=== PATIENT | female | born 2000 | race Caucasian/White ===

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

== ENCOUNTER 2018-04-15 08:02 | Outpatient (CLI) | payer OTHER, SELFPAY ==
[2018-04-15 08:35] VITALS: BMI 35.3
[2018-04-15 08:43] VITALS: BP 138/77; PULSE 69; RESP 20; TEMP 36.7; O2SAT 99; BMI 35.3
[2018-04-15 08:46] LABS: Appearance,Urine CLEAR (Clear); Bilirubin,Urine Negative (Negative); Blood, Urine Negative (Negative); Color,Urine YELLOW (Yellow); Glucose,Urine (UA) Negative (Negative); Ketones,Urine Negative (Negative); Leukocyte Esterase,Urine 1+ (Negative); Microscopic, Urine URINE MICROSCOPIC (MICROSCOPIC); Nitrate,Urine Negative (Negative); PH,Urine 6.5 (5.0-8.5); Protein,Urine Negative (Negative); Specific Gravity, Urine 1.015 (1.005-1.030); Urobilinogen,Urine 0.2 EU/dl (0.2)
[2018-04-15 08:57] LABS: Amphetamine/Metha Screen,Urine Negative ng/mL (<1000); Barbiturates Screen,Urine Negative ng/mL (<200); Benzodiazepines Screen,Urine Negative ng/mL (<200); Cannabinoid Screen,Urine Negative ng/mL (<50); Cocaine Screen,Urine Negative ng/mL (<300); Methadone Screen,Urine Negative ng/mL (<300); Opiate Screen,Urine Negative ng/mL (<300); Phencyclidine Screen,Urine Negative ng/mL (<25)
[2018-04-15 09:01] LABS: Bacteria,Urine 3+ /lpf
--- NOTE | 2018-04-15 09:59 | P.PN_ITS ---
Internal Medicine - PN: Subj *Date: 04/15/18 *Time: 09:57 Interval history: She is a 18-year-old 1 para 0 at 37 weeks gestational age. She had some nausea vomiting last night and then some diarrhea this morning. She thinks she may be dehydrated. She is otherwise well. Denies any contractions. Exam Vital signs and Labs for Last 24 Hours: Temp Pulse Resp BP Pulse Ox 98.0 F 69 20 138/77 99 04/15/18 08:43 04/15/18 08:43 04/15/18 08:43 04/15/18 08:43 04/15/18 08:43 Laboratory Results - last 24 hr 04/15/18 08:15: Urine Color Yellow, Urine Appearance Clear, Urine pH 6.5, Ur Specific [place] 1.015, Urine Protein Negative, Urine Glucose (UA) Negative, Urine Ketones Negative, Urine Blood Negative, Urine Nitrate Negative, Urine Bilirubin Negative, Urine Urobilinogen 0.2, Ur Leukocyte Esterase 1+ A, Urine WBC 5-10, Ur Squamous Epith Cells 10-20, Urine Bacteria 3+ 04/15/18 08:15: Urine Opiates Screen Negative, Urine Methadone Screen Negative, Ur Barbituates Screen Negative, Ur Phencyclidine Scrn Negative, Ur Amphetamines Screen Negative, U Benzodiazepines Scrn Negative, Urine Cocaine Screen Negative , U Marijuana (THC) Screen Negative I & O for Last 24 hours: Intake & Output 04/12/18 04/13/18 04/14/18 04/15/18 11:59 11:59 11:59 11:59 Weight 199 lb 8 oz - Constitutional no acute distress - *Routine HEENT Exam Head: Present: normocephalic - *Routine Respiratory Exam Comments: She is breathing normal. She has no respiratory distress. - *Routine Exam Comments: Her cervix is 3 cm 75% and station -1. Assessment and Plan (1) Nausea/vomiting in Current visit: Yes Status: Acute Category: Medical Code(s): O21.9 - Vomiting of , unspecified (2) Dehydration during Current visit: Yes Status: Acute Category: Medical Code(s): O26.899 - Other specified related conditions, unspecified trimester; E86.0 - Dehydration - Assessment and plan all Dx Assessment and Plan for all problems:: We have started an IV. We will give her a liter fluid and we will get a CBC and a Chem-7. She is seeing a doctor in [place] and follow-up with them as planned.
[2018-04-15 10:14] LABS: Basophils % 0.2 % (0.1-2.0); Eosinophils # 0.1 K/mm3 (0.0-0.4); Eosinophils % 0.9 % (0.1-12.0); Hematocrit 31.2 % (37.0-47.0); Hemoglobin 10.8 g/dL (12.2-16.2); Lymphocytes # 2.2 K/mm3 (0.7-4.5); Lymphocytes % 20.7 K/mm3 (10-50); Mean Corpuscular HGB Conc 34.4 g/dL (31.8-35.4); Mean Corpuscular Hemoglobin 30.9 pg (27.0-31.2); Mean Corpuscular Volume 89.9 fl (81-99); Mean Platelet Volume 10.4 fl (7.4-10.4); Monocytes # 0.7 K/mm3 (0.1-1.0); Monocytes % 6.9 % (1.7-9.3); Neutrophils # 7.4 K/mm3 (1.8-7.8); Neutrophils % 71.3 % (37.0-80.0); Platelet Count 221 K/mm3 (142-424); Red Blood Count 3.48 M/mm3 (4.20-5.40); Red Cell Distribution Width 13.7 % (11.5-17.5); White Blood Count 10.4 K/mm3 (4.5-13.0)
[2018-04-15 10:18] LABS: Anion Gap 15.1 mEq/L (5-15); Blood Urea Nitrogen 5 mg/dL (7-18); Calcium 9.5 mg/dL (8.5-10.1); Carbon Dioxide 23 mmol/L (21.0-32.0); Chloride 104 mmol/L (98-107); Creatinine Clearance Estimated 273 mL/min (0-300); Creatinine,Serum 0.47 mg/dL (0.55-1.02); Estimated Glomerular Filt Rate 169 ml/min (>60); GFR (African American) 204 ML/MIN (>60); Glucose 89 mg/dL (74-106); Potassium 4.1 mmoL/L (3.5-5.1); Sodium 138 mmol/L (136-145)
== END 2018-04-15 12:11 | disposition home or self-care (01) ==
LOC: OBOUT 08:05 → OB 08:06
PROVIDERS: Visit Provider Nurse Practitioner Obstetrics & Gynecology
DX: O26.893 Other specified pregnancy related conditions, third trimester (principal); Z3A.37 37 weeks gestation of pregnancy; R11.0 Nausea; R19.7 Diarrhea, unspecified; R10.9 Unspecified abdominal pain
CPT/HCPCS: 59025; 80048; 80305; 81001; 85025; 87086; 96360; 96361; 96372

== ENCOUNTER → 2018-07-05 16:19 | Outpatient (CLI) | payer OTHER, SELFPAY ==
[2018-07-07 07:14] LABS: Hep A Ab, IgM Negative (Negative); Hepatitis B Core Antibody IgM Negative (Negative); Hepatitis B Surface Antigen Negative (Negative)
[2018-07-09 06:15] LABS: Hepatitis C Antibody <0.1 s/co ratio (0.0-0.9)
== END ==
PROVIDERS: PCP Nurse Practitioner Family; Visit Provider Nurse Practitioner Family
DX: R53.83 Other fatigue (principal)
CPT/HCPCS: 36415; 80074

== ENCOUNTER → 2019-01-24 09:52 | Outpatient (CLI) | payer OTHER, SELFPAY ==
[2019-01-24 10:22] LABS: Basophils % 0.4 % (0.1-2.0); Eosinophils # 0.1 K/mm3 (0.0-0.4); Eosinophils % 1.3 % (0.1-12.0); Hemoglobin 12.7 g/dL (12.2-16.2); Lymphocytes # 2.3 K/mm3 (0.7-4.5); Lymphocytes % 35.7 % (10-50); Mean Corpuscular HGB Conc 33.5 g/dL (31.8-35.4); Mean Corpuscular Hemoglobin 29.9 pg (27.0-31.2); Mean Corpuscular Volume 89.2 fl (81-99); Mean Platelet Volume 7.5 fl (7.4-10.4); Monocytes # 0.3 K/mm3 (0.1-1.0); Monocytes % 5.2 % (1.7-9.3); Neutrophils # 3.6 K/mm3 (1.8-7.8); Neutrophils % 57.5 % (37.0-80.0); Platelet Count 354 K/mm3 (142-424); Red Blood Count 4.26 M/mm3 (4.20-5.40); Red Cell Distribution Width 13.1 % (11.5-17.5); White Blood Count 6.3 K/mm3 (4.8-10.8)
[2019-01-24 10:30] LABS: INR 1.04 (0.9-1.1); Prothrombin Time 10.7 seconds (9.4-11.8)
[2019-01-24 11:27] LABS: Alanine Aminotransferase 27 U/L (12-78); Albumin Level 3.6 gm/dL (3.4-5.0); Alkaline Phosphatase 77 U/L (46-116); Anion Gap 13.6 mEq/L (5-15); Aspartate Amino Transferase 14 U/L (15-37); Bilirubin,Total 0.2 mg/dL (0.2-1.0); Blood Urea Nitrogen 14 mg/dL (7-18); Calcium 9.1 mg/dL (8.5-10.1); Carbon Dioxide 24 mmol/L (21.0-32.0); Chloride 106 mmol/L (98-107); Creatinine,Serum 0.48 mg/dL (0.55-1.02); Estimated Glomerular Filt Rate 163 ml/min (>60); GFR (African American) 198 ML/MIN (>60); Globulin 3.6 gm/dl (1.3-3.2); Glucose 93 mg/dL (74-106); Potassium 4.6 mmoL/L (3.5-5.1); Sodium 139 mmol/L (136-145); Total Protein,Serum 7.2 gm/dL (6.4-8.2)
[2019-01-25 08:12] LABS: HIV Screen 4th Generation wRfx Non Reactive (Non Reactive)
[2019-01-25 09:29] LABS: Hep A Ab, IgM Negative (Negative); Hep B Core Ab, Total Negative (Negative); Hepatitis B Core Antibody IgM Negative (Negative); Hepatitis B Surface Antigen Negative (Negative)
[2019-01-25 14:43] LABS: Hep A Ab, Total Negative (Negative); Hepatitis B Surf Ab Quant 22.3 mIU/mL (Immunity>9.9); Hepatitis C Antibody <0.1 s/co ratio (0.0-0.9)
[2019-01-26 11:10] LABS: HCV Genotype Charge YES
== END ==
PROVIDERS: Visit Provider Nurse Practitioner Family
DX: Z20.5 Contact with and (suspected) exposure to viral hepatitis (principal)
CPT/HCPCS: 36415; 80053; 80074; 85025; 85610; 86703; 86704; 86706; 86708; 87340; 87522; 87902; G0432

== ENCOUNTER → 2019-04-02 16:52 | Outpatient (CLI) | payer OTHER, SELFPAY ==
[2019-04-02 20:10] LABS: T4 (Thyroxine) 8.3 ug/dl (4.7-13.3); Thyroid Stimulating Hormone 0.77 uIU/ml (0.358-3.740)
== END ==
PROVIDERS: Visit Provider Nurse Practitioner Family
DX: E66.9 Obesity, unspecified (principal)
CPT/HCPCS: 84436; 84443

== ENCOUNTER 2019-04-19 04:08 | Observation (INO) ==
[2019-04-19 04:55] LABS: Basophils % 0.2 % (0.1-2.0); Eosinophils % 0.3 % (0.1-12.0); Hematocrit 36.4 % (37.0-47.0); Hemoglobin 12.1 g/dL (12.2-16.2); Lymphocytes # 2.3 K/mm3 (0.7-4.5); Lymphocytes % 25.5 % (10-50); Mean Corpuscular HGB Conc 33.2 g/dL (31.8-35.4); Mean Corpuscular Volume 85.7 fl (81-99); Mean Platelet Volume 8.4 fl (7.4-10.4); Monocytes # 0.5 K/mm3 (0.1-1.0); Monocytes % 5.4 % (1.7-9.3); Neutrophils # 6.2 K/mm3 (1.8-7.8); Neutrophils % 68.5 % (37.0-80.0); Platelet Count 331 K/mm3 (142-424); Red Blood Count 4.25 M/mm3 (4.20-5.40); White Blood Count 9.1 K/mm3 (4.8-10.8)
[2019-04-19 05:00] LABS: Albumin Level 3.6 gm/dL (3.4-5.0); Albumin/Globulin Ratio 0.9 (1.1-1.8); Anion Gap 13.6 mEq/L (5-15); Bilirubin,Total 0.3 mg/dL (0.2-1.0); C-Reactive Protein 0.2 mg/L (0.0-0.9); Calcium 8.9 mg/dL (8.5-10.1); Globulin 4.2 gm/dl (1.3-3.2); Total Protein,Serum 7.8 gm/dL (6.4-8.2)
[2019-04-19 05:39] LABS: Microscopic, Urine URINE MICROSCOPIC (MICROSCOPIC)
[2019-04-19 05:42] LABS: Appearance,Urine CLEAR (Clear); Bilirubin,Urine Negative (Negative); Blood, Urine TRACE-L (Negative); Color,Urine YELLOW (Yellow); Glucose,Urine (UA) Negative (Negative); Ketones,Urine Negative (Negative); Leukocyte Esterase,Urine TRACE (Negative); PH,Urine 7.5 (5.0-8.5); Protein,Urine Negative (Negative); Specific Gravity, Urine 1.025 (1.005-1.030); Urobilinogen,Urine 0.2 EU/dl (0.2)
[2019-04-19 05:43] LABS: Erythrocyte Sedimentation Rate 36 mm/hr (0-20)
[2019-04-19 05:50] LABS: Bacteria,Urine 1+ /lpf; Mucus,Urine 1+ /lpf
--- NOTE | 2019-04-19 07:31 | Emergency Department Note ---
ED Disposition Clinical Impression: Acute appendicitis Qualifiers: Acute appendicitis type: unspecified acute appendicitis type Qualified Code(s): K35.80 - Unspecified acute appendicitis Disposition: Admitted as Observation Condition on Discharge: Good Instructions: DI for Acute Abdomen Referrals: Andra Paz APRN [Primary Care Provider] - - Critical Care Critical Care Time: No Attestation: On 04/19/19, the high probability of a clinically significant, sudden or life threatening deterioration of the following system(s) required my full and direct attention, intervention and personal management. The time I documented below is in addition to time spent performing reported procedures but includes the following listed in this critical care notation. Medical Decision Making - Medical Records Medical records reviewed: Yes: I reviewed the patient's medical records. - Rafa Inquiry Pt receiving controlled substance: No Vital Signs: 04/19/19 04:17 Temperature 98.3 F Temperature Source Oral Pulse Rate [Right] 86 Respiratory Rate 16 Blood Pressure [Right Arm] 117/60 Blood Pressure Mean [Right Arm] 79 Blood Pressure Source [Right Arm] Automatic Cuff Blood Pressure Position [Right Arm] Sitting 02 Sat by Pulse Oximetry 97 Oxygen Delivery Method Room Air - Lab Data Lab results reviewed: Yes: I reviewed the patient's lab results. Lab Results 04/19/19 04:35: WBC 9.1, RBC 4.25, Hgb 12.1 L, Hct 36.4 L, MCV 85.7, MCH 28.5, MCHC 33.2, RDW 13.0, Plt Count 331, MPV 8.4, Neut % (Auto) 68.5, Lymph % (Auto) 25.5, [place] % (Auto) 5.4, Eos % (Auto) 0.3, Baso % (Auto) 0.2, Neut # (Auto) 6.2, Lymph # (Auto) 2.3, [place] # (Auto) 0.5, Eos # (Auto) 0.0, Baso # (Auto) 0.0, ESR 36 H 04/19/19 04:35: Sodium 139, Potassium 3.6, Chloride 104, Carbon Dioxide 25, Anion Gap 13.6, BUN 10, Creatinine 0.67, Estimated Creat Clear 181, Estimated GFR 111, Est GFR ( Amer) 134, Glucose 116 H, Calcium 8.9, Total Bilirubin 0.3, AST 11 L, ALT 21, Alkaline Phosphatase 80, C-Reactive Protein 0.2, Total Protein 7.8, Albumin 3.6, Globulin 4.2 H, Albumin/Globulin Ratio 0.9 L, Amylase 40, Lipase 138 04/19/19 05:35: Urine Color Yellow, Urine Appearance Clear, Urine pH 7.5, Ur Specific [place] 1.025, Urine Protein Negative, Urine Glucose (UA) Negative, Urine Ketones Negative, Urine Blood Trace-l, Urine Nitrate Negative, Urine Bilirubin Negative, Urine Urobilinogen 0.2, Ur Leukocyte Esterase Trace, Urine RBC 3-5, Urine WBC 3-5, Ur Squamous Epith Cells 5-10, Urine Bacteria 1+, Urine Mucus 1+ 04/19/19 05:35: Urine HCG, Qual Negative Result diagrams: 04/19/19 04:35 04/19/19 04:35 Orders (Tests/Meds): ED MEDICATIONS Generic Name Dose Route Start Last Admin Trade Name Freq PRN Reason Stop Dose Admin Lactated Ringer's 1,000 mls @ 150 mls/hr 04/19/19 07:45 04/19/19 07:43 Lactated Ringer's 1000 Ml Bag IV 05/19/19 07:44 150 mls/hr .Q6H40M STEFAN Administration Sodium Chloride 10 ml 04/19/19 04:24 Saline Flush 10ml Syringe IV 05/19/19 04:23 NEEDED PRN Maintain IV Site Discontinued Medications Generic Name Dose Route Start Last Admin Trade Name Freq PRN Reason Stop Dose Admin Famotidine 20 mg 04/19/19 04:24 04/19/19 04:28 Pepcid 20mg/2ml Vial IV 04/19/19 04:25 20 mg ONCE ONE Administration Sodium Chloride 1,000 mls @ 999 mls/hr 04/19/19 04:30 04/19/19 04:27 Sod Chlor 0.9% 1000ml Bag IV 04/19/19 05:30 999 mls/hr .Q1H1M STEFAN Administration Sodium Chloride 1,000 mls @ 999 mls/hr 04/19/19 05:30 04/19/19 05:22 Sod Chlor 0.9% 1000ml Bag IV 04/19/19 06:30 999 mls/hr .Q1H1M STEFAN Administration Ioversol 75 ml 04/19/19 06:22 04/19/19 06:23 Rad-Optiray 350 100ml Vial IV 04/19/19 06:23 75 ml ONCE ONE Administration Protocol Ketorolac Tromethamine 30 mg 04/19/19 04:24 04/19/19 04:27 Toradol 30mg/Ml Vial IV 04/19/19 04:25 30 mg ONCE ONE Administration Metoclopramide HCl 10 mg 04/19/19 04:24 04/19/19 04:28 Reglan 10mg/2ml Vial IVP 04/19/19 04:25 10 mg ONCE ONE Administration Ondansetron HCl 4 mg 04/19/19 04:24 04/19/19 05:45 Zofran 4mg/2ml Vial IV 04/19/19 04:25 4 mg ONCE ONE Administration Sodium Chloride 8 ml 04/19/19 04:24 04/19/19 04:26 Saline Flush 10ml Syringe IV 04/19/19 04:25 8 ml ONCE ONE Administration Sodium Chloride 10 ml 04/19/19 06:22 04/19/19 06:23 Rad-Saline Flush 10ml Syringe IV 04/19/19 06:23 10 ml ONCE ONE Administration ORDERS Category Date Time Status CT abdomen pelvis w con Stat Cat Scan 04/19/19 04:24 Taken Diarrhea 6-11 Panel, Cdiff PCR Stat Lab 04/19/19 04:46 Ordered - CT Data CT Scan: Abdomen, Pelvis Time Received: 07:[address] Reviewed: Yes: I have viewed the radiologist's interpretation Preliminary Findings: Abnormal (acute appendicitis ) - Physician Consults Physician Consulted: paddy Reason -: Admission Nausea/Vomiting/Diarrhea HPI - General Chief complaint: Abdominal Pain Stated complaint: Stomach pain with vomiting and diarrhea Time Seen by Provider: 04/19/19 04:50 Mode of Arrival: Ambulatory Source of Information: Patient, Relative, Medical Record Limitations: No Limitations Description of Symptoms (Recalled from ER Triage Doc. by RN): Pt states she has upper abd pain with N/V/D - History of Present Illness HPI Narrative: pt with abd pain since about mn with periumbilical pain and nausea - MD complaint: nausea, abdominal pain Onset (ago): hour(s) Associated Abdominal Pain: Yes Location of pain: periumbilical Associated symptoms: denies other symptoms - Related Data Home Medications Medication Instructions Recorded Confirmed No Known Home Medications 04/19/19 04/19/19 Allergies Allergy/AdvReac Type Severity Reaction Status Date / Time No Known Allergies Allergy Verified 04/02/19 13:22 [facility] History - Hepatitis A Screen Drug use history?: No High risk sexual behaviors?: No History of sexually transmitted infection?: No Currently employed?: No Childcare worker?: No Do you have indoor plumbing?: Yes Do you have electricity?: Yes Attestation statement:: This patient has been screened for Hepatitis A risk factors. I have reviewed the patient's past medical history: Yes Medical History: Denies:: Cancer, Diabetes Mellitus Type 1, Diabetes Mellitus Type 2, MRSA Other Surgeries: Yes: Dilation and Curettage. No: Amputation: No Fractures: No - Social History Smoking Status: Never smoker Alcohol Intake: never Substance Use Type: denies use Occupational Status: unemployed Family Hx:: No significant family history ROS Obtained: Yes All systems reviewed & no additional complaints - Constitutional Constitutional: Denies fever(s) - Eyes Eyes: Denies change in vision - ENT Ears, Nose, Mouth, and Throat: Denies sore throat - Cardiovascular Cardiovascular: Denies chest pain - Respiratory Respiratory: No cough - Gastrointestinal Gastrointestingal: Reports: as per HPI, abdominal pain, nausea, vomiting. Denies: diarrhea - Genitourinary Female Genitourinary: Denies hematuria - Musculoskeletal Musculoskeletal: Denies joint pain - Integumentary/Breasts Skin/Breast: Denies rash - Neurologic Neurologic: Denies seizure-like activity Physical Exam - General General appearance: alert - Head Head exam: atraumatic - Eye Eye exam: Present: PERRL, EOMI - ENT ENT exam: Present: mucous membranes dry - Neck Neck exam: Present: trachea midline - Respiratory Respiratory exam: Absent: respiratory distress - Cardiovascular Cardiovascular exam: Present: regular rate - Abdominal Exam Abdominal exam: Present: soft, tenderness. Absent: guarding, rebound, rigidity Abdominal tenderness: Present: epigastrium, moderate - Extremities Exam Extremities exam: Present: full ROM - Neurological Exam Neurological exam: Present: alert, oriented X3, CN II-XII intact - Psychiatric Psychiatric exam: Present: normal affect - Skin Skin exam: Absent: rash
--- NOTE | 2019-04-19 08:17 | Progress Note ---
[facility] Anesthesia Checklist - Structural Data Admitted From: Emergency Dept Planned Operative Procedure/s: appy Consent for Planned Operative Procedure(s) Verified: Yes - Airway Assessment C-Spine Mobility Assessed: Yes TMJ Mobility Assessed: Yes Dentition: Good Dentition - Neurological Assessment Level of Consciousness: Awake, Alert, Appropriate - Anesthesia Plan Anesthesia Risk discussed: Yes Anesthesia Plan: Verified ASA Class: II Anesthesia Type: General [facility] History I have reviewed the patient's past medical history: Yes Medical History: Denies:: Cancer, Diabetes Mellitus Type 1, Diabetes Mellitus Type 2, MRSA *Have you ever received a pneumonia vaccine?: No *Have you received a flu vaccine this season?: No Other Surgeries: Yes: Dilation and Curettage. No: Amputation: No Fractures: No - *Social History Smoking Status: Never smoker Alcohol Intake: never Substance Use Type: denies use *Occupational Status:: unemployed *Travel in the last 8 weeks: None Family Hx:: No significant family history
--- NOTE | 2019-04-19 09:51 | Operative Note ---
Date of procedure: 04/19/19 Pre-op Diagnosis:: Appendicitis Post-op Diagnosis:: Appendicitis Procedure performed:: Laparoscopic appendectomy Surgeon:: Eddie Maynard MD NEEDLE FELT MAKING MACHINE OPERATOR:: Jad Nicole Anesthesia: GETA Estimated blood loss (mL): 10 Operative findings:: Inflamed/enlarged appendix with no sign of definite perforation Operative note:: After informed consent was obtained the patient was taken to the operating room and placed in the supine position. General anesthesia was induced and her abdomen was prepped and draped in a sterile fashion. After infiltration with local anesthetic a supraumbilical incision was made. A Veress needle was placed in position. The abdomen was insufflated. A 12 mm optical trocar was placed in position. Under direct visualization a 5 mm trocar was placed in the suprapubic position and an additional 5 mm trocar was placed in the left lower quadrant. The appendix was carefully elevated. The appendix was somewhat firm and enlarged with obvious signs of inflammation. No definite perforation noted. The mesoappendix was taken with harmonic damien. An Endo SHAUN stapler (Endopath 45) was utilized to transect the appendix at its base. The appendix was placed in a retrieval bag and removed through the supraumbilical trocar site. The right lower quadrant was thoroughly irrigated. No active bleeding or sign of injury was noted. Fascia at the supraumbilical trocar site was reapproximated with interrupted 0 Ethibond. All wounds were irrigated and skin was closed with 4-0 Monocryl in a subcuticular fashion. Steri-Strips were applied. The patient's anesthetic agents were reversed and she was extubated prior to transfer to recovery. Condition: stable Disposition: PACU Specimens:: Appendix Complications:: No immediate
--- NOTE | 2019-04-19 10:01 | Progress Note ---
[facility] Anesthesia Record Part II Discharge Time: 09:25 Destination: floor PACU nurse assessment reviewed?: Yes Patient Condition:: Good Anesthesia Complications:: None Swallowing reflex intact?: Yes Cyanosis?: No
--- NOTE | 2019-04-19 10:01 | Progress Note ---
[facility] Anesthesia Record Part I Intake, IV Amount: 1,500 Estimated blood loss (mL): 0 Urine output (mL): 450 Blood Pressure: 109/79 SaO2: 99 Pulse Rate: 99 Respiratory Rate: 12 Temperature: 98.7 F Patient is:: Awake, Stable Stable to PACU at:: 09:55
[2019-04-20 06:36] LABS: Hematocrit 31.8 % (37.0-47.0); Hemoglobin 10.2 g/dL (12.2-16.2); Lymphocytes # 1.3 K/mm3 (0.7-4.5); Lymphocytes % 14.5 % (10-50); Mean Corpuscular HGB Conc 32.2 g/dL (31.8-35.4); Mean Corpuscular Volume 87.9 fl (81-99); Mean Platelet Volume 9.4 fl (7.4-10.4); Monocytes # 0.6 K/mm3 (0.1-1.0); Monocytes % 6.7 % (1.7-9.3); Neutrophils # 6.9 K/mm3 (1.8-7.8); Neutrophils % 78.8 % (37.0-80.0); Platelet Count 227 K/mm3 (142-424); Red Blood Count 3.62 M/mm3 (4.20-5.40); Red Cell Distribution Width 13.1 % (11.5-17.5); White Blood Count 8.7 K/mm3 (4.8-10.8)
[2019-04-20 08:21] VITALS: BP 123/62
--- NOTE | 2019-04-20 08:57 | Progress Note ---
Subjective Patient reports: no new complaints Exam Vital signs and Labs for Last 24 Hours: Temp Pulse Resp BP Pulse Ox 98.8 F 53 L 16 123/62 99 04/20/19 08:00 04/20/19 08:00 04/20/19 08:00 04/20/19 08:00 04/20/19 08:00 Laboratory Results - last 24 hr 04/20/19 06:24: WBC 8.7, RBC 3.62 L, Hgb 10.2 L, Hct 31.8 L, MCV 87.9, MCH 28.3, MCHC 32.2, RDW 13.1, Plt Count 227 D, MPV 9.4, Neut % (Auto) 78.8, Lymph % (Auto) 14.5, [place] % (Auto) 6.7, Eos % (Auto) 0.0 L, Baso % (Auto) 0.0 L, Neut # (Auto) 6.9, Lymph # (Auto) 1.3, [place] # (Auto) 0.6, Eos # (Auto) 0.0, Baso # (Auto) 0.0 I & O for Last 24 hours: Intake & Output 04/17/19 04/18/19 04/19/19 04/20/19 11:59 11:59 11:59 11:59 Intake Total 1500 / 1500 2759 / 2759 Balance 1500 / 1500 2759 / 2759 Weight 221 lb 5 oz 220 lb 9 oz - Constitutional no acute distress - *Routine Cardiovascular Exam Present: RRR - *Routine Abdominal Exam Present: soft Comments: Dressings intact. No cellulitis. Progress Note: A&P (1) Acute appendicitis Status: Acute Assessment and plan: Overall, doing well status post laparoscopic appendectomy. Discharge home today with outpatient follow-up Current Visit: Yes
--- NOTE | 2019-04-20 09:01 | Discharge Summary ---
General - General Admission date:: 04/19/19 Discharge date: 04/20/19 HPI HPI: This is a 19-year-old female who presented to the emergency department with increasing lower abdominal pain and nausea. Evaluation included a CT scan that showed changes consistent with early appendicitis and the surgical service was consulted for further evaluation and management. Hospital Course Hospital Course: The patient underwent laparoscopic appendectomy. Please see operative report for detail. She convalesced well overnight and was deemed appropriate for discharge on the morning of postoperative day 1. She tolerated advancement of her diet. She remained afebrile with stable normal vital signs. Objective Vital signs: Temp Pulse Resp BP Pulse Ox 98.8 F 53 L 16 123/62 99 04/20/19 08:00 04/20/19 08:00 04/20/19 08:00 04/20/19 08:00 04/20/19 08:00 no acute distress - *Routine HEENT Exam Head: Present: normocephalic, atraumatic - *Routine Neck Exam Present: full ROM - Routine Chest/Breast/Axilla Exam Chest wall: Absent: tenderness - *Routine Respiratory Exam Absent: respiratory distress - *Routine Cardiovascular Exam Present: RRR - *Routine Abdominal Exam Present: soft - *Routine Extremities Exam Present: full ROM - Routine Back/Spine/Pelvis Exam Back/Spine: Present: full ROM - *Routine Skin Exam Present: intact - *Routine Neurological Exam Present: alert, oriented X3 - Routine Psychiatric Exam Present: normal affect Results Labs on day of discharge: Labs from last 24 hours 04/20/19 06:24 WBC 8.7 RBC 3.62 L Hgb 10.2 L Hct 31.8 L MCV 87.9 MCH 28.3 MCHC 32.2 RDW 13.1 Plt Count 227 D MPV 9.4 Neut % (Auto) 78.8 Lymph % (Auto) 14.5 [place] % (Auto) 6.7 Eos % (Auto) 0.0 L Baso % (Auto) 0.0 L Neut # (Auto) 6.9 Lymph # (Auto) 1.3 [place] # (Auto) 0.6 Eos # (Auto) 0.0 Baso # (Auto) 0.0 DS: Diagnosis - Discharge Diagnosis (1) Acute appendicitis Status: Acute Discharge Plan - Patient Discharge Instructions ACTIVITY: No heavy lifting DIET: advance to your usual diet Patient Instructions: DI for Appendicitis -- Adult, DI for an Appendectomy, DI for Surgical Site Infection, Appendectomy -- Laparoscopic Surgery, How To Wash Your Hands - Follow up Plan Follow up with: Eddie Maynard MD [Staff Physician] - (on April 30 or ) Disposition: Home, Self-Senior Care Medications: Home Medications Medication Instructions Recorded Confirmed Type Hydrocod/Acet 5/325 mg [[place] 1 - 2 tab PO Q6HP PRN #17 tab 04/20/19 Rx 5/325mg tablet] Prescriptions/Medication Reconciliation: No Action No Known Home Medications
== END 2019-04-20 10:30 | disposition home or self-care (01) ==
LOC: ER 04:08 → 2ND 04:08
PROVIDERS: ADMIT Surgery; ATTEND Surgery
DX: K35.80 Unspecified acute appendicitis
CPT/HCPCS: 36415; 74177; 80053; 81001; 81025; 82150; 83690; 85025; 85651; 86140; 88304; 96365; 96366; 96375; 99284; G0378; J2405; J2543; J2710; Q9967

== ENCOUNTER → 2019-04-29 17:58 | Outpatient (CLI) | payer OTHER, SELFPAY ==
[2019-04-29 19:06] LABS: Amphetamine/Metha Screen,Urine Negative ng/mL (<1000); Barbiturates Screen,Urine Negative ng/mL (<200); Benzodiazepines Screen,Urine Negative ng/mL (<200); Cannabinoid Screen,Urine Negative ng/mL (<50); Cocaine Screen,Urine Negative ng/mL (<300); Methadone Screen,Urine Negative ng/mL (<300); Opiate Screen,Urine Negative ng/mL (<300); Phencyclidine Screen,Urine Negative ng/mL (<25)
== END ==
PROVIDERS: Visit Provider Nurse Practitioner Family
DX: E66.9 Obesity, unspecified (principal)
CPT/HCPCS: 80305

== ENCOUNTER 2020-02-16 18:47 | Emergency (ER) | payer MEDICAID, SELFPAY ==
[2020-02-16 18:59] VITALS: BP 126/80; PULSE 83; RESP 16; TEMP 37.2; O2SAT 98; BMI 33.6
--- NOTE | 2020-02-16 19:05 | HMH.EDABDPAI ---
ED Disposition Clinical Impression: Constipation Qualifiers: Constipation type: unspecified constipation type Qualified Code(s): K59.00 - Constipation, unspecified Disposition: Home, Self-Care Condition on Discharge: Good Instructions: DI for Constipation Additional Instructions: Follow-up with your airplane and engine inspector tomorrow or Monday for further suggestions and management. Take MiraLAX daily in the morning and your pill stool softener at home at night. You can use an enema tonight and tomorrow if necessary. Ask your airplane and engine inspector for further suggestions and management. Return to the ED for vomiting, fever, acute worsening of symptoms. - Critical Care Critical Care Time: No Attestation: On 02/16/20, the high probability of a clinically significant, sudden or life threatening deterioration of the following system(s) required my full and direct attention, intervention and personal management. The time I documented below is in addition to time spent performing reported procedures but includes the following listed in this critical care notation. Medical Decision Making - Medical Records Medical records reviewed: Yes: I reviewed the patient's medical records. - Rafa Inquiry Pt receiving controlled substance: No Vital Signs: 02/16/20 18:59 Temperature 98.9 F Temperature Source Oral Pulse Rate [Left Radial] 83 Respiratory Rate 16 Blood Pressure [Right Arm] 126/80 Blood Pressure Mean [Right Arm] 95 Blood Pressure Position [Right Arm] Sitting 02 Sat by Pulse Oximetry 98 Oxygen Delivery Method Room Air - Lab Data Lab Results 02/16/20 19:24: Urine Color Yellow, Urine Appearance Clear, Urine pH 6.0, Ur Specific [place] >= 1.030, Urine Protein Negative, Urine Glucose (UA) Negative, Urine Ketones 1+, Urine Blood 1+, Urine Nitrate Negative, Urine Bilirubin Negative, Urine Urobilinogen 1.0, Ur Leukocyte Esterase Negative Orders (Tests/Meds): ORDERS Category Date Time Status Urinalysis and Microscopic Stat Lab 02/16/20 19:24 Results Medical Decision Narrative: Bedside ultrasound reveals an intrauterine . Urinalysis with no UTI. We discussed further continued management of her constipation including hydration, MiraLAX daily in the morning with her pill form of stool softener at night until she is having toothpaste consistency stools. She can attempt another enema tonight and tomorrow if necessary. Also advised calling her airplane and engine inspector for further suggestions and management. She is status post appendectomy, has no signs of infectious etiology, low suspicion for diverticulitis, bowel obstruction, perforation. She has bowel sounds in all 4 quadrants and a nontender abdomen on exam. We discussed return precautions including vomiting, fever, worsening symptoms. Discharged home. Abdominal Pain HPI - General Stated Complaint: abdominal pain x2 days, 9 weeks Time Seen by Provider: 02/16/20 19:00 Mode of Arrival: Ambulatory Source of Information: Patient Limitations: No Limitations - History of Present Illness HPI narrative: This is a 20-year-old G3, P1 female at 9 weeks with a past medical history significant for appendectomy who presents to the emergency department for suprapubic abdominal cramping that is 5/10 in intensity and described as mild . This is been ongoing for several days as she has become more and more constipated. She regularly struggles with constipation. She has tried a laxative and an enema at home yesterday, also Dulcolax with no production of stool. She is taking vitamins which can cause constipation. She denies any dysuria, hematuria. She has decreased appetite secondary to constipation and feels bloated. No upper abdominal pain. No vomiting or diarrhea. No fever. She denies any vaginal bleeding or discharge. - Related Data Home Medications Medication Instructions Recorded Confirmed No Known Home Medications 09/04/19 09/04/19 A
[2020-02-16 19:28] LABS: Appearance,Urine CLEAR (Clear); Bilirubin,Urine Negative (Negative); Blood, Urine 1+ (Negative); Color,Urine YELLOW (Yellow); Glucose,Urine (UA) Negative (Negative); Ketones,Urine 1+ (Negative); Leukocyte Esterase,Urine Negative (Negative); Microscopic, Urine URINE MICROSCOPIC (MICROSCOPIC); Nitrate,Urine Negative (Negative); Protein,Urine Negative (Negative); Specific Gravity, Urine >= 1.030 (1.005-1.030)
[2020-02-16 19:32] LABS: WBC,Urine Occasional #/hpf (0-3)
[2020-02-16 19:56] VITALS: BP 120/76; PULSE 76; RESP 16; TEMP 37.2; O2SAT 99
== END 2020-02-16 19:59 | disposition home or self-care (01) ==
PROVIDERS: Emergency Provider Emergency Medicine; PCP Physician Assistant
DX: K59.00 Constipation, unspecified (principal); Z3A.09 9 weeks gestation of pregnancy; Z90.49 Acquired absence of other specified parts of digestive tract
CPT/HCPCS: 81001; 99282

== ENCOUNTER 2020-02-23 12:07 | Emergency (ER) | payer MEDICAID, SELFPAY ==
[2020-02-23 12:23] VITALS: BP 127/69; PULSE 80; RESP 18; TEMP 36.7; O2SAT 96; BMI 30.1
--- NOTE | 2020-02-23 12:37 | PC.NURSE ---
PT STATES THAT OVER THE COURSE OF THE 2 WEEKS SHE HAS TRIED GOLITE, MINERAL OIL, 3 FLEETS ENEMAS, STOOL SOFTENER, LAXATIVE AND HAS HAD NO SUCCESS
[2020-02-23 12:40] LABS: Microscopic, Urine URINE MICROSCOPIC (MICROSCOPIC)
[2020-02-23 12:42] LABS: Appearance,Urine CLEAR (Clear); Bilirubin,Urine Negative (Negative); Blood, Urine TRACE-I (Negative); Color,Urine YELLOW (Yellow); Glucose,Urine (UA) Negative (Negative); Ketones,Urine Negative (Negative); Leukocyte Esterase,Urine Negative (Negative); Nitrate,Urine Negative (Negative); PH,Urine 7.5 (5.0-8.5); Protein,Urine Negative (Negative); Specific Gravity, Urine 1.025 (1.005-1.030); Urobilinogen,Urine 0.2 EU/dl (0.2)
[2020-02-23 12:42] LABS: Basophils # 0.1 K/mm3 (0-0.2); Basophils % 0.7 % (0.1-2.0); Eosinophils # 0.1 K/mm3 (0.0-0.4); Eosinophils % 0.7 % (0.1-12.0); Hematocrit 37.3 % (37.0-47.0); Hemoglobin 12.7 g/dL (12.2-16.2); Lymphocytes # 1.5 K/mm3 (0.7-4.5); Lymphocytes % 15.1 % (10-50); Mean Corpuscular HGB Conc 34.2 g/dL (31.8-35.4); Mean Corpuscular Hemoglobin 31.4 pg (27.0-31.2); Mean Corpuscular Volume 91.8 fl (81-99); Mean Platelet Volume 9.3 fl (7.4-10.4); Monocytes # 0.5 K/mm3 (0.1-1.0); Monocytes % 4.9 % (1.7-9.3); Neutrophils # 7.9 K/mm3 (1.8-7.8); Neutrophils % 78.5 % (37.0-80.0); Platelet Count 292 K/mm3 (142-424); Red Blood Count 4.06 M/mm3 (4.20-5.40); Red Cell Distribution Width 13.4 % (11.5-17.5); White Blood Count 10.1 K/mm3 (4.8-10.8)
[2020-02-23 12:44] LABS: Urine Pregnancy, HCG Qual. Positive (Negative)
[2020-02-23 12:46] LABS: Chloride 103 mmol/L (98-107); Potassium 4.6 mmoL/L (3.5-5.1); Sodium 136 mmol/L (136-145)
[2020-02-23 12:49] LABS: Bacteria,Urine 2+ /lpf; Squamous Epithelial Cell,Urine 20-50 #/hpf (0-5); WBC,Urine Occasional #/hpf (0-3)
[2020-02-23 12:49] LABS: Alanine Aminotransferase 27 U/L (12-78); Albumin Level 4.4 g/dl (3.5-5.0); Albumin/Globulin Ratio 1.2 (1.1-1.8); Alkaline Phosphatase 77 U/L (38-126); Anion Gap 12.6 mEq/L (5-15); Aspartate Amino Transferase 25 U/L (14-36); Bilirubin,Total 0.6 mg/dl (0.2-1.3); Blood Urea Nitrogen 7 mg/dl (7-17); Calcium 9.8 mg/dl (8.4-10.2); Carbon Dioxide 25 mmol/L (22.0-30.0); Creatinine Clearance Estimated 215 mL/min (50-200); Estimated Glomerular Filt Rate 154 ml/min (>60); GFR (African American) 187 ML/MIN (>60); Globulin 3.7 g/dL (1.3-3.2); Glucose 89 mg/dl (74-100); Total Protein,Serum 8.1 g/dl (6.3-8.2)
[2020-02-23 13:38] VITALS: BP 134/74; PULSE 95; RESP 18; O2SAT 100
--- NOTE | 2020-02-23 14:05 | HMH.EDPREG ---
ED Disposition Clinical Impression: Constipation Qualifiers: Constipation type: unspecified constipation type Qualified Code(s): K59.00 - Constipation, unspecified Qualifiers: Weeks of gestation: 9 weeks Qualified Code(s): Z3A.09 - 9 weeks gestation of Disposition: Home, Self-Care Condition on Discharge: Good Instructions: DI for Constipation Additional Instructions: fluids and use miralax and call pcp and ob Referrals: Tatum Steinberg PA [Primary Care Provider] - - Critical Care Critical Care Time: No Attestation: On 02/23/20, the high probability of a clinically significant, sudden or life threatening deterioration of the following system(s) required my full and direct attention, intervention and personal management. The time I documented below is in addition to time spent performing reported procedures but includes the following listed in this critical care notation. Medical Decision Making - Medical Records Medical records reviewed: Yes: I reviewed the patient's medical records. - Rafa Inquiry Pt receiving controlled substance: No Vital Signs: 02/23/20 12:23 02/23/20 13:38 Temperature 98.1 F Temperature Source Oral Pulse Rate [Right Radial] 80 95 H Respiratory Rate 18 18 Blood Pressure [Right Arm] 127/69 134/74 Blood Pressure Mean [Right Arm] 88 94 Blood Pressure Source [Right Arm] Automatic Cuff Automatic Cuff Blood Pressure Position [Right Arm] Sitting Sitting 02 Sat by Pulse Oximetry 96 100 Oxygen Delivery Method Room Air - Lab Data Lab results reviewed: Yes: I reviewed the patient's lab results. Lab Results 02/23/20 12:10: Urine HCG, Qual Positive 02/23/20 12:31: WBC 10.1, RBC 4.06 L, Hgb 12.7, Hct 37.3, MCV 91.8, MCH 31.4 H, MCHC 34.2, RDW 13.4, Plt Count 292, MPV 9.3, Neut % (Auto) 78.5, Lymph % (Auto) 15.1, [place] % (Auto) 4.9, Eos % (Auto) 0.7, Baso % (Auto) 0.7, Neut # (Auto) 7.9 H, Lymph # (Auto) 1.5, [place] # (Auto) 0.5, Eos # (Auto) 0.1, Baso # (Auto) 0.1 02/23/20 12:31: Sodium 136, Potassium 4.6, Chloride 103, Carbon Dioxide 25, Anion Gap 12.6, BUN 7, Creatinine 0.50 L, Estimated Creat Clear 215, Estimated GFR 154, Est GFR ( Amer) 187, Glucose 89, Calcium 9.8, Total Bilirubin 0.6, AST 25, ALT 27, Alkaline Phosphatase 77, Total Protein 8.1, Albumin 4.4, Globulin 3.7 H, Albumin/Globulin Ratio 1.2 02/23/20 12:32: Urine Color Yellow, Urine Appearance Clear, Urine pH 7.5, Ur Specific [place] 1.025, Urine Protein Negative, Urine Glucose (UA) Negative, Urine Ketones Negative, Urine Blood Trace-i, Urine Nitrate Negative, Urine Bilirubin Negative, Urine Urobilinogen 0.2, Ur Leukocyte Esterase Negative, Urine RBC 3-5, Urine WBC Occasional, Ur Squamous Epith Cells 20-50, Urine Bacteria 2+ Result diagrams: 02/23/20 12:31 02/23/20 12:31 Orders (Tests/Meds): ED MEDICATIONS Discontinued Medications Generic Name Dose Route Start Last Admin Trade Name Freq PRN Reason Stop Dose Admin Sodium Chloride 1,000 mls @ 999 mls/hr 02/23/20 12:32 02/23/20 12:37 Sod Chlor 0.9% 1000ml Bag IV 02/23/20 13:32 999 mls/hr .Q1H1M ONE Administration ORDERS Category Date Time Status Urine Culture Stat Micro 02/23/20 12:32 Received HPI - General Chief complaint: OB/Uterine Contractions Stated complaint: No BM for 2 weeks, 9 weeks Time Seen by Provider: 02/23/20 13:00 Mode of Arrival: Ambulatory Source of Information: Patient, Medical Record Limitations: No Limitations Description of Symptoms (Recalled from ER Triage Doc. by RN): PT STATES THAT SHE IS CURRENTLY 9 WKS 5 DAYS AND HAS NOT HAD A BM X2 WEEKS. PT STATES THAT SHE HAS BEEN EVALUATED BY TWICE, GIVEN GOLITE AND MINERAL OIL, AND STILL NO SUCCESS. PT STATES THAT TODAY THE ABD CRAMPING HAS BECOME WORSE ON THE LT SIDE AND SHE VOMITED 1.5 HOURS AGO. PT ADVISES THAT SHE CALLED HER OB AND SHE WAS TOLD TO COME TO THE ED FOR EVALUATION. - History of Present Illness
[2020-02-23 14:17] VITALS: BP 115/76; PULSE 75; RESP 14; TEMP 36.7; O2SAT 98
[2020-02-23 14:47] LABS: T4 (Thyroxine) 22.4 ug/dl (5.53-11.0)
[2020-02-23 15:01] LABS: Thyroid Stimulating Hormone < 0.02 uIU/mL (0.465-4.68)
== END 2020-02-23 14:23 | disposition home or self-care (01) ==
PROVIDERS: Emergency Provider Emergency Medicine; PCP Physician Assistant
DX: K59.00 Constipation, unspecified (principal); Z3A.09 9 weeks gestation of pregnancy
CPT/HCPCS: 80053; 81001; 81025; 84436; 84443; 85025; 87086; 96365; 99283

== ENCOUNTER 2020-03-07 23:53 | Emergency (ER) | payer MEDICAID, SELFPAY ==
[2020-03-07 23:54] VITALS: BP 131/64; PULSE 82; RESP 16; TEMP 36.8; O2SAT 96; BMI 31.8
--- NOTE | 2020-03-08 00:07 | HMH.EDGENADL ---
ED Disposition Clinical Impression: Hyperemesis gravidarum, Dehydration Disposition: Home, Self-Care Condition on Discharge: Good Instructions: DI for Dehydration -- Adult, DI for Hyperemesis Gravidarum Additional Instructions: You may try [id number] Unisom with vitamin B6 (one each daily). Reglan as prescribed. Drink plenty of fluids. 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 Call Monday to make appointment Prescriptions: Metoclopramide HCl [Reglan 10mg Tab] 10 mg PO Q8HP PRN #20 tab PRN Reason: Nausea And Vomiting Transmission Status: Received by [id number] Referrals: Tatum Steinberg PA [Primary Care Provider] - - Critical Care Critical Care Time: No Attestation: On 03/07/20, the high probability of a clinically significant, sudden or life threatening deterioration of the following system(s) required my full and direct attention, intervention and personal management. The time I documented below is in addition to time spent performing reported procedures but includes the following listed in this critical care notation. Medical Decision Making - Medical Records Medical records reviewed: Yes: I reviewed the patient's medical records. - Rafa Inquiry Pt receiving controlled substance: No Vital Signs: 03/07/20 23:54 03/08/20 01:23 Temperature 98.2 F 98.2 F Temperature Source Oral Oral Pulse Rate 65 Pulse Rate [Left Radial] 82 Respiratory Rate 16 17 Blood Pressure 125/80 Blood Pressure [Right Arm] 131/64 Blood Pressure Mean [Right Arm] 86 Blood Pressure Source Automatic Cuff Blood Pressure Source [Right Arm] Automatic Cuff Blood Pressure Position Sitting Blood Pressure Position [Right Arm] Sitting 02 Sat by Pulse Oximetry 96 Oxygen Delivery Method Room Air Room Air - Lab Data Lab results reviewed: Yes: I reviewed the patient's lab results. Lab Results 03/08/20 00:10: WBC 11.5 H, RBC 4.08 L, Hgb 12.5, Hct 36.2 L, MCV 88.9, MCH 30.7, MCHC 34.6, RDW 13.0, Plt Count 275, MPV 8.7, Neut % (Auto) 77.4, Lymph % (Auto) 17.4, [place] % (Auto) 4.5, Eos % (Auto) 0.6, Baso % (Auto) 0.1, Neut # (Auto) 8.9 H, Lymph # (Auto) 2.0, [place] # (Auto) 0.5, Eos # (Auto) 0.1, Baso # (Auto) 0.0 03/08/20 00:10: Sodium 135 L, Potassium 4.4, Chloride 99, Carbon Dioxide 27, Anion Gap 13.4, BUN 7, Creatinine 0.50 L, Estimated Creat Clear 227, Estimated GFR 154, Est GFR ( Amer) 187, Glucose 106 H, Calcium 10.0, Total Bilirubin 0.5, AST 30, ALT 15, Alkaline Phosphatase 80, Total Protein 8.4 H, Albumin 4.6, Globulin 3.8 H, Albumin/Globulin Ratio 1.2 03/08/20 00:13: Urine Color Dk yellow, Urine Appearance Sl cloudy, Urine pH 6.5, Ur Specific [place] >= 1.030, Urine Protein Negative, Urine Glucose (UA) Negative, Urine Ketones 1+, Urine Blood 1+, Urine Nitrate Negative, Urine Bilirubin Negative, Urine Urobilinogen 1.0, Ur Leukocyte Esterase Negative, Ur Squamous Epith Cells 20-50, Amorphous Sediment Trace, Urine Mucus 4+ Result diagrams: 03/08/20 00:10 03/08/20 00:10 Orders (Tests/Meds): ED MEDICATIONS Discontinued Medications Generic Name Dose Route Start Last Admin Trade Name Rodriq PRN Reason Stop Dose Admin Dextrose/Sodium Chloride 1,000 mls @ 500 mls/hr 03/08/20 00:15 03/08/20 00:17 Dextrose 5%-0.9% Nacl Iv Soln IV 04/07/20 00:14 500 mls/hr .Q2H STEFAN Administration General Adult HPI - General Chief complaint: Nausea/Vomiting/Diarrhea Stated complaint: Nausea and Vomiting;11 weeks Time Seen by Provider: 03/08/20 00:07 Mode of Arrival: Ambulatory Limitations: No Limitations Description of Symptoms (Recalled from ER Triage Doc. by RN): pt stated shes 11 weeks and c/o severe nausea and vomiting that has worsened over the past couple of days. pt stated i havent even been able to keep much water down pt denies any abd. pain or diarrhea at this time - History of Present Illness HPI narrative: The patient is 11 weeks gestation .
[2020-03-08 00:20] LABS: Microscopic, Urine URINE MICROSCOPIC (MICROSCOPIC)
[2020-03-08 00:23] LABS: Appearance,Urine SL CLOUDY (Clear); Blood, Urine 1+ (Negative); Color,Urine DK YELLOW (Yellow); Glucose,Urine (UA) Negative (Negative); Ketones,Urine 1+ (Negative); Leukocyte Esterase,Urine Negative (Negative); Nitrate,Urine Negative (Negative); PH,Urine 6.5 (5.0-8.5); Protein,Urine Negative (Negative); Specific Gravity, Urine >= 1.030 (1.005-1.030)
[2020-03-08 00:24] LABS: Basophils % 0.1 % (0.1-2.0); Eosinophils # 0.1 K/mm3 (0.0-0.4); Eosinophils % 0.6 % (0.1-12.0); Hematocrit 36.2 % (37.0-47.0); Hemoglobin 12.5 g/dL (12.2-16.2); Lymphocytes % 17.4 % (10-50); Mean Corpuscular HGB Conc 34.6 g/dL (31.8-35.4); Mean Corpuscular Hemoglobin 30.7 pg (27.0-31.2); Mean Corpuscular Volume 88.9 fl (81-99); Mean Platelet Volume 8.7 fl (7.4-10.4); Monocytes # 0.5 K/mm3 (0.1-1.0); Monocytes % 4.5 % (1.7-9.3); Neutrophils # 8.9 K/mm3 (1.8-7.8); Neutrophils % 77.4 % (37.0-80.0); Platelet Count 275 K/mm3 (142-424); Red Blood Count 4.08 M/mm3 (4.20-5.40); White Blood Count 11.5 K/mm3 (4.8-10.8)
[2020-03-08 00:30] LABS: Amorphous Sediment,Urine Trace /lpf; Bilirubin,Urine Negative (Negative); Mucus,Urine 4+ /lpf; Squamous Epithelial Cell,Urine 20-50 #/hpf (0-5)
[2020-03-08 00:31] LABS: Alanine Aminotransferase 15 U/L (12-78); Albumin Level 4.6 g/dl (3.5-5.0); Albumin/Globulin Ratio 1.2 (1.1-1.8); Alkaline Phosphatase 80 U/L (38-126); Anion Gap 13.4 mEq/L (5-15); Aspartate Amino Transferase 30 U/L (14-36); Bilirubin,Total 0.5 mg/dl (0.2-1.3); Blood Urea Nitrogen 7 mg/dl (7-17); Carbon Dioxide 27 mmol/L (22.0-30.0); Chloride 99 mmol/L (98-107); Creatinine Clearance Estimated 227 mL/min (50-200); Estimated Glomerular Filt Rate 154 ml/min (>60); GFR (African American) 187 ML/MIN (>60); Globulin 3.8 g/dL (1.3-3.2); Glucose 106 mg/dl (74-100); Potassium 4.4 mmoL/L (3.5-5.1); Sodium 135 mmol/L (136-145); Total Protein,Serum 8.4 g/dl (6.3-8.2)
[2020-03-08 01:23] VITALS: BP 125/80; PULSE 65; RESP 17; TEMP 36.8; O2SAT 98
== END 2020-03-08 01:24 | disposition home or self-care (01) ==
PROVIDERS: Emergency Provider Emergency Medicine; PCP Physician Assistant
DX: O21.1 Hyperemesis gravidarum with metabolic disturbance (principal); Z3A.11 11 weeks gestation of pregnancy; Z90.49 Acquired absence of other specified parts of digestive tract
CPT/HCPCS: 80053; 81001; 85025; 96365; 99282

== ENCOUNTER 2020-03-23 11:24 | Emergency (ER) | payer MEDICAID, SELFPAY ==
[2020-03-23 11:36] VITALS: BP 120/75; PULSE 93; RESP 16; TEMP 36.8; O2SAT 96; BMI 32.8
--- NOTE | 2020-03-23 11:54 | US_ITS ---
PROCEDURE: Ultrasound OB less than 14 weeks CLINICAL INDICATION: 13w 6d gestation, LL pelvic cramping COMPARISON: PTV US PELVIS-TRANSVAGINAL ONLY from 05/24/2017 FINDINGS: There is a single live fetus present with an average ultrasound age of 13 weeks and 4 days. heart tones are noted at 158 beats per minute. heart and body motion noted. The cervix is closed at 2.3 cm. The placenta is forming posteriorly. No obvious retroplacental hemorrhage. BPD 13 the weeks 6 days, HC 13 weeks 5 days, AC 13 weeks 6 days, FL 13 weeks 2 days IMPRESSION: Live IUP at 13 weeks 4 days Dictated by: Nicolas Garvey MD 03/23/2020 14:30 Electronically signed by Nicolas Garvey MD in [place] 03/23/2020 14:30
[2020-03-23 12:04] LABS: Microscopic, Urine URINE MICROSCOPIC (MICROSCOPIC)
--- NOTE | 2020-03-23 12:05 | PC.NURSE ---
Pt to rad.
[2020-03-23 12:06] LABS: Appearance,Urine CLEAR (Clear); Blood, Urine TRACE-L (Negative); Color,Urine YELLOW (Yellow); Glucose,Urine (UA) Negative (Negative); Ketones,Urine Negative (Negative); Leukocyte Esterase,Urine Negative (Negative); Nitrate,Urine Negative (Negative); PH,Urine 7.5 (5.0-8.5); Protein,Urine TRACE (Negative)
[2020-03-23 12:07] LABS: Urine Pregnancy, HCG Qual. Positive (Negative)
[2020-03-23 12:08] LABS: Bilirubin,Urine Negative (Negative)
[2020-03-23 12:12] LABS: Bacteria,Urine Trace /lpf; Mucus,Urine Trace /lpf
[2020-03-23 12:12] LABS: Basophils % 0.2 % (0.1-2.0); Eosinophils # 0.1 K/mm3 (0.0-0.4); Eosinophils % 0.6 % (0.1-12.0); Hematocrit 34.8 % (37.0-47.0); Hemoglobin 12.3 g/dL (12.2-16.2); Lymphocytes # 1.6 K/mm3 (0.7-4.5); Lymphocytes % 18.6 % (10-50); Mean Corpuscular HGB Conc 35.4 g/dL (31.8-35.4); Mean Corpuscular Hemoglobin 30.8 pg (27.0-31.2); Mean Corpuscular Volume 87.1 fl (81-99); Mean Platelet Volume 8.4 fl (7.4-10.4); Monocytes # 0.4 K/mm3 (0.1-1.0); Neutrophils # 6.7 K/mm3 (1.8-7.8); Neutrophils % 76.6 % (37.0-80.0); Platelet Count 249 K/mm3 (142-424); Red Cell Distribution Width 12.8 % (11.5-17.5); White Blood Count 8.7 K/mm3 (4.8-10.8)
--- NOTE | 2020-03-23 12:54 | HMH.EDPREG ---
ED Disposition Clinical Impression: Vaginal bleeding during Disposition: Home, Self-Care Condition on Discharge: Good Instructions: DI for Resolved Contractions Referrals: Tatum Steinberg PA [Primary Care Provider] - - Critical Care Critical Care Time: No Attestation: On , the high probability of a clinically significant, sudden or life threatening deterioration of the following system(s) required my full and direct attention, intervention and personal management. The time I documented below is in addition to time spent performing reported procedures but includes the following listed in this critical care notation. Medical Decision Making - Medical Records Medical records reviewed: Yes: I reviewed the patient's medical records. - Rafa Inquiry Pt receiving controlled substance: No Vital Signs: 03/23/20 11:36 Temperature 98.3 F Temperature Source Oral Pulse Rate [Right Radial] 93 H Respiratory Rate 16 Blood Pressure [Right Arm] 120/75 Blood Pressure Mean [Right Arm] 90 Blood Pressure Source [Right Arm] Automatic Cuff Blood Pressure Position [Right Arm] Sitting 02 Sat by Pulse Oximetry 96 Oxygen Delivery Method Room Air - Lab Data Lab results reviewed: Yes: I reviewed the patient's lab results. Lab Results 03/23/20 11:40: Urine Color Yellow, Urine Appearance Clear, Urine pH 7.5, Ur Specific [place] 1.020, Urine Protein Trace, Urine Glucose (UA) Negative, Urine Ketones Negative, Urine Blood Trace-l, Urine Nitrate Negative, Urine Bilirubin Negative, Urine Urobilinogen 1.0, Ur Leukocyte Esterase Negative, Urine RBC 3-5, Urine WBC 5-10, Ur Squamous Epith Cells 10-20, Urine Bacteria Trace, Urine Mucus Trace 03/23/20 11:40: Urine HCG, Qual Positive 03/23/20 12:00: WBC 8.7, RBC 4.00 L, Hgb 12.3, Hct 34.8 L, MCV 87.1, MCH 30.8, MCHC 35.4, RDW 12.8, Plt Count 249, MPV 8.4, Neut % (Auto) 76.6, Lymph % (Auto) 18.6, [place] % (Auto) 4.0, Eos % (Auto) 0.6, Baso % (Auto) 0.2, Neut # (Auto) 6.7, Lymph # (Auto) 1.6, [place] # (Auto) 0.4, Eos # (Auto) 0.1, Baso # (Auto) 0.0 Result diagrams: 03/23/20 12:00 Orders (Tests/Meds): ORDERS Category Date Time Status US transvaginal Stat Exams 03/23/20 11:54 Ordered Beta HCG, Quant [HCG,Quantitative] Stat Lab 03/23/20 12:00 Received - US Data US Images: Abdomen Preliminary Findings: Normal/NAD HPI - General Chief complaint: OB/Uterine Contractions Stated complaint: 14 weeks preg cramping bleeding Time Seen by Provider: 03/23/20 12:50 Mode of Arrival: Ambulatory Limitations: No Limitations Description of Symptoms (Recalled from ER Triage Doc. by RN): Pt reports L sided pelvic cramping that began yesterday, also reports thick, gel like discharge yesterday and today with spots of blood in it. Pt reports is 13W 6D gestation. - History of Present Illness HPI Narrative: 20-year-old female presents at 14 weeks she is a G1, P0. She is having vaginal bleeding. Also some suprapubic discomfort. Patient denies any recent cough or shortness of breath, patient denies any sore throat or headache, patient denies any loss of taste or smell, patient denies any malaise or fatigue, patient denies any abdominal pain nausea vomiting or diarrhea. : yes Date of Last Menstrual Period: [id number] - Related Data Para: 1 Previous Rx's Medication Instructions Recorded Metoclopramide HCl [Reglan 10mg 10 mg PO Q8HP PRN #20 tab 03/08/20 Tab] Allergies Allergy/AdvReac Type Severity Reaction Status Date / Time No Known Allergies Allergy Verified 05/01/19 10:16 [facility] History - Hepatitis A Screen Drug use history?: No High risk sexual behaviors?: No History of sexually transmitted infection?: No Currently employed?: No Childcare worker?: No Do you have indoor plumbing?: Yes Do you have electricity?: Yes Attestation statement:: This patient has been screened for Hepatitis A risk factors. I have reviewed the
[2020-03-23 13:07] VITALS: BP 123/64; PULSE 82; RESP 18; TEMP 36.8; O2SAT 96
== END 2020-03-23 13:08 | disposition home or self-care (01) ==
LOC: ER 06-04 16:17
PROVIDERS: Emergency Provider Family Medicine; PCP Physician Assistant
DX: O20.9 Hemorrhage in early pregnancy, unspecified (principal)
CPT/HCPCS: 76801; 81001; 81025; 84702; 85025; 99283

== ENCOUNTER 2020-06-18 16:29 | Outpatient (CLI) | payer MEDICAID, SELFPAY ==
[2020-06-18 17:05] VITALS: BP 126/69; PULSE 95; RESP 18; TEMP 37.1; O2SAT 97; BMI 34.5
[2020-06-18 17:12] LABS: Microscopic, Urine URINE MICROSCOPIC (MICROSCOPIC)
[2020-06-18 17:13] LABS: Appearance,Urine CLEAR (Clear); Bilirubin,Urine Negative (Negative); Blood, Urine Negative (Negative); Color,Urine YELLOW (Yellow); Glucose,Urine (UA) Negative (Negative); Ketones,Urine TRACE (Negative); Leukocyte Esterase,Urine Negative (Negative); Nitrate,Urine Negative (Negative); Protein,Urine Negative (Negative)
[2020-06-18 17:26] LABS: Barbiturates Screen,Urine Negative ng/ml (<200); Benzodiazepines Screen,Urine Negative ng/ml (<200)
[2020-06-18 17:27] LABS: Amphetamine/Metha Screen,Urine Negative ng/ml (<1000); Methadone Screen,Urine Negative ng/ml (<300)
[2020-06-18 17:28] LABS: Cannabinoid Screen,Urine Negative ng/ml (<50)
[2020-06-18 17:29] LABS: Cocaine Screen,Urine Negative ng/ml (<300); Opiate Screen,Urine Negative ng/ml (<300)
[2020-06-18 17:30] LABS: Phencyclidine Screen,Urine Negative ng/ml (<25)
[2020-06-18 17:31] LABS: Amorphous Sediment,Urine 1+ /lpf; Bacteria,Urine 1+ /lpf; RBC,Urine Occasional #/hpf (0-3)
[2020-06-18 17:35] LABS: Fetal Membrane Rupture (Rapid) Negative (Negative)
== END 2020-06-18 18:00 | disposition home or self-care (01) ==
LOC: OBOUT 16:31 → OB 16:32
PROVIDERS: PCP Emergency Medicine; Visit Provider Obstetrics & Gynecology
DX: O26.92 Pregnancy related conditions, unspecified, second trimester (principal); Z3A.26 26 weeks gestation of pregnancy; R10.9 Unspecified abdominal pain
CPT/HCPCS: 59025; 80305; 81001; 84112; G0463

== ENCOUNTER 2020-08-04 10:49 | Outpatient (CLI) | payer MEDICAID, SELFPAY ==
[2020-08-04 11:15] VITALS: BP 135/78; PULSE 97; RESP 18; TEMP 36.9; O2SAT 98; BMI 35.6
[2020-08-04 11:41] LABS: Barbiturates Screen,Urine Negative ng/ml (<200)
[2020-08-04 11:42] LABS: Amphetamine/Metha Screen,Urine Negative ng/ml (<1000); Benzodiazepines Screen,Urine Negative ng/ml (<200); Microscopic, Urine URINE MICROSCOPIC (MICROSCOPIC)
[2020-08-04 11:43] LABS: Methadone Screen,Urine Negative ng/ml (<300)
[2020-08-04 11:44] LABS: Appearance,Urine SL CLOUDY (Clear); Blood, Urine Negative (Negative); Cannabinoid Screen,Urine Negative ng/ml (<50); Cocaine Screen,Urine Negative ng/ml (<300); Color,Urine YELLOW (Yellow); Glucose,Urine (UA) Negative (Negative); Ketones,Urine TRACE (Negative); Leukocyte Esterase,Urine Negative (Negative); Nitrate,Urine Negative (Negative); PH,Urine 6.5 (5.0-8.5); Protein,Urine Negative (Negative); Specific Gravity, Urine 1.025 (1.005-1.030)
[2020-08-04 11:45] LABS: Opiate Screen,Urine Negative ng/ml (<300)
[2020-08-04 11:46] LABS: Phencyclidine Screen,Urine Negative ng/ml (<25)
[2020-08-04 11:52] LABS: Bilirubin,Urine Negative (Negative)
[2020-08-04 12:12] LABS: Bacteria,Urine Trace /lpf; WBC,Urine Occasional #/hpf (0-3)
== END 2020-08-04 12:05 | disposition home or self-care (01) ==
LOC: OBOUT 10:54 → OB 10:54
PROVIDERS: PCP Emergency Medicine; Visit Provider Obstetrics & Gynecology
DX: O26.893 Other specified pregnancy related conditions, third trimester (principal); Z3A.33 33 weeks gestation of pregnancy; M54.5 Low back pain; W19.XXXA Unspecified fall, initial encounter
CPT/HCPCS: 59025; 80305; 81001; G0463

== ENCOUNTER 2020-08-18 10:00 | Emergency (ER) | payer MEDICAID, SELFPAY ==
[2020-08-18 10:40] VITALS: BP 118/74; PULSE 76; RESP 21; TEMP 36.9; O2SAT 100; BMI 35.4
--- NOTE | 2020-08-18 11:02 | HMH.EDUTC ---
[facility] [place] Disposition Clinical Impression: Encounter for laboratory testing for COVID-19 virus Disposition: Home, Self-Care Condition on Discharge: Good Instructions: Preventing the Spread of Coronavirus Discharge Instructions Additional Instructions: *Monitor Temp, Over the counter Motrin or Tylenol as directed/as needed Tylenol every 4 hours and Motrin every 6 hours (as long as your family doctor has told you that you can take it) for fever or pain. and straight to ER if unable to lower temp less than 101.0 after medication given *Warm salt water gargles may help to soothe the throat *Throat Lozenges *Warm fluids like tea with honey may help to soothe the throat *Sleep elevated *Humidifier/Vaporizer Follow up IMMEDIATELY for new or worsening symptoms or no Noticeable improvement over the next 48-72 hours. 911 for difficulty breathing or swallowing You was tested for today for COVID19 your test result should be back in the next 24-48 hours, you may call to the [facility] tomorrow to see if your test results are back and the result [phone] [facility] hours are 9am-9pm You was given a handout with instructions for Self Quarantine and Self isolation for while you wait on test results and what to do if they are positive If you are positive the Health Dept will be contacting you also Referrals: Vishal Munson MD [Primary Care Provider] - As needed Forms: Work/School Release Time of Disposition: 11:05 Medical Decision Making - Rafa Inquiry Pt receiving controlled substance: No Rafa was queried for this patient: No Vital Signs: 08/18/20 10:40 Temperature 98.4 F Temperature Source Oral Pulse Rate [Right Brachial] 76 Respiratory Rate 21 Blood Pressure [Right Arm] 118/74 Blood Pressure Mean [Right Arm] 88 Blood Pressure Source [Right Arm] Automatic Cuff Blood Pressure Position [Right Arm] Sitting 02 Sat by Pulse Oximetry 100 Oxygen Delivery Method Room Air Orders (Tests/Meds): ORDERS Category Date Time Status Covid-19 Nasal PCR Sendout Melecio Stat Lab 08/18/20 10:40 Received [facility] [place] HPI - General Stated complaint: Covid test Time Seen by Provider: 08/18/20 11:02 Mode of Arrival: Ambulatory Source of Information: Patient Limitations: No Limitations Description of Symptoms (Recalled from Triage Doc. 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 tested positive so she come in with her daughter to get tested Denies any symptoms - Related Data Allergies Allergy/AdvReac Type Severity Reaction Status Date / Time No Known Allergies Allergy Verified 05/01/19 10:16 - Worker's Comp Is this a Worker's Comp case?: No [facility] History - Hepatitis A Screen Drug use history?: No High risk sexual behaviors?: No History of sexually transmitted infection?: No Currently employed?: No Childcare worker?: No Do you have indoor plumbing?: Yes Do you have electricity?: Yes Attestation statement:: This patient has been screened for Hepatitis A risk factors. I have reviewed the patient's past medical history: Yes Medical History: Denies:: Cancer, Diabetes Mellitus Type 1, Diabetes Mellitus Type 2, MRSA Other Surgeries: Yes: Appendectomy, Dilation and Curettage. No: Amputation: No Fractures: No - Social History Smoking Status: Never smoker Alcohol Intake: never Substance Use Type: denies use Occupational Status: other Housing: other Household Members: none Family Hx:: No significant family history ROS Obtained: Yes All systems reviewed & no additional complaints, Yes Systems reviewed as appropriate & no boom
[2020-08-18 11:07] VITALS: BP 118/74; PULSE 76; RESP 21; TEMP 36.9; O2SAT 100
[2020-08-19 15:51] LABS: Covid-19 Nasal PCR Sendout Lex Not Detected
== END 2020-08-18 11:08 | disposition home or self-care (01) ==
PROVIDERS: Emergency Provider Nurse Practitioner; PCP Emergency Medicine
DX: Z20.828 Contact with and (suspected) exposure to other viral communicable diseases (principal)
CPT/HCPCS: 99201; U0004

== ENCOUNTER 2020-10-15 07:44 | Emergency (ER) | payer MEDICAID, SELFPAY ==
[2020-10-15] VITALS (7 sets, daily range): BP systolic 120–153; BP diastolic 73–90; PULSE 63–78; RESP 16–18; TEMP 36.6–36.9; O2SAT 97–100; BMI 32.9
--- NOTE | 2020-10-15 07:45 | XR_ITS ---
PROCEDURE: XR CHEST 2V CLINICAL HISTORY: chest pain COMPARISON: CR CXR2V XR chest 2V from 12/20/2018 FINDINGS: The cardiomediastinal silhouette and pulmonary vascularity are within normal limits. The lungs are clear without infiltrates, suspicious nodules, or pleural effusions. No acute bony abnormalities. IMPRESSION: No acute findings. Dictated by: Nicolas Garvey MD 10/15/2020 08:59 Nicolas Garvey MD in [place] 10/15/2020 08:59
--- NOTE | 2020-10-15 07:47 | ECG_ITS ---
APPROVED REPORT Exam: Resting ECG HR:75 bpm ECG Measurements Heart Rate 75 AXES AR 138 P 42 QRSd 78 QRS 18 QT 398 T 26 QTc 444 Conclusion Normal sinus rhythm with sinus arrhythmia Normal ECG Electronically signed by : Wilner Watkins, 10/16/2020 18:08:53
--- NOTE | 2020-10-15 07:49 | PC.NURSE ---
getting records from [facility] at this time.
[2020-10-15 07:57] LABS: Microscopic, Urine URINE MICROSCOPIC (MICROSCOPIC)
[2020-10-15 08:02] LABS: Basophils % 0.3 % (0.1-2.0); Eosinophils # 0.1 K/mm3 (0.0-0.4); Eosinophils % 2.1 % (0.1-12.0); Hematocrit 35.7 % (37.0-47.0); Hemoglobin 11.8 g/dL (12.2-16.2); Lymphocytes # 2.5 K/mm3 (0.7-4.5); Mean Corpuscular Volume 84.8 fl (81-99); Mean Platelet Volume 8.2 fl (7.4-10.4); Monocytes # 0.4 K/mm3 (0.1-1.0); Monocytes % 6.5 % (1.7-9.3); Neutrophils # 3.6 K/mm3 (1.8-7.8); Neutrophils % 54.1 % (37.0-80.0); Platelet Count 321 K/mm3 (142-424); Red Blood Count 4.21 M/mm3 (4.20-5.40); Red Cell Distribution Width 14.3 % (11.5-17.5); White Blood Count 6.6 K/mm3 (4.8-10.8)
[2020-10-15 08:03] LABS: Appearance,Urine CLEAR (Clear); Bilirubin,Urine Negative (Negative); Blood, Urine 2+ (Negative); Color,Urine YELLOW (Yellow); Glucose,Urine (UA) Negative (Negative); Ketones,Urine Negative (Negative); Leukocyte Esterase,Urine TRACE (Negative); Nitrate,Urine Negative (Negative); PH,Urine 5.5 (5.0-8.5); Protein,Urine Negative (Negative); Specific Gravity, Urine >= 1.030 (1.005-1.030); Urobilinogen,Urine 0.2 EU/dl (0.2)
[2020-10-15 08:15] LABS: Urine Pregnancy, HCG Qual. Negative (Negative)
[2020-10-15 08:16] LABS: Amylase 43 U/L (30-110); Anion Gap 11.6 mEq/L (5-15); Blood Urea Nitrogen 9 mg/dl (7-17); Calcium 9.5 mg/dl (8.4-10.2); Carbon Dioxide 27 mmol/L (22.0-30.0); Chloride 104 mmol/L (98-107); Creatinine Clearance Estimated 168 mL/min (50-200); Estimated Glomerular Filt Rate 105 ml/min (>60); GFR (African American) 127 ML/MIN (>60); Glucose 104 mg/dl (74-100); Lipase 67 U/L (23-300); Potassium 3.6 mmoL/L (3.5-5.1); Sodium 139 mmol/L (136-145)
--- NOTE | 2020-10-15 08:25 | CA_ITS ---
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: Jami RCS, RVS Ht: 5 ft 3 in Wt: 186lbs BSA: 1.88 BP: 153/85 mmHg Indications: epigastric pain radiating to back, 4wk , hx-childhood murmur 2D Dimensions LVOT 1.92 cm (M/F) 1.5-2.5 M-Mode Dimensions RVDd 1.74 cm (0.9-2.6) LA Diam 3.03 cm (1.9-4.0) LVDd 4.96 cm (3.5-5.7) Ao Diam 2.76 cm (2.0-3.7) IVSd 1.01 cm (0.6-1.1) PWd 0.80 cm (0.6-1.1) EPSs 0.67 cm EDV (Teich) 116.10 mL LV Diastology E Decel Time 167.00 (160-240 msec) E/A Ratio 1.25 MED E' 16.30 (< 7 cm/sec) MED A' 8.40 cm/s E'/MED E' Ratio 4.29 (>14) LAT E' 19.50 (<10 cm/sec) LAT A' 6.20 cm/s E/LAT E' Ratio 3.58 (>14) Aortic Valve AO Peak GR. 7.60 mmHg Mitral Valve MV E Max Ryder. 70.00 (40-130 cm/s) MV A Velocity 56.00 (40-130 cm/s) E/A Ratio 1.25 MV Decel. Time 167.00 (160-240 ms) MV PHT 49.00 ms Pulmonary Valve PV Peak Velocity 94.00 (50-150 cm/s) WA End VMAX 152.00 cm/s Tricuspid Valve TR P. Velocity 228.00 cm/s RAP Estimate 10.00 mmHg RVSP 30.80 mmHg Left Ventricle Left atrium is normal size, left ventricle is normal size, there is no concentric left ventricular hypertrophy, visually estimated ejection fraction 55% with no regional wall motion abnormality. Diastolic parameters are within normal range. Right Ventricle Right atrium and right ventricle are normal size and contractility. Aortic Valve Aortic valve is grossly normal, there is no aortic stenosis or aortic insufficiency. Mitral Valve Mitral valve is grossly normal, there is trace mitral regurgitation. Tricuspid Valve Tricuspid valve grossly normal, there is trace tricuspid regurgitation. Tricuspid regurgitation jet velocity is inadequate for calculation of the right ventricular systolic pressure. Pulmonic Valve Pulmonic valve is poorly visualized. Great Vessels Aortic root is normal size. Pericardium No significant pericardial effusion noted. Conclusion 1. Normal left ventricular size, preserved left ventricular systolic function, visually estimated ejection fraction 55% with no regional wall motion abnormality, diastolic parameters are within normal range. 2. Trace mitral and tricuspid regurgitation. 3. No significant pericardial effusion noted. Electronically signed by : Serge Le, 10/15/2020 15:10:38
--- NOTE | 2020-10-15 08:29 | HMH.EDGENADL ---
ED Disposition Clinical Impression: GERD with esophagitis Qualifiers: Esophagitis bleeding: unspecified whether hemorrhage Qualified Code(s): K21.00 - Gastro-esophageal reflux disease with esophagitis, without bleeding Disposition: Home, Self-Care Condition on Discharge: Fair Instructions: DI for Esophagitis Additional Instructions: Reviewed labs and x-rays and they show the following: chest x-ray shows no acute findings; complete metabolic panel shows no acute findings; urine analysis shows no acute findings; troponin was negative x2; D dimer showed elevation of 1.[address] angiogram was done and it shows the following No Pulmonary embolism; mild thickening of the esophagus with a small amount of gas in the distal aspect of the esophagus which could be related to reflux with esophagitis ; EKG also showed no acute findings that showed normal sinus rhythm so did an echocardiogram and it did not show any adverse findings; Plan is to discharge patient home with prescription for Prilosec; this esophagitis is most likely secondary to the state Prescriptions: Omeprazole Magnesium [Prilosec Otc 20mg Tab] 20 mg PO DAILY 30 Days #30 tab Prescription Printed Referrals: PCPNo [Primary Care Provider] - Forms: Work/School Release Time of Disposition: 13:36 - Critical Care Critical Care Time: No Attestation: On 10/15/20, the high probability of a clinically significant, sudden or life threatening deterioration of the following system(s) required my full and direct attention, intervention and personal management. The time I documented below is in addition to time spent performing reported procedures but includes the following listed in this critical care notation. Medical Decision Making - Medical Records Medical records reviewed: Yes: I reviewed the patient's medical records. MR Comment: 20 year old pleasant female here with a complaint of epi gastric pain with left chest pain that goes into her back that started 2 days ago. She has had it a few times in the last fews days lasting for approx 10-15 minutes. This morning this pain woke her up and has lasted for a few hours. She is 3 weeks post and denies shortness of breath. Her delivery was vaginal with no complications and had been dc in 2 days after delivery. She is stable at this time. Reviewed patient's labs and x-rays and they show the following: chest x-ray shows no acute findings; complete metabolic panel shows no acute findings; urine analysis shows no acute findings troponin was negative x2; D dimer showed elevation of 1.[address] angiogram was done and it shows the following mild thickening of the esophagus with a small amount of gas in the distal aspect of the esophagus which could be related to reflux with esophagitis ; EKG also showed no acute findings that showed normal sinus rhythm so did an echocardiogram and it did not show any adverse findings; Plan is to discharge patient home with prescription for Prilosec; this esophagitis is most likely secondary to the state. - Rafa Inquiry Pt receiving controlled substance: No Vital Signs: 10/15/20 07:45 10/15/20 08:04 10/15/20 09:01 Temperature 98.4 F Temperature Source Oral Pulse Rate [Left Radial] 68 76 73 Respiratory Rate 18 Blood Pressure [Right Arm] 120/81 137/85 153/81 H Blood Pressure Mean [Right Arm] 94 102 105 Blood Pressure Source [Right Arm] Automatic Cuff Automatic Cuff Automatic Cuff Blood Pressure Position [Right Arm] Sitting Sitting Sitting 02 Sat by Pulse Oximetry 99 98 99 Oxygen Delivery Method Room Air Room Air Room Air 10/15/20 09:30 10/15/20 10:30 10/15/20 12:14 Temperature Temperature Source Pulse Rate [Left Radial] 78 70 63 Respiratory Rate Blood Pressure [Right Arm] 148/84 H 134/73 140/90 Blood Pressure Mean [Right Arm] 105 93 106 Blood Pressure Source [Right Arm] Automatic Cuff Automatic Cuff Automatic Cuff Blood Pressure Position [
[2020-10-15 08:31] LABS: Troponin I < 0.01 ng/ml (0.00-0.034)
[2020-10-15 08:41] LABS: Alanine Aminotransferase 30 U/L (12-78); Albumin Level 4.3 g/dl (3.5-5.0); Alkaline Phosphatase 96 U/L (38-126); Aspartate Amino Transferase 37 U/L (14-36); Bilirubin,Direct 0.2 mg/dl (0.0-0.4); Bilirubin,Indirect 0.2 mg/dL (0.0-0.9); Bilirubin,Total 0.4 mg/dl (0.2-1.3); Bilirubin,Unconjugated 0.2 mg/dL (0.0-1.1); Total Protein,Serum 7.8 g/dl (6.3-8.2)
[2020-10-15 08:46] LABS: D-Dimer 1.21 ug/mL (0.0-0.5)
[2020-10-15 08:52] LABS: NT Pro Brain Natriuretic Pep. 31.7 pg/mL (0-125)
--- NOTE | 2020-10-15 09:20 | CT_ITS ---
PROCEDURE: CT ANGIO CHEST CLINCIAL INDICATION: CHEST PAIN COMPARISON: No exams were available for comparison TECHNIQUE: IV Contrast: 70ML Isovue 370 Axial images obtained with sagittal and coronal reformats. All CT scans at the facility use one or more dose reduction, viz: automated exposure control, ma/kV adjustment per patient size (including targeted exams where dose is matched to indication, i.e. head), or iterative reconstruction technique. FINDINGS: No evidence of pulmonary embolus, aortic aneurysm, or aortic dissection. Soft tissue density is present in the anterior mediastinum consistent with residual thymic tissue. There is a small amount of gas in the distal esophagus and may be seen with reflux. There is a noncalcified 5 mm nodule in the right middle lobe anteriorly and an additional 4 mm nodule in the subpleural region of the right middle lobe more lateral. Mild thoracic scoliosis convex right. IMPRESSION: No evidence of pulmonary embolus. Least 2 noncalcified pulmonary nodules in right middle lobe 5 mm or less. 6-12 month follow-up may confirm stability. Mild thickening of the esophagus with a small amount of gas in the distal aspect of the esophagus which could be related to reflux with esophagitis. Dictated by: Nicolas Garvey MD 10/15/2020 12:03 Nicolas Garvey MD in [place] 10/15/2020 12:03
--- NOTE | 2020-10-15 09:23 | PC.NURSE ---
RADIOLOGY NOTIFIED OF CT CHEST
--- NOTE | 2020-10-15 10:28 | PC.NURSE ---
2nd call to radiology for ct chest
--- NOTE | 2020-10-15 11:06 | PC.NURSE ---
Pt with rad, v/s delayed.
[2020-10-15 11:53] LABS: Troponin I < 0.01 ng/ml (0.00-0.034)
== END 2020-10-15 13:47 | disposition home or self-care (01) ==
PROVIDERS: Emergency Provider Emergency Medicine
DX: K21.00 Gastro-esophageal reflux disease with esophagitis, without bleeding (principal); R07.89 Other chest pain
CPT/HCPCS: 71046; 71275; 80048; 80076; 81001; 81025; 82150; 83690; 83880; 84484; 85025; 85378; 93005; 93306; 96365; 99284; Q9967

== ENCOUNTER 2021-05-29 05:49 | Emergency (ER) | payer BC, SELFPAY ==
[2021-05-29 05:50] VITALS: BP 135/67; PULSE 77; RESP 17; O2SAT 97; BMI 34.3
[2021-05-29 05:57] VITALS: BP 135/67; PULSE 89; RESP 18; O2SAT 97
[2021-05-29 06:07] VITALS: BMI 34.3
--- NOTE | 2021-05-29 06:08 | CT_ITS ---
PROCEDURE INFORMATION: Exam: CT Abdomen And Pelvis With Contrast Exam date and time: 05/29/2021 6:08 AM Age: 21 years old Clinical indication: Abdominal pain; Generalized; Prior surgery; Surgery date: 6+ months; Surgery type: Cholecystectomy, appendectomy; Patient HX: Abdomen pain and distension for about 7 days. ; Additional info: Abd pain TECHNIQUE: Imaging protocol: Computed tomography of the abdomen and pelvis with contrast. Radiation optimization: All CT scans at this facility use at least one of these dose optimization techniques: automated exposure control; mA and/or kV adjustment per patient size (includes targeted exams where dose is matched to clinical indication); or iterative reconstruction. Contrast material: ISOVUE; Contrast volume: 370 ml; Contrast route: IV; COMPARISON: CT ABDOMEN PELVIS W CON 09/04/2019 5:18 AM FINDINGS: Liver: There is a diffuse decrease in hepatic parenchymal density, consistent with fatty infiltration. Gallbladder and bile ducts: There has been a cholecystectomy. There is no evidence of biliary ductal dilation. Pancreas: Normal. No ductal dilation. Spleen: Normal. No splenomegaly. Adrenal glands: Normal. No mass. Kidneys and ureters: Subcentimeter simple appearing cyst lower pole of the left kidney is stable since the prior study, no imaging follow recommended. Kidneys unremarkable. Stomach and bowel: Moderate amount of fecal material in the colon. Nonobstructive bowel gas pattern. Mild small bowel wall thickening in the left abdomen. No bowel obstruction. Appendix: There has been an appendectomy. Intraperitoneal space: Scant free fluid in the pelvis likely physiologic. Tubular bilateral adnexal fluid densities are unchanged since the prior study. Vasculature: Unremarkable. No abdominal aortic aneurysm. Lymph nodes: Unremarkable. No enlarged lymph nodes. Urinary bladder: Unremarkable as visualized. Reproductive: Unremarkable as visualized. Bones/joints: Unremarkable. No acute fracture. Soft tissues: Unremarkable. IMPRESSION: 1. Mild small bowel wall thickening in the left abdomen which may reflect enteritis. No bowel obstruction. 2. Tubular bilateral adnexal fluid densities are unchanged since the prior study of 2018. Recommend direct comparison with previous ultrasound studies of the pelvis if available, ultrasound evaluation could be obtained if there are no prior ultrasound imaging studies. Findings may represent ovarian cysts versus hydrosalpinx. 3. Hepatic steatosis.
[2021-05-29 06:18] LABS: Appearance,Urine CLEAR (Clear); Bilirubin,Urine Negative (Negative); Blood, Urine TRACE-I (Negative); Color,Urine YELLOW (Yellow); Glucose,Urine (UA) Negative (Negative); Ketones,Urine Negative (Negative); Leukocyte Esterase,Urine Negative (Negative); Microscopic, Urine URINE MICROSCOPIC (MICROSCOPIC); Nitrate,Urine Negative (Negative); Protein,Urine Negative (Negative); Specific Gravity, Urine 1.025 (1.005-1.030); Urobilinogen,Urine 0.2 EU/dl (0.2)
[2021-05-29 06:19] LABS: Basophils # 0.1 K/mm3 (0-0.2); Eosinophils # 0.1 K/mm3 (0.0-0.4); Eosinophils % 1.7 % (0.1-12.0); Hematocrit 41.3 % (37.0-47.0); Hemoglobin 13.5 g/dL (12.2-16.2); Lymphocytes # 3.2 K/mm3 (0.7-4.5); Lymphocytes % 45.1 % (10-50); Mean Corpuscular HGB Conc 32.7 g/dL (31.8-35.4); Mean Corpuscular Volume 91.9 fl (81-99); Mean Platelet Volume 8.8 fl (7.4-10.4); Monocytes # 0.4 K/mm3 (0.1-1.0); Monocytes % 5.5 % (1.7-9.3); Neutrophils # 3.3 K/mm3 (1.8-7.8); Neutrophils % 46.8 % (37.0-80.0); Platelet Count 353 K/mm3 (142-424); Red Cell Distribution Width 13.4 % (11.5-17.5)
[2021-05-29 06:20] LABS: Urine Pregnancy, HCG Qual. Negative (Negative)
[2021-05-29 06:26] LABS: Alanine Aminotransferase 26 U/L (12-78); Albumin Level 4.5 g/dl (3.5-5.0); Albumin/Globulin Ratio 1.3 (1.1-1.8); Alkaline Phosphatase 69 U/L (38-126); Amylase 58 U/L (30-110); Anion Gap 14.9 mEq/L (5-15); Aspartate Amino Transferase 29 U/L (14-36); Bilirubin,Total 0.3 mg/dl (0.2-1.3); Blood Urea Nitrogen 11 mg/dl (7-17); Carbon Dioxide 28 mmol/L (22.0-30.0); Chloride 102 mmol/L (98-107); Creatinine Clearance Estimated 209 mL/min (50-200); Estimated Glomerular Filt Rate 124 ml/min (>60); GFR (African American) 150 ML/MIN (>60); Globulin 3.5 g/dL (1.3-3.2); Glucose 92 mg/dl (74-100); Lipase 82 U/L (23-300); Potassium 3.9 mmoL/L (3.5-5.1); Sodium 141 mmol/L (136-145)
[2021-05-29 06:32] LABS: C-Reactive Protein 2.6 mg/L (0-4)
[2021-05-29 06:35] LABS: Amorphous Sediment,Urine 1+ /lpf
[2021-05-29 06:43] LABS: Procalcitonin < 0.030 ng/mL (0.0-2.0)
[2021-05-29 06:47] LABS: Erythrocyte Sedimentation Rate 23 mm/hr (0-20)
[2021-05-29 07:25] VITALS: BP 104/63; PULSE 65; RESP 16; O2SAT 98
--- NOTE | 2021-05-29 07:29 | HMH.EDNVD ---
ED Disposition Clinical Impression: Abdominal pain Qualifiers: Abdominal location: upper abdomen, unspecified Qualified Code(s): R10.10 - Upper abdominal pain, unspecified Disposition: Home, Self-Care Condition on Discharge: Good Instructions: DI for Acute Abdominal Pain Additional Instructions: please see pcp next week for eval Referrals: Vishal Munson MD [Primary Care Provider] - - Critical Care Critical Care Time: No Attestation: On 05/29/21, the high probability of a clinically significant, sudden or life threatening deterioration of the following system(s) required my full and direct attention, intervention and personal management. The time I documented below is in addition to time spent performing reported procedures but includes the following listed in this critical care notation. Medical Decision Making - Medical Records Medical records reviewed: Yes: I reviewed the patient's medical records. - Rafa Inquiry Pt receiving controlled substance: No Vital Signs: 05/29/21 05:50 05/29/21 05:57 05/29/21 07:25 Temperature Source Oral Pulse Rate 89 65 Pulse Rate [Right] 77 Respiratory Rate 17 18 16 Blood Pressure 135/67 104/63 L Blood Pressure [Right Arm] 135/67 Blood Pressure Mean 107 Blood Pressure Mean [Right Arm] 89 Blood Pressure Source [Right Arm] Automatic Cuff Blood Pressure Position Sitting 02 Sat by Pulse Oximetry 97 97 98 Oxygen Delivery Method Room Air Room Air - Lab Data Lab results reviewed: Yes: I reviewed the patient's lab results. Lab Results 05/29/21 05:58: WBC 7.0, RBC 4.50, Hgb 13.5, Hct 41.3, MCV 91.9, MCH 30.0, MCHC 32.7, RDW 13.4, Plt Count 353, MPV 8.8, Neut % (Auto) 46.8, Lymph % (Auto) 45.1, Clare % (Auto) 5.5, Eos % (Auto) 1.7, Baso % (Auto) 1.0, Neut # (Auto) 3.3, Lymph # (Auto) 3.2, Clare # (Auto) 0.4, Eos # (Auto) 0.1, Baso # (Auto) 0.1, ESR 23 H 05/29/21 05:58: Sodium 141, Potassium 3.9, Chloride 102, Carbon Dioxide 28, Anion Gap 14.9, BUN 11, Creatinine 0.60, Estimated Creat Clear 209, Estimated GFR 124, Est GFR ( Amer) 150, Glucose 92, Calcium 9.0, Total Bilirubin 0.3, AST 29, ALT 26, Alkaline Phosphatase 69, C-Reactive Protein 2.6, Total Protein 8.0, Albumin 4.5, Globulin 3.5 H, Albumin/Globulin Ratio 1.3, Amylase 58, Lipase 82, Procalcitonin < 0.030 05/29/21 06:04: Urine Color Yellow, Urine Appearance Clear, Urine pH 6.0, Ur Specific [place] 1.025, Urine Protein Negative, Urine Glucose (UA) Negative, Urine Ketones Negative, Urine Blood Trace-i, Urine Nitrate Negative, Urine Bilirubin Negative, Urine Urobilinogen 0.2, Ur Leukocyte Esterase Negative, Urine RBC 5-10, Urine WBC None, Ur Squamous Epith Cells 5-10, Amorphous Sediment 1+, Urine Bacteria None 05/29/21 06:04: Urine HCG, Qual Negative Result diagrams: 05/29/21 05:58 05/29/21 05:58 Orders (Tests/Meds): ED MEDICATIONS Generic Name Dose Route Start Last Admin Trade Name Freq PRN Reason Stop Dose Admin Sodium Chloride 1,000 mls @ 999 mls/hr 05/29/21 06:15 05/29/21 06:34 Sod Chlor 0.9% 1000ml Bag IV 05/29/21 07:15 999 mls/hr .Q1H1M STEFAN Administration Sodium Chloride 8 ml 05/29/21 06:09 Sodium Chloride 0.9% 10ml Vial IV 06/28/21 06:08 NEEDED PRN dilute pepcid Discontinued Medications Generic Name Dose Route Start Last Admin Trade Name Freq PRN Reason Stop Dose Admin Famotidine 20 mg 05/29/21 06:09 05/29/21 06:33 Famotidine 20mg/2ml Vial IV 05/29/21 06:10 20 mg ONCE ONE Administration Iopamidol 75 ml 05/29/21 06:52 05/29/21 06:53 Iopamidol-370 (76%);100ml Bottle IV 05/29/21 06:53 75 ml ONCE ONE Administration Ketorolac Tromethamine 30 mg 05/29/21 06:09 05/29/21 06:33 Ketorolac 30mg/Ml Vial IV 05/29/21 06:10 30 mg ONCE ONE Administration Metoclopramide HCl 10 mg 05/29/21 06:09 05/29/21 06:34 Metoclopramide Hcl 10mg/2ml Vial IVP 05/29/21 06:10 10 mg ONCE ONE Administration Ondansetron HCl 4 mg
[2021-05-29 08:13] VITALS: BP 105/68; PULSE 78; RESP 16; TEMP 36.6; O2SAT 98
== END 2021-05-29 08:14 | disposition home or self-care (01) ==
PROVIDERS: Emergency Provider Emergency Medicine; PCP Emergency Medicine
DX: R10.13 Epigastric pain (principal); R11.0 Nausea
CPT/HCPCS: 74177; 80053; 81001; 81025; 82150; 83690; 84145; 85025; 85651; 86140; 96365; 96375; 99283; J2405; Q9967

== ENCOUNTER 2021-09-13 09:43 | Emergency (ER) | payer BC, SELFPAY ==
[2021-09-13 11:00] VITALS: BP 126/79; PULSE 76; RESP 16; TEMP 36.8; O2SAT 98; BMI 32.2
[2021-09-13 11:37] VITALS: BP 126/79; PULSE 76; RESP 16; TEMP 36.8; O2SAT 98
--- NOTE | 2021-09-13 11:37 | HMH.EDUTC ---
[facility] [place] Disposition Clinical Impression: Cellulitis Qualifiers: Site of cellulitis: unspecified site Qualified Code(s): L03.90 - Cellulitis, unspecified Disposition: Home, Self-Care Condition on Discharge: Good Instructions: Cellulitis, DI for Cellulitis -- Adult, Cephalexin Additional Instructions: *Start antibiotic(s) immediately and be sure to take as ordered for the FULL length of time although you may be feeling better or start to see improvement in the next 24-48 hours *Monitor closely. Outlined redness so that you can monitor easier. Follow up immediately for new or worsening symptoms including but not limited to redness, swelling, streaking from site fever or chills. *Warm compress 15 minutes 3-4 times day *Never squeeze or pop these on your own. Seek immediate medical attention next time this occurs *Monitor Temp. Tylenol every 4 hours as needed and ibuprofen every 6 hours as needed (as long as your primary care doctor has told you that it is ok to take both. For fever, aches, pain. ER if no less that 101 despite Tylenol and ibuprofen Follow up with your family doctor/primary care physician in the next 48-72 hours if no improvement Prescriptions: clindamycin HCL [Clindamycin HCl] 300 mg PO Q8H 7 Days #21 cap Transmission Status: Pending to [facility] Mupirocin Calcium [Mupirocin 2% Cream 15gm] 1 applicatio TP Q8H 10 Days #15 gm Transmission Status: Pending to [facility] Referrals: Vishal Munson MD [Primary Care Provider] - As needed Time of Disposition: 11:56 Medical Decision Making - Rafa Inquiry Pt receiving controlled substance: No Rafa was queried for this patient: No Vital Signs: 09/13/21 11:00 Temperature 98.3 F Temperature Source Oral Pulse Rate [Right Brachial] 76 Respiratory Rate 16 Blood Pressure [Right Arm] 126/79 Blood Pressure Mean [Right Arm] 94 Blood Pressure Source [Right Arm] Automatic Cuff Blood Pressure Position [Right Arm] Sitting 02 Sat by Pulse Oximetry 98 Oxygen Delivery Method Room Air [facility] [place] HPI - General Stated complaint: cyst on stomach Time Seen by Provider: 09/13/21 11:38 Mode of Arrival: Ambulatory Source of Information: Patient Limitations: No Limitations Description of Symptoms (Recalled from Triage Doc. by RN): PATIENT C/O BUMP ON LOWER LEFT SIDE OF ABDOMEN X 1 WEEK HEENT Symptoms (Recalled from RN notes): No Resp Symptoms (Recalled from RN notes): No Skin Symptoms (Recalled from RN notes): No MS Symptoms (Recalled from RN notes): No Functional Status (Recalled from RN notes): WNL - History of Present Illness Provider Complaint: Patient states that she shaves the hair on her lower abdomen States that she noticed she had a little bump there about a week ago and she poked it trying to get something out of it States that nothing come out of it States that now it is red and warm to the touch so she came in to get checked - Related Data Home Medications Medication Instructions Recorded Confirmed lamoTRIgine [Lamictal] 100 mg PO DAILY 09/13/21 09/13/21 Previous Rx's Medication Instructions Recorded Mupirocin Calcium [Mupirocin 2% 1 applicatio TP Q8H 10 Days #15 gm 09/13/21 Cream 15gm] clindamycin HCL [Clindamycin HCl] 300 mg PO Q8H 7 Days #21 cap 09/13/21 Allergies Allergy/AdvReac Type Severity Reaction Status Date / Time No Known Allergies Allergy Verified 10/23/20 13:44 - Worker's Comp Is this a Worker's Comp case?: No [facility] History - Hepatitis A Screen Drug use history?: No High risk sexual behaviors?: No History of sexually transmitted infection?: No Currently employed?: No Childcare worker?: No Do you have indoor plumbing?: Yes Do you have electricity?: Yes Attestation statement:: This patient has been screened for Hepatitis A risk factors. I have reviewed the patient's past medical history: Yes Medical History: Denies:: Cancer, Diabetes Mellitus Type 1, Diabetes Mellitus Type 2, MRSA Other Surger
== END 2021-09-13 11:50 | disposition home or self-care (01) ==
PROVIDERS: Emergency Provider Nurse Practitioner; PCP Emergency Medicine
DX: L03.311 Cellulitis of abdominal wall (principal)
CPT/HCPCS: 99202; G0463

== ENCOUNTER 2021-09-25 12:36 | Emergency (ER) | payer MEDICAID, SELFPAY ==
[2021-09-25 13:38] VITALS: BP 143/82; PULSE 81; RESP 20; TEMP 36.9; O2SAT 95; BMI 32.5
[2021-09-25 13:43] LABS: UTC Influenza A Antigen Negative (Negative)
--- NOTE | 2021-09-25 13:43 | HMH.EDUTC ---
[facility] [place] Clinical Impression: Exposure to COVID-19 virus Sinusitis Qualifiers: Sinusitis location: unspecified location Chronicity: acute Recurrence: non-recurrent Qualified Code(s): J01.90 - Acute sinusitis, unspecified Disposition: Home, Self-Care Condition on Discharge: Good Instructions: DI for Sinusitis, Preventing the Spread of Coronavirus Discharge Instructions, DI for COVID-19 (Suspected or Confirmed ) Additional Instructions: Drink plenty of fluids. Take tylenol or ibuprofen for pain or fever. Take the medications as directed. Follow up with your regular doctor. GO TO THE ER FOR ANY WORSENING SYMPTOMS Quarantine until you know the results of your covid-19 test. If it is positive, the health department should call you and give you further instructions about your length of Quarantine and other things. Notify your school or workplace of your results and follow their instructions regarding return to work/school. Prescriptions: Brompheniramine/Pseudoephed/Dm [Bromfed Dm Cough Syrup] 5 ml PO Q6HP PRN #240 ml PRN Reason: Cough [facility] methylPREDNISolone [Medrol] 4 mg PO DIRECTED 6 Days #21 packet Transmission Status: [facility] Azithromycin [Z-Saul 250mg Tab*] 250 mg PO UD DOSE PK #6 tab Transmission Status: [facility] Referrals: Vishal Munson MD [Primary Care Provider] - Time of Disposition: 14:24 Medical Decision Making - Medical Records Medical records reviewed: No: I reviewed the patient's medical records. - Rafa Inquiry Pt receiving controlled substance: No Vital Signs: 09/25/21 13:38 Temperature 98.5 F Temperature Source Oral Pulse Rate [Left] 81 Respiratory Rate 20 Blood Pressure [Right Arm] 143/82 H Blood Pressure Mean [Right Arm] 102 02 Sat by Pulse Oximetry 95 - Lab Data Lab results reviewed: Yes: I reviewed the patient's lab results. Lab Results 09/25/21 13:36: Influenza Type A Ag Negative, Influenza Type B Ag Negative [facility] [place] - General Stated complaint: new loss of taste/smell,headache Time Seen by Provider: 09/25/21 13:43 Mode of Arrival: Ambulatory Source of Information: Patient Limitations: No Limitations Description of Symptoms (Recalled from Triage Doc. by RN): pt c/o a FLORES, nausea, nasal drainage/congestion, myalgia, fever, and difficulty catching her breathe at times. this has been ongoing since 09/21. pt states she had the control bar placed in her arm this day. HEENT Symptoms (Recalled from RN notes): Yes Resp Symptoms (Recalled from RN notes): Yes Skin Symptoms (Recalled from RN notes): No MS Symptoms (Recalled from RN notes): No Functional Status (Recalled from RN notes): wnl - History of Present Illness Provider Complaint: She states that for the past 2 days she has had sinus congestion, a nonproductive cough, and she has felt bad. She has been vaccinated against covid-19. She hasnot had a flu shot. - Related Data Home Medications Medication Instructions Recorded Confirmed lamoTRIgine [Lamictal] 100 mg PO DAILY 09/13/21 09/13/21 Previous Rx's Medication Instructions Recorded Mupirocin Calcium [Mupirocin 2% 1 applicatio TP Q8H 10 Days #15 gm 09/13/21 Cream 15gm] clindamycin HCL [Clindamycin HCl] 300 mg PO Q8H 7 Days #21 cap 09/13/21 Azithromycin [Z-Saul 250mg Tab*] 250 mg PO UD DOSE PK #6 tab 09/25/21 Brompheniramine/Pseudoephed/Dm 5 ml PO Q6HP PRN #240 ml 09/25/21 [Bromfed Dm Cough Syrup] methylPREDNISolone [Medrol] 4 mg PO DIRECTED 6 Days #21 09/25/21 packet Allergies Allergy/AdvReac Type Severity Reaction Status Date / Time No Known Allergies Allergy Verified 10/23/20 13:44 - Worker's Comp Is this a Worker's Comp case?: No [facility] History - Hepatitis A Screen Drug use history?: No High risk sexual behaviors?: No History of sexually transmitted infection?: No Currently employed?: No C
[2021-09-25 13:44] LABS: UTC Influenza B Antigen Negative (Negative)
[2021-09-25 14:37] VITALS: BP 143/82; PULSE 81; RESP 20; TEMP 36.9
== END 2021-09-25 14:38 | disposition home or self-care (01) ==
PROVIDERS: Emergency Provider Nurse Practitioner Family; PCP Emergency Medicine
DX: U07.1 COVID-19 (principal); J01.90 Acute sinusitis, unspecified
CPT/HCPCS: 87804; 99202; C9803; G0463; U0003; U0005

== ENCOUNTER 2021-11-27 10:45 | Emergency (ER) | payer MEDICAID, SELFPAY ==
[2021-11-27 11:30] VITALS: BP 140/75; PULSE 82; RESP 18; TEMP 37; O2SAT 97; BMI 28.6
--- NOTE | 2021-11-27 11:39 | HMH.EDUTC ---
[facility] [place] Disposition Clinical Impression: Dental disorder Vomiting Qualifiers: Vomiting type: unspecified Nausea presence: with nausea Qualified Code(s): R11.2 - Nausea with vomiting, unspecified Disposition: Home, Self-Care Condition on Discharge: Good Instructions: DI for Vomiting -- Adult Additional Instructions: stop clindamycin salt water garggles q4 prn Monitor temperature. Seek treatment if fever develops. Follow-up immediately if new or worse symptoms worsen or no noticeable improvement over 48 hours. Increase fluids such as water, Gatorade, Powerade, juice or Pedialyte with limited formula/dietary in children No food is okay as long as you are drinking. Once ready to eat start bland such as bananas, rice, applesauce, toast. Contagious until no diarrhea, vomiting, fever times 48 hours without medication Avoid antidiarrheals unless told otherwise. Best to let the virus run its course. Follow-up immediately for new or worsening symptoms or no noticeable improvement over the next 48 hours. Prescriptions: Amoxicillin [Amoxicillin 500mg Tab] 500 mg PO BID 10 Days #20 tab Transmission Status: Pending to [facility] Referrals: Vishal Munson MD [Primary Care Provider] - Time of Disposition: 11:44 Medical Decision Making - Rafa Inquiry Pt receiving controlled substance: No [facility] [place] HPI - General Chief complaint: Urgent [facility] Stated complaint: vomiting, fever Time Seen by Provider: 11/27/21 11:39 Mode of Arrival: Ambulatory Source of Information: Patient Limitations: No Limitations - History of Present Illness Provider Complaint: 21 yr old female presnets for vomiting.. pt states she had dental work done this week and later that day her face was swollen and gums sore. was seen by denitist again and told they did not see anything. pt states she started taking clindamycn she had and then the swelling improved but she started having vomiting. - Related Data Home Medications Medication Instructions Recorded Confirmed lamoTRIgine [Lamictal] 100 mg PO DAILY 09/13/21 09/13/21 Previous Rx's Medication Instructions Recorded Mupirocin Calcium [Mupirocin 2% 1 applicatio TP Q8H 10 Days #15 gm 09/13/21 Cream 15gm] clindamycin HCL [Clindamycin HCl] 300 mg PO Q8H 7 Days #21 cap 09/13/21 Azithromycin [Z-Saul 250mg Tab*] 250 mg PO UD DOSE PK #6 tab 09/25/21 Brompheniramine/Pseudoephed/Dm 5 ml PO Q6HP PRN #240 ml 09/25/21 [Bromfed Dm Cough Syrup] methylPREDNISolone [Medrol] 4 mg PO DIRECTED 6 Days #21 09/25/21 packet Amoxicillin [Amoxicillin 500mg Tab] 500 mg PO BID 10 Days #20 tab 11/27/21 Allergies Allergy/AdvReac Type Severity Reaction Status Date / Time No Known Allergies Allergy Verified 10/23/20 13:44 [facility] History - Hepatitis A Screen Attestation statement:: This patient has been screened for Hepatitis A risk factors. I have reviewed the patient's past medical history: Yes Medical History: Denies:: Cancer, Diabetes Mellitus Type 1, Diabetes Mellitus Type 2, MRSA Other Surgeries: Yes: Appendectomy, Dilation and Curettage. No: Amputation: No Fractures: No - Social History Smoking Status: Never smoker Alcohol Intake: never Substance Use Type: denies use Occupational Status: other Housing: other Household Members: none Family Hx:: No significant family history ROS Obtained: Yes Systems reviewed as appropriate & no additional complaints - Constitutional Constitutional: Reports system reviewed and no additional complaints, except as docu, Denies body ache, Denies fatigue, Denies fever(s) - Eyes Eyes: Reports system reviewed and no additional complaints, except as docu, Denies blurry vision - ENT Ears, Nose, Mouth, and Throat: Reports system reviewed and no additional complaints, except as docu, Reports as per HPI, Denies sore throat - Cardiovascular Cardiovascular: Reports system reviewed and no additional complaints, except as docu, Denies ches
[2021-11-27 11:44] VITALS: BP 140/75; PULSE 82; RESP 18; TEMP 37; O2SAT 97
== END 2021-11-27 11:49 | disposition home or self-care (01) ==
PROVIDERS: Emergency Provider Nurse Practitioner Family; PCP Emergency Medicine
DX: R11.2 Nausea with vomiting, unspecified (principal); R50.9 Fever, unspecified; Z79.899 Other long term (current) drug therapy
CPT/HCPCS: 99213; G0463

== ENCOUNTER 2021-12-03 23:15 | Emergency (ER) | payer MEDICAID, SELFPAY ==
[2021-12-03 23:18] VITALS: BP 145/89; PULSE 98; RESP 16; TEMP 37; O2SAT 98; BMI 33.5
[2021-12-03 23:37] LABS: Microscopic, Urine URINE MICROSCOPIC (MICROSCOPIC)
[2021-12-03 23:42] LABS: Appearance,Urine SL CLOUDY (Clear); Bilirubin,Urine Negative (Negative); Blood, Urine 3+ (Negative); Color,Urine YELLOW (Yellow); Glucose,Urine (UA) Negative (Negative); Ketones,Urine Negative (Negative); Leukocyte Esterase,Urine Negative (Negative); Nitrate,Urine Negative (Negative); Protein,Urine Negative (Negative); Specific Gravity, Urine >= 1.030 (1.005-1.030); Urobilinogen,Urine 0.2 EU/dl (0.2)
[2021-12-03 23:45] LABS: Urine Pregnancy, HCG Qual. Negative (Negative)
[2021-12-03 23:48] LABS: Bacteria,Urine Trace /lpf; RBC,Urine 20-50 #/hpf (0-3)
--- NOTE | 2021-12-03 23:48 | PC.NURSE ---
Medical release signed by pt to collect record from [facility] ER visit on 12/02/21. Faxed to [facility] @ [phone].
--- NOTE | 2021-12-03 23:53 | PC.NURSE ---
Confirmation report received that fax was received.
[2021-12-04] VITALS: BP 112/72; PULSE 78; O2SAT 97
[2021-12-04 00:15] LABS: Basophils # 0.1 K/mm3 (0-0.2); Basophils % 0.6 % (0.1-2.0); Eosinophils % 0.4 % (0.1-12.0); Hematocrit 39.8 % (37.0-47.0); Hemoglobin 13.1 g/dL (12.2-16.2); Lymphocytes # 1.2 K/mm3 (0.7-4.5); Lymphocytes % 10.3 % (10-50); Mean Corpuscular HGB Conc 32.8 g/dL (31.8-35.4); Mean Corpuscular Hemoglobin 30.3 pg (27.0-31.2); Mean Corpuscular Volume 92.2 fl (81-99); Mean Platelet Volume 8.2 fl (7.4-10.4); Monocytes # 0.5 K/mm3 (0.1-1.0); Monocytes % 4.2 % (1.7-9.3); Neutrophils # 9.5 K/mm3 (1.8-7.8); Neutrophils % 84.5 % (37.0-80.0); Platelet Count 386 K/mm3 (142-424); Red Blood Count 4.31 M/mm3 (4.20-5.40); Red Cell Distribution Width 13.8 % (11.5-17.5); White Blood Count 11.2 K/mm3 (4.8-10.8)
[2021-12-04 00:18] LABS: Chloride 102 mmol/L (98-107); Potassium 3.8 mmoL/L (3.5-5.1); Sodium 136 mmol/L (136-145)
[2021-12-04 00:20] LABS: Alanine Aminotransferase 25 U/L (12-78); Alkaline Phosphatase 73 U/L (38-126); Aspartate Amino Transferase 25 U/L (14-36); Bilirubin,Total 0.3 mg/dl (0.2-1.3); Blood Urea Nitrogen 11 mg/dl (7-17); Creatinine Clearance Estimated 153 mL/min (50-200); Estimated Glomerular Filt Rate 89 ml/min (>60); GFR (African American) 108 ML/MIN (>60)
[2021-12-04 00:21] LABS: Albumin Level 4.8 g/dl (3.5-5.0); Albumin/Globulin Ratio 1.4 (1.1-1.8); Anion Gap 11.8 mEq/L (5-15); Carbon Dioxide 26 mmol/L (22.0-30.0); Globulin 3.4 g/dL (1.3-3.2); Glucose 106 mg/dl (74-100); Lipase 90 U/L (23-300); Total Protein,Serum 8.2 g/dl (6.3-8.2)
--- NOTE | 2021-12-04 00:24 | HMH.EDGENADL ---
ED Disposition Clinical Impression: Pyelonephritis Disposition: Home, Self-Care Condition on Discharge: Good Instructions: DI for Kidney Infection Additional Instructions: Follow up with primary care within two days for reevaluation. Stop the amoxicillin and take the cefdinir and recommend the probiotics for GI support given the recent antibiotics. Prescriptions: Cefdinir [Omnicef 300mg Capsule] 300 mg PO BID 10 Days #20 cap Transmission Status: Pending to [facility] L.acidoph,Paracasei, B.lactis [Probiotic] 1 each PO BID 30 Days #60 cap Transmission Status: Pending to [facility] Ondansetron [Zofran 4mg ODT] 4 mg PO TIDP PRN 3 Days #9 tab PRN Reason: Nausea Transmission Status: Pending to [facility] Referrals: Vishal Munson MD [Primary Care Provider] - Time of Disposition: 00:30 - Critical Care Critical Care Time: No Attestation: On 12/03/21, the high probability of a clinically significant, sudden or life threatening deterioration of the following system(s) required my full and direct attention, intervention and personal management. The time I documented below is in addition to time spent performing reported procedures but includes the following listed in this critical care notation. Medical Decision Making - Medical Records Medical records reviewed: Yes: I reviewed the patient's medical records. - Rafa Inquiry Pt receiving controlled substance: No Vital Signs: 12/03/21 23:18 12/04/21 00:00 Temperature 98.6 F Temperature Source Oral Pulse Rate 78 Pulse Rate [Right Radial] 98 H Respiratory Rate 16 Blood Pressure 112/72 Blood Pressure [Right Arm] 145/89 H Blood Pressure Mean 84 Blood Pressure Mean [Right Arm] 107 Blood Pressure Source [Right Arm] Automatic Cuff Blood Pressure Position [Right Arm] Sitting 02 Sat by Pulse Oximetry 98 97 Oxygen Delivery Method Room Air - Lab Data Lab Results 12/03/21 23:25: Urine Color Yellow, Urine Appearance Sl cloudy, Urine pH 6.0, Ur Specific [place] >= 1.030, Urine Protein Negative, Urine Glucose (UA) Negative, Urine Ketones Negative, Urine Blood 3+, Urine Nitrate Negative, Urine Bilirubin Negative, Urine Urobilinogen 0.2, Ur Leukocyte Esterase Negative, Urine RBC 20-50, Urine WBC 3-5, Ur Squamous Epith Cells 3-5, Urine Bacteria Trace 12/03/21 23:25: Urine HCG, Qual Negative 12/04/21 00:05: WBC 11.2 H, RBC 4.31, Hgb 13.1, Hct 39.8, MCV 92.2, MCH 30.3, MCHC 32.8, RDW 13.8, Plt Count 386, MPV 8.2, Neut % (Auto) 84.5 H, Lymph % (Auto) 10.3, [place] % (Auto) 4.2, Eos % (Auto) 0.4, Baso % (Auto) 0.6, Neut # (Auto) 9.5 H, Lymph # (Auto) 1.2, [place] # (Auto) 0.5, Eos # (Auto) 0.0, Baso # (Auto) 0.1 Result diagrams: 12/04/21 00:05 Orders (Tests/Meds): ED MEDICATIONS Generic Name Dose Route Start Last Admin Trade Name Freq PRN Reason Stop Dose Admin Sodium Chloride 1,000 mls @ 999 mls/hr 12/03/21 23:45 12/03/21 23:50 Sod Chlor 0.9% 1000ml Bag IV 12/04/21 00:45 999 mls/hr .Q1H1M STEFAN Administration Discontinued Medications Generic Name Dose Route Start Last Admin Trade Name Freq PRN Reason Stop Dose Admin Dicyclomine HCl 20 mg 12/03/21 23:33 12/03/21 23:49 Dicyclomine 10mg Capsule PO 12/03/21 23:34 20 mg ONCE ONE Administration Ketorolac Tromethamine 15 mg 12/03/21 23:33 12/03/21 23:50 Ketorolac 30mg/Ml Vial IV 12/03/21 23:34 15 mg ONCE ONE Administration Ondansetron HCl 4 mg 12/03/21 23:33 12/03/21 23:50 Ondansetron 4mg/2ml Vial IV 12/03/21 23:34 4 mg ONCE ONE Administration Simethicone 160 mg 12/03/21 23:33 12/03/21 23:49 Simethicone 80mg Chewable Tablet PO 12/03/21 23:34 160 mg ONCE ONE Administration ORDERS Category Date Time Status CMP [Comprehensive Metabolic Panel] Stat Lab 12/03/21 00:05 Received Lipase Stat Lab 12/03/21 00:05 Received Medical Decision Narrative: 21-year-old female who presents with left flank p
[2021-12-04 00:39] VITALS: BP 107/71; PULSE 84; RESP 16; TEMP 36.6; O2SAT 99
== END 2021-12-04 00:52 | disposition home or self-care (01) ==
PROVIDERS: Emergency Provider Student in an Organized Health Care Education/Training Program; PCP Emergency Medicine
DX: N12 Tubulo-interstitial nephritis, not specified as acute or chronic (principal)
CPT/HCPCS: 80053; 81001; 81025; 83690; 85025; 96365; 96375; 99284; J2405

== ENCOUNTER 2022-12-12 20:42 | Emergency (ER) | payer MEDICAID, SELFPAY ==
[2022-12-12 20:43] VITALS: BP 148/84; PULSE 112; RESP 17; TEMP 37.6; O2SAT 97
[2022-12-12 21:08] LABS: Basophils % 0.3 % (0.1-2.0); Eosinophils # 0.1 K/mm3 (0.0-0.4); Eosinophils % 1.1 % (0.1-12.0); Hemoglobin 13.9 g/dL (12.2-16.2); Lymphocytes # 0.7 K/mm3 (0.7-4.5); Lymphocytes % 5.7 % (10-50); Mean Corpuscular HGB Conc 32.2 g/dL (31.8-35.4); Mean Corpuscular Hemoglobin 29.2 pg (27.0-31.2); Mean Corpuscular Volume 90.7 fl (81-99); Mean Platelet Volume 8.1 fl (7.4-10.4); Monocytes # 0.4 K/mm3 (0.1-1.0); Monocytes % 3.1 % (1.7-9.3); Neutrophils # 10.7 K/mm3 (1.8-7.8); Neutrophils % 89.8 % (37.0-80.0); Platelet Count 357 K/mm3 (142-424); Red Blood Count 4.75 M/mm3 (4.20-5.40); Red Cell Distribution Width 13.3 % (11.5-17.5); White Blood Count 11.9 K/mm3 (4.8-10.8)
[2022-12-12 21:11] LABS: Chloride 102 mmol/L (98-107); MANUAL DIFFERENTIAL MANUAL DIFFERENTIAL (MANUAL DIFF); Potassium 4.3 mmoL/L (3.5-5.1); Sodium 138 mmol/L (136-145)
[2022-12-12 21:11] LABS: Urine Pregnancy, HCG Qual. Negative (Negative)
[2022-12-12 21:13] LABS: Blood Urea Nitrogen 16 mg/dl (7-17); Creatinine Clearance Estimated 155 mL/min (50-200); Estimated Glomerular Filt Rate 103 ml/min (>60); GFR (African American) 124 ML/MIN (>60)
[2022-12-12 21:14] LABS: Alanine Aminotransferase 23 U/L (12-78); Albumin Level 4.7 g/dl (3.5-5.0); Albumin/Globulin Ratio 1.2 (1.1-1.8); Alkaline Phosphatase 82 U/L (38-126); Anion Gap 11.3 mEq/L (5-15); Aspartate Amino Transferase 28 U/L (14-36); Bilirubin,Total 0.8 mg/dl (0.2-1.3); Carbon Dioxide 29 mmol/L (22.0-30.0); Globulin 3.8 g/dL (1.3-3.2); Glucose 102 mg/dl (74-100); Lipase 173 U/L (23-300); Total Protein,Serum 8.5 g/dl (6.3-8.2)
[2022-12-12 21:30] VITALS: BP 131/80; PULSE 115; RESP 18; O2SAT 97
[2022-12-12 21:52] LABS: Eosinophils % 1 % (0-3); Lymphocytes % 10 % (10-50); Monocytes % 1 % (2-9); Neutrophils % 88 % (42-76); Total Cells Counted 100
[2022-12-12 21:53] LABS: Platelet Estimate Normal; Stomatocytes 1+
--- NOTE | 2022-12-12 21:55 | PC.NURSE ---
Rounded on patient, patient helped with needs voiced at this time.
[2022-12-12 22:00] VITALS: BP 133/82; PULSE 111; RESP 20; O2SAT 96
--- NOTE | 2022-12-12 22:09 | HMH.EDABDPAI ---
Discharge Plan Disposition Patient Disposition: Home, Self-Care Prescriptions Prescriptions: New ondansetron HCl 4 mg Tablet 4 mg PO Q8H PRN (Reason: Nausea) Qty: 14 0RF No Action lamotrigine 100 MG tablet 100 mg PO DAILY hydroxyzine pamoate 25 MG capsule 25 mg PO BIDP PRN (Reason: Anxiety) amoxicillin 500 MG tablet 500 mg PO BID ondansetron 4 MG tablet,disintegrating 4 mg PO TIDP PRN (Reason: Nausea) 3 Days Qty: 9 0RF cefdinir 300 MG capsule 300 mg PO BID 10 Days Qty: 20 0RF L.acidoph, paracasei,B. lactis 1 EACH capsule 1 each PO BID 30 Days Qty: 60 0RF Referrals Follow up/Referrals: Vishal Munson MD [Primary Care Provider] - See instructions Clinical Impressions Clinical Impression: Gastroenteritis Instructions Patient Instructions: DI for Vomiting -- Adult Discharge ED Provider: Jeimy (ED)Vishal Abdominal Pain HPI General Chief Complaint: Abdominal Pain Stated Complaint: Vomitting,Abdominal pain Time Seen by Provider: 12/12/22 22:09 Mode of Arrival: Ambulatory Source of Information: Patient, Relative and Medical Record Limitations: No Limitations Description of Symptoms (Recalled from ER Triage Doc. by RN): pt to ED from home with generalized abd. pain that radiated into her pelvis. pt reports a miscarriage 2 weeks ago. History of Present Illness HPI narrative: pt reports about 1400 dev vomiting and crampy abd pain w/o diarrhea and no fever complaint: abdominal pain Onset (ago): hour(s) Consistency: intermittent Severity: moderate Associated symptoms: denies other symptoms Related Data Home Medications Medication Instructions Recorded Confirmed lamotrigine 100 mg tablet 100 mg PO DAILY BIPOLAR 09/13/21 12/04/21 amoxicillin 500 mg tablet 500 mg PO BID abx-mouth infection 12/04/21 12/04/21 hydroxyzine pamoate 25 mg capsule 25 mg PO BIDP PRN Anxiety 12/04/21 12/04/21 Previous Rx's Medication Instructions Recorded L.acidoph, paracasei,B. lactis 10 1 each PO BID 30 days #60 caps 12/04/21 billion cell capsule cefdinir 300 mg capsule 300 mg PO BID 10 days #20 caps 12/04/21 ondansetron 4 mg disintegrating 4 mg PO TIDP PRN Nausea 3 days #9 12/04/21 tablet tabs ondansetron HCl 4 mg tablet 4 mg PO Q8H PRN Nausea #14 tabs 12/12/22 Allergies Allergy/AdvReac Type Severity Reaction Status Date / Time No Known Allergies Allergy Verified 10/23/20 13:44 [facility] Disclaimer: The information contained in this section may have been updated after the patient was seen, as this information can be updated by other users. Social History Smoking Status: Never smoker alcohol intake: never substance use type: denies use current occupational status: other Travel in the last 8 weeks: None household members: none housing: other ROS Obtained: Yes All systems reviewed & no additional complaints except as documented Physical Exam General General appearance: alert Head Head exam: normocephalic Eye Eye exam: Present PERRL and EOMI ENT ENT exam: Present mucous membranes moist Neck Neck exam: Present trachea midline Respiratory Respiratory exam: Present normal lung sounds bilaterally; Absent respiratory distress Cardiovascular Cardiovascular exam: Present regular rate Abdominal Exam Abdominal exam: Present soft and tenderness; Absent guarding, rebound or rigidity Abdominal tenderness: Present epigastrium and mild Extremities Exam Extremities exam: Present full ROM Back Exam Back exam: Absent CVA tenderness (R) Neurological Exam Neurological exam: Present alert, oriented X3 and CN II-XII intact; Absent motor sensory deficit Psychiatric Psychiatric exam: Present normal affect Skin Skin exam: Absent rash Medical Decision Making Medical Records Medical records reviewed: Yes I reviewed the patient's medical records. Rafa Inquiry Pt receiving controlled substance: No Vital Signs: 12/12/22 20:43 12/12/22 21:30
--- NOTE | 2022-12-12 22:11 | CT_ITS ---
PROCEDURE INFORMATION: Exam: CT Abdomen And Pelvis With Contrast Exam date and time: 12/12/2022 10:28 PM Age: 22 years old Clinical indication: Abdominal pain; Generalized; Additional info: Generalized abd. Pain TECHNIQUE: Imaging protocol: Computed tomography of the abdomen and pelvis with contrast. Radiation optimization: All CT scans at this facility use at least one of these dose optimization techniques: automated exposure control; mA and/or kV adjustment per patient size (includes targeted exams where dose is matched to clinical indication); or iterative reconstruction. Contrast material: ISOVUE; Contrast volume: 75 ml; Contrast route: IV; REPORTING DATA: Count of CT and Cardiac NM exams in prior 12 months: This patient has received 0 known CTs and 0 known cardiac nuclear medicine studies in the 12 months prior to the current study. COMPARISON: CT ABDOMEN PELVIS W CON 05/29/2021 6:38 AM FINDINGS: Liver: Unchanged fatty infiltration of the liver. Gallbladder and bile ducts: Unchanged cholecystectomy. Pancreas: Normal. No ductal dilation. Spleen: Normal. No splenomegaly. Adrenal glands: Normal. No mass. Kidneys and ureters: Normal. No hydronephrosis. Stomach and bowel: The colon contains liquid stool with scattered regions of wall thickening especially distally. There is mild fluid also present in the small bowel distally. No evidence of bowel obstruction. Appendix: Stable appendectomy changes. Intraperitoneal space: Unremarkable. No free air. No significant fluid collection. Vasculature: Unremarkable. No abdominal aortic aneurysm. Lymph nodes: Unremarkable. No enlarged lymph nodes. Urinary bladder: Unremarkable as visualized. Reproductive: Tubular hypodensity in the right adnexa measuring 3.8 cm is similar to previous and likely a region of hydrosalpinx or a cyst. Bones/joints: Unremarkable. No acute fracture. Soft tissues: Unremarkable. IMPRESSION: Findings suggestive of diffuse colitis with diarrheal state and distal small bowel enteritis. This is likely infectious/inflammatory. No evidence of bowel obstruction.
[2022-12-12 22:21] LABS: Appearance,Urine CLEAR (Clear); Bilirubin,Urine Negative (Negative); Blood, Urine 1+ (Negative); Color,Urine YELLOW (Yellow); Glucose,Urine (UA) Negative (Negative); Ketones,Urine Negative (Negative); Leukocyte Esterase,Urine Negative (Negative); Microscopic, Urine URINE MICROSCOPIC (MICROSCOPIC); Nitrate,Urine Negative (Negative); Protein,Urine Negative (Negative); Urobilinogen,Urine 0.2 EU/dl (0.2)
[2022-12-12 22:27] LABS: Bacteria,Urine Trace /lpf; WBC,Urine Occasional #/hpf (0-3)
[2022-12-12 23:01] VITALS: BP 121/56; PULSE 99; RESP 18; O2SAT 98
[2022-12-12 23:31] VITALS: BP 122/54; PULSE 101; RESP 18; O2SAT 96
[2022-12-13 00:06] VITALS: BP 120/53; PULSE 98; RESP 18; TEMP 36.6; O2SAT 99
== END 2022-12-13 00:11 | disposition home or self-care (01) ==
PROVIDERS: Emergency Provider Emergency Medicine; PCP Emergency Medicine
DX: R10.9 Unspecified abdominal pain (principal)
CPT/HCPCS: 74177; 80053; 81001; 81025; 83690; 85007; 85025; 96361; 96374; 96375; 99284; 99285; J0131; J2405; Q9967

== ENCOUNTER 2023-07-03 18:16 | Emergency (ER) | payer MEDICAID, SELFPAY ==
[2023-07-03 18:48] VITALS: BP 125/75; PULSE 94; RESP 17; TEMP 36.9; O2SAT 97; BMI 34.0
--- NOTE | 2023-07-03 19:08 | PC.NURSE ---
1850 vitals obtain and patient placed back in lobby until ED room is available
[2023-07-03 19:40] LABS: Microscopic, Urine URINE MICROSCOPIC (MICROSCOPIC)
[2023-07-03 19:43] LABS: Appearance,Urine CLEAR (Clear); Bilirubin,Urine Negative (Negative); Blood, Urine TRACE-I (Negative); Glucose,Urine (UA) Negative (Negative); Ketones,Urine Negative (Negative); Leukocyte Esterase,Urine 1+ (Negative); Nitrate,Urine Negative (Negative); Protein,Urine Negative (Negative); Urobilinogen,Urine 0.2 EU/dl (0.2)
[2023-07-03 19:50] LABS: Color,Urine Yellow (Yellow)
[2023-07-03 20:16] LABS: RBC,Urine Occasional #/hpf (0-3); Squamous Epithelial Cell,Urine Occasional #/hpf (0-5); WBC,Urine Occasional #/hpf (0-3)
--- NOTE | 2023-07-03 20:34 | HMH.EDGENADL ---
Discharge Plan Disposition Patient Disposition: Home, Self-Care Prescriptions Prescriptions: New ondansetron 4 mg tablet,disintegrating 4 mg PO Q6H PRN (Reason: nausea and vomiting) Qty: 10 0RF No Action lamotrigine 100 MG tablet 100 mg PO DAILY hydroxyzine pamoate 25 MG capsule 25 mg PO BIDP PRN (Reason: Anxiety) amoxicillin 500 MG tablet 500 mg PO BID ondansetron 4 MG tablet,disintegrating 4 mg PO TIDP PRN (Reason: Nausea) 3 Days Qty: 9 0RF cefdinir 300 MG capsule 300 mg PO BID 10 Days Qty: 20 0RF L.acidoph, paracasei,B. lactis 1 EACH capsule 1 each PO BID 30 Days Qty: 60 0RF ondansetron HCl 4 mg Tablet 4 mg PO Q8H PRN (Reason: Nausea) Qty: 14 0RF Referrals Follow up/Referrals: Provider,Referral, MD [Primary Care Provider] - See instructions Activity Restrictions/Add. Instructions Additional Instructions/Restrictions: Call your family doctor to establish care for this visit to the emergency department and schedule follow-up within 48 hours to ensure improvement. If you have any worsening of your condition or any other concerning signs or symptoms, return to the emergency department or your primary care doctor for further evaluation. Take daily vitamin. Zofran sent to the pharmacy. Clinical Impressions Clinical Impression: Abdominal pain, vomiting, and diarrhea Instructions Patient Instructions: DI for Diarrhea and Traveler's Diarrhea -- Adult, DI for Diarrhea and Traveler's Diarrhea -- Child, DI for Nausea -- Adult, DI for Nausea -- Child Discharge ED Provider: Karel Carbajal General Adult HPI General Chief complaint: Nausea/Vomiting/Diarrhea Stated complaint: 9wk preg, Vomiting,Abd Pin,Body aches Time Seen by Provider: 07/03/23 20:07 Mode of Arrival: Family Vehicle Source of Information: Patient Limitations: No Limitations Description of Symptoms (Recalled from ER Triage Doc. by RN): Pt c/o RUQ and faheem-umbilical abd pain with n/v/d. States the diarrhea has been present for at least 3 days. She reports to be 9 wk with . 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 Denies any vaginal bleeding or d/c. Denies fever, chills, or SOA/cough. States her stool is watery and grn/ylw. She is s/p cholecycestomy, Appendectomy, and x2 D&C. She follows Dr. Stephany BRITO @ [facility] and has been seen for this and is confirmed IUP. History of Present Illness HPI narrative: 23-year-old female who is currently about 9 weeks by last menstrual period presenting with vomiting and diarrhea. Patient states that she started vomiting and having diarrhea about 5 days prior to arrival. Nonbloody, nonbilious vomiting, nonbloody diarrhea. Having 3-4 episodes per day it is yellow and green. Having crampy abdominal pain. No one around her is sick. Denies vaginal discharge or bleeding, dysuria hematuria, or any other concerns. Still able to tolerate p.o. intake. Related Data Home Medications Medication Instructions Recorded Confirmed lamotrigine 100 mg tablet 100 mg PO DAILY BIPOLAR 09/13/21 12/04/21 amoxicillin 500 mg tablet 500 mg PO BID abx-mouth infection 12/04/21 12/04/21 hydroxyzine pamoate 25 mg capsule 25 mg PO BIDP PRN Anxiety 12/04/21 12/04/21 Previous Rx's Medication Instructions Recorded L.acidoph, paracasei,B. lactis 10 1 each PO BID 30 days #60 caps 12/04/21 billion cell capsule cefdinir 300 mg capsule 300 mg PO BID 10 days #20 caps 12/04/21 ondansetron 4 mg disintegrating 4 mg PO TIDP PRN Nausea 3 days #9 12/04/21 tablet tabs ondansetron HCl 4 mg tablet 4 mg PO Q8H PRN Nausea #14 tabs 12/12/22 ondansetron 4 mg disintegrating 4 mg PO Q6H PRN nausea and 07/03/23 tablet vomiting #10 tabs Allergies Allergy/AdvReac Type Severity Reaction Status Date / Time No Known Allergies Allergy Verified 10/23/20 13:44 [facility] Disclaimer: The information contained in this section may have been updated after
[2023-07-03 21:16] LABS: Basophils % 0.3 % (0.1-2.0); Eosinophils # 0.1 K/mm3 (0.0-0.4); Eosinophils % 1.2 % (0.1-12.0); Hematocrit 40.3 % (37.0-47.0); Lymphocytes # 2.4 K/mm3 (0.7-4.5); Lymphocytes % 23.5 % (10-50); Mean Corpuscular HGB Conc 32.2 g/dL (31.8-35.4); Mean Corpuscular Hemoglobin 29.2 pg (27.0-31.2); Mean Corpuscular Volume 90.6 fl (81-99); Mean Platelet Volume 8.4 fl (7.4-10.4); Monocytes # 0.6 K/mm3 (0.1-1.0); Monocytes % 5.5 % (1.7-9.3); Neutrophils # 7.2 K/mm3 (1.8-7.8); Neutrophils % 69.5 % (37.0-80.0); Platelet Count 331 K/mm3 (142-424); Red Blood Count 4.44 M/mm3 (4.20-5.40); Red Cell Distribution Width 13.1 % (11.5-17.5); White Blood Count 10.4 K/mm3 (4.8-10.8)
[2023-07-03 21:22] LABS: Lipase 87 U/L (23-300)
[2023-07-03 21:23] LABS: Alanine Aminotransferase 22 U/L (12-78); Albumin Level 4.5 g/dl (3.5-5.0); Albumin/Globulin Ratio 1.2 (1.1-1.8); Alkaline Phosphatase 54 U/L (38-126); Aspartate Amino Transferase 31 U/L (14-36); Bilirubin,Total 0.4 mg/dl (0.2-1.3); Blood Urea Nitrogen 5 mg/dl (7-17); Calcium 9.4 mg/dl (8.4-10.2); Carbon Dioxide 27 mmol/L (22.0-30.0); Chloride 104 mmol/L (98-107); Creatinine Clearance Estimated 305 mL/min (50-200); Estimated Glomerular Filt Rate 194 ml/min (>60); GFR (African American) 235 ML/MIN (>60); Globulin 3.9 g/dL (1.3-3.2); Glucose 91 mg/dl (74-100); Sodium 137 mmol/L (136-145); Total Protein,Serum 8.4 g/dl (6.3-8.2)
[2023-07-03 23:23] VITALS: BP 145/62; PULSE 84; RESP 18; TEMP 36.7; O2SAT 98
--- NOTE | 2023-07-06 10:05 | PC.NURSE ---
urine culture on worklist- shows mixed urogenital arnold. Notified Dr. Lafleur- states no action needed.
== END 2023-07-03 23:27 | disposition home or self-care (01) ==
PROVIDERS: Emergency Provider Emergency Medicine
DX: O26.891 Other specified pregnancy related conditions, first trimester (principal); R10.9 Unspecified abdominal pain; O23.41 Unspecified infection of urinary tract in pregnancy, first trimester; B96.89 Other specified bacterial agents as the cause of diseases classified elsewhere; Z3A.09 9 weeks gestation of pregnancy; R11.2 Nausea with vomiting, unspecified; R19.7 Diarrhea, unspecified
CPT/HCPCS: 80053; 81001; 83690; 84702; 85025; 87086; 96361; 96374; 99284; J0131

== ENCOUNTER 2023-10-15 12:42 | Emergency (ER) | payer MEDICAID, SELFPAY ==
[2023-10-15 13:30] VITALS: BP 130/74; PULSE 94; RESP 18; TEMP 36.6; O2SAT 99; BMI 33.3
--- NOTE | 2023-10-15 13:50 | ED_ITS ---
Discharge Plan Disposition Patient Disposition: Home, Self-Care Condition: Good Referrals Follow up/Referrals: Provider,Referral, [Primary Care Provider] - See instructions Activity Restrictions/Add. Instructions Additional Instructions/Restrictions: Monitor Temp, Over the counter Motrin or Tylenol as directed/as needed Tylenol every 4 hours and Motrin every 6 hours (as long as your family doctor has told you that you can take it) for fever or pain. and straight to ER if unable to lower temp less than 101.0 after medication given *Warm salt water gargles may help to soothe the throat *Throat Lozenges? *Warm fluids like tea with honey may help to soothe the throat? *Sleep elevated *Humidifier/Vaporizer Your throat swab was sent for culture. Those results are typically sent to your primary care. Be sure to follow up in 2-3 days with your family doctor/primary care physician if no improvement so they can review those result and treat if necessary. If you don?t have a primary care doctor, I recommend you get one but in the mean time, you will have to return to a walk in clinic Follow up IMMEDIATELY for new or worsening symptoms or no Noticeable improvement over the next 48-72 hours. 911 for difficulty breathing or sw allowing You were tested for today for Upper Respiratory Panel with COVID19 your test result should be back in the next 24hours, you may check your results on the [facility] [employer] [facility] Clinical Impressions Clinical Impression: Viral syndrome Stand Alone Forms Stand Alone Forms: Work/School Release Instructions Patient Instructions: DI for Viral Syndrome Discharge ED Provider: Isabel Pal [facility] General Stated complaint: fever, congestion 24 weeks preg Mode of Arrival: Ambulatory Source of Information: Patient Limitations: No Limitations Time Seen by Provider: 10/15/23 13:50 Description of Symptoms (Recalled from Triage Doc. by RN): PATIENT C/O BODY ACHES, FEVER AND CHILLS X 3 DAYS HEENT Symptoms (Recalled from RN notes): No Resp Symptoms (Recalled from RN notes): No Skin Symptoms (Recalled from RN notes): No MS Symptoms (Recalled from RN notes): No Functional Status (Recalled from RN notes): WNL History of Present Illness Provider Complaint: Patient states that she has been caring for her 2 kids and that has had the flu and now she feels like she may have it too States that she is 24wks OB and she is having body aches, chills, and fever on and off so today when she was still not feeling any better she came in to get checked Related Data Allergies Allergy/AdvReac Type Severity Reaction Status Date / Time No Known Allergies Allergy Verified 10/23/20 13:44 Worker's Comp Is this a Worker's Comp case?: No [facility] Disclaimer: The information contained in this section may have been updated after the pa prieto was seen, as this information can be updated by other users. Medical History (Updated 10/15/23 @ 13:59 by Isabel Pal APRN) Anxiety Depression Surgical History (Updated 10/15/23 @ 13:40 by Sindy Liu RN) History of appendectomy History of cholecystectomy Social History Smoking Status: Never smoker alcohol intake: never substance use type: denies use current occupational status: other Travel in the last 8 weeks: None household members: none housing: other ROS Obtained: Yes All systems reviewed & no additional complaints except as documented and Yes Systems reviewed as appropriate & no additional complaints except as documented Constitutional Constitutional: Reports system reviewed and no additional complaints, except as documented, Reports as per HPI, Reports body ache, Reports chills, Reports fever(s) and Reports headache(s) ENT Ears, Nose, Mouth, and Throat: Reports system reviewed and no additional complaints, except as documented, Reports as per HPI, Reports headache(s) and Reports nasal congestion Cardiovascular Cardiovascular: Reports system reviewed and no additional complaints, except as documented and Reports as per HPI Respiratory Respiratory: Reports system reviewed and no additional complaints, except as documented and Reports as per HPI Gastrointestinal Gastrointestingal: Reports system reviewed and no additional complaints, except as documented and as per HPI; Denies abdominal pain, cramping, diarrhea, nausea or vomiting Genitourinary Female Genitourinary: Reports system reviewed and no additional complaints, except as documented and Reports as per HPI Neurologic Neurologic: Reports headache(s) Physical Exam General General appearance: alert and in no apparent distress ENT ENT exam: Present mucous membranes moist Expanded ENT Exam Throat exam: Present tonsillar erythema Respiratory Respiratory exam: Present normal lung sounds bilaterally; Absent respiratory distress or wheezes Cardiovascular Cardiovascular exam: Present regular rate, normal rhythm and normal heart sounds Abdominal Exam Abdominal exam: Present soft and normal bowel sounds; Absent distention or tenderness Neurological Exam Neurological exam: Present alert, oriented X3 and normal gait Medical Decision Making Rafa Inquiry Pt receiving controlled substance: No Rafa was queried for this patient: No Vital Signs: 10/15/23 13:30 Temperature 97.8 F Temperature Source Oral Pulse Rate [Left Brachial] 94 H Respiratory Rate 18 Blood Pressure [Left Arm] 130/74 Blood Pressure Mean [Left Arm] 92 Blood Pressure Source [Left Arm] Automatic Cuff Blood Pressure Position [Left Arm] Sitting 02 Sat by Pulse Oximetry 99 Oxygen Delivery Method Room Air Lab Data Lab results reviewed: Yes I reviewed the patient's lab results.
[2023-10-15 13:53] LABS: UTC Influenza A Antigen Negative (Negative); UTC Influenza B Antigen Negative (Negative)
[2023-10-15 14:04] VITALS: BP 130/74; PULSE 94; RESP 18; TEMP 36.6; O2SAT 99
[2023-10-15 14:08] LABS: UTC Strep Screen (Rapid) Positive (Negative)
== END 2023-10-15 14:24 | disposition home or self-care (01) ==
PROVIDERS: Emergency Provider Nurse Practitioner
DX: J02.0 Streptococcal pharyngitis; R50.9 Fever, unspecified; Z3A.24 24 weeks gestation of pregnancy; R51.9 Headache, unspecified; R09.81 Nasal congestion; M79.18 Myalgia, other site; Z20.828 Contact with and (suspected) exposure to other viral communicable diseases; O26.892 Other specified pregnancy related conditions, second trimester
CPT/HCPCS: 87804; 87880; 99212; 99214; G0463

== ENCOUNTER 2023-10-16 19:47 | Emergency (ER) | payer MEDICAID, SELFPAY ==
[2023-10-16 19:50] VITALS: BP 137/83; PULSE 113; RESP 16; TEMP 37.6; O2SAT 97; BMI 32.8
--- NOTE | 2023-10-16 20:24 | ECG_ITS ---
APPROVED REPORT Exam: Resting ECG HR:105 bpm ECG Measurements Heart Rate [address] 100 P 32 QRSd 89 QRS 39 QT 333 T 41 QTc 394 Conclusion SINUS TACHYCARDIA WITH SHORT CT INTERVAL MINIMAL ST DEPRESSION [0.025+ mV ST DEPRESSION] ABNORMAL RHYTHM ECG UNCONFIRMED REPORT Electronically signed by : Wilner Watkins MD 10/20/2023 14:49:51
[2023-10-16 20:28] VITALS: BMI 32.8
[2023-10-16 20:33] LABS: Coronavirus 19, PCR Not Detected (NotDetected); Influenza B, PCR Not Detected (NotDetected)
[2023-10-16 20:33] LABS: Microscopic, Urine URINE MICROSCOPIC (MICROSCOPIC)
[2023-10-16 20:37] LABS: Appearance,Urine CLEAR (Clear); Blood, Urine TRACE-I (Negative); Color,Urine YELLOW (Yellow); Glucose,Urine (UA) Negative (Negative); Ketones,Urine Negative (Negative); Leukocyte Esterase,Urine 1+ (Negative); Nitrate,Urine Negative (Negative); Protein,Urine TRACE (Negative)
[2023-10-16 20:37] LABS: Basophils % 0.2 % (0.1-2.0); Eosinophils # 0.1 K/mm3 (0.0-0.4); Eosinophils % 0.9 % (0.1-12.0); Hematocrit 37.9 % (37.0-47.0); Lymphocytes # 0.8 K/mm3 (0.7-4.5); Mean Corpuscular HGB Conc 34.4 g/dL (31.8-35.4); Mean Corpuscular Hemoglobin 30.8 pg (27.0-31.2); Mean Corpuscular Volume 89.7 fl (81-99); Mean Platelet Volume 9.3 fl (7.4-10.4); Monocytes # 0.4 K/mm3 (0.1-1.0); Monocytes % 4.1 % (1.7-9.3); Neutrophils # 8.2 K/mm3 (1.8-7.8); Neutrophils % 86.9 % (37.0-80.0); Platelet Count 243 K/mm3 (142-424); Red Blood Count 4.22 M/mm3 (4.20-5.40); Red Cell Distribution Width 13.6 % (11.5-17.5); White Blood Count 9.4 K/mm3 (4.8-10.8)
[2023-10-16 20:39] LABS: MANUAL DIFFERENTIAL MANUAL DIFFERENTIAL (MANUAL DIFF)
[2023-10-16 20:40] LABS: Bilirubin,Urine 1+ (Negative)
[2023-10-16 20:54] LABS: Influenza A, PCR Detected (NotDetected)
[2023-10-16 20:58] LABS: Lymphocytes % 13 % (10-50); Monocytes % 4 % (2-9); Neutrophils % 83 % (42-76); Total Cells Counted 100
[2023-10-16 20:59] LABS: Chloride 101 mmol/L (98-107); Platelet Estimate Normal; Potassium 4.5 mmoL/L (3.5-5.1); RBC Morphology Normal; Sodium 133 mmol/L (136-145)
[2023-10-16] MEDS: LACTATED RINGERS 1000ML 1,000 ML 999 ML IV (20:59)
[2023-10-16 21:02] LABS: Alanine Aminotransferase 14 U/L (12-78); Albumin Level 3.6 g/dl (3.5-5.0); Albumin/Globulin Ratio 1.1 (1.1-1.8); Alkaline Phosphatase 73 U/L (38-126); Anion Gap 10.5 mEq/L (5-15); Aspartate Amino Transferase 31 U/L (14-36); Bilirubin,Total 0.8 mg/dl (0.2-1.3); Blood Urea Nitrogen 6 mg/dl (7-17); Carbon Dioxide 26 mmol/L (22.0-30.0); Creatinine Clearance Estimated 235 mL/min (50-200); Estimated Glomerular Filt Rate 150 ml/min (>60); GFR (African American) 182 ML/MIN (>60); Globulin 3.2 g/dL (1.3-3.2); Total Protein,Serum 6.8 g/dl (6.3-8.2)
[2023-10-16] MEDS: PROMETHAZINE HCL 25MG/ML 1ML VIAL 25 MG IV (21:02)
[2023-10-16 21:03] LABS: Calcium 8.4 mg/dl (8.4-10.2); Glucose 89 mg/dl (74-100)
[2023-10-16 21:21] LABS: RBC,Urine Occasional #/hpf (0-3)
[2023-10-16 21:30] VITALS: BP 119/75; PULSE 102; RESP 23; O2SAT 96
[2023-10-16 22:00] VITALS: BP 113/81; RESP 20
--- NOTE | 2023-10-16 22:25 | HMH.EDGENADL ---
Discharge Plan Disposition Patient Disposition: Home, Self-Care Prescriptions Prescriptions: New oseltamivir [Tamiflu] 75 mg capsule 75 mg PO BID 5 Days Qty: 10 0RF promethazine 25 mg tablet 25 mg PO TID PRN (Reason: nausea and vomiting) Qty: 15 0RF No Action amoxicillin 500 mg capsule 500 mg PO BID 10 Days Qty: 20 0RF Referrals Follow up/Referrals: Buster Hammond MD [Primary Care Provider] - See instructions Activity Restrictions/Add. Instructions Additional Instructions/Restrictions: At this time it was felt you are safe to be discharged home. If new or worsening symptoms please do not hesitate to return the emergency department. The flu typically last between 5 and 10 days. If symptoms persist please follow-up with your family doctor as you are able. Please take your medication as prescribed. Clinical Impressions Clinical Impression: Influenza A Instructions Patient Instructions: DI for Diarrhea and Traveler's Diarrhea -- Adult, DI for Diarrhea and Traveler's Diarrhea -- Child, DI for Nausea -- Adult, DI for Nausea -- Child Discharge ED Provider: Eliezer Lafleur General Adult HPI General Chief complaint: Nausea/Vomiting/Diarrhea Stated complaint: 24 weeks ,body aches,N/V Time Seen by Provider: 10/16/23 21:00 Mode of Arrival: Ambulatory Source of Information: Patient Limitations: No Limitations Description of Symptoms (Recalled from ER Triage Doc. by RN): pt c/o n/v, FLORES ,chills,head fullness, dizziness, and abd cramping and pressure.pt is currently 24 weeks . pt is on amoxicillin for strep throat History of Present Illness HPI narrative: Patient is a 23-year-old female currently 24 weeks who presents emergency department for evaluation of headache, chills, dizziness, nonbloody vomiting. Onset was acute, occurring since . Patient is on amoxicillin for sore throat. Denies vaginal bleeding or lower abdominal pain. No other acute complaints at this time. Related Data Previous Rx's Medication Instructions Recorded amoxicillin 500 mg capsule 500 mg PO BID 10 days #20 caps 10/15/23 oseltamivir 75 mg capsule (Tamiflu) 75 mg PO BID 5 days #10 caps 10/16/23 promethazine 25 mg tablet 25 mg PO TID PRN nausea and 10/16/23 vomiting #15 tabs Allergies Allergy/AdvReac Type Severity Reaction Status Date / Time No Known Allergies Allergy Verified 10/23/20 13:44 [facility] Disclaimer: The information contained in this section may have been updated after the patient was seen, as this information can be updated by other users. Medical History (Updated 10/16/23 @ 22:57 by Eliezer Lafleur MD) Anxiety Depression Surgical History (Updated 10/15/23 @ 13:40 by Sindy Liu RN) History of appendectomy History of cholecystectomy Social History Smoking Status: Never smoker alcohol intake: never substance use type: denies use current occupational status: other Travel in the last 8 weeks: None household members: none housing: other ROS Obtained: Yes Systems reviewed as appropriate & no additional complaints except as documented Physical Exam General General appearance: alert and in no apparent distress Head Head exam: atraumatic and normocephalic Eye Eye exam: Present PERRL and EOMI ENT ENT exam: Present mucous membranes moist; Absent normal oropharynx (Mild erythema posterior oropharynx) Neck Neck exam: Present normal inspection Chest Chest inspection: Present normal inspection and symmetric chest wall rise Respiratory Respiratory exam: Present normal lung sounds bilaterally; Absent respiratory distress Cardiovascular Cardiovascular exam: Present regular rate and normal rhythm Abdominal Exam Abdominal exam: Present soft and other (Gravid); Absent tenderness Extremities Exam Extremities exam: Present normal inspection Neurological Exam Neurological exam: Present alert Psychiatric Psychiatric exam: Present normal affect Skin Skin exam: Present warm and dry Medical Decision Making Rafa Inquiry Pt receiving controlled substance: No Vital Signs: 10/16/23 19:50 10/16/23 21:30 10/16/23 22:00 Temperature 99.7 F H Temperature Source Oral Pulse Rate 102 H Pulse Rate [Right] 113 H Respiratory Rate 16 23 20 Blood Pressure 119/75 113/81 Blood Pressure [Right Arm] 137/83 Blood Pressure Mean [Right Arm] 101 02 Sat by Pulse Oximetry 97 96 10/16/23 22:30 Temperature Temperature Source Pulse Rate 107 H Pulse Rate [Right] Respiratory Rate 21 Blood Pressure 125/75 Blood Pressure [Right Arm] Blood Pressure Mean [Right Arm] 02 Sat by Pulse Oximetry 95 Lab Data Lab Results 10/16/23 20:12: Urine Color Yellow, Urine Appearance Clear, Urine pH 7.0, Ur Specific [place] 1.020, Urine Protein Trace, Urine Glucose (UA) Negative, Urine Ketones Negative, Urine Blood Trace-i, Urine Nitrate Negative, Urine Bilirubin 1+ A, Urine Urobilinogen 1.0, Ur Leukocyte Esterase 1+ A, Urine RBC Occasional, Urine WBC 3-5, Ur Squamous Epith Cells 5-10, Urine Bacteria None 10/16/23 20:24: WBC 9.4, RBC 4.22, Hgb 13.0, Hct 37.9, MCV 89.7, MCH 30.8, MCHC 34.4, RDW 13.6, Plt Count 243, MPV 9.3, Neut % (Auto) 86.9 H, Lymph % (Auto) 8.0 L, [place] % (Auto) 4.1, Eos % (Auto) 0.9, Baso % (Auto) 0.2, Neut # (Auto) 8.2 H, Lymph # (Auto) 0.8, [place] # (Auto) 0.4, Eos # (Auto) 0.1, Baso # (Auto) 0.0, Total Counted 100, Neutrophils % (Manual) 83 H, Lymphocytes % (Manual) 13, Monocytes % (Manual) 4, Platelet Estimate Normal, RBC Morphology Normal, Sodium 133 L, Potassium 4.5, Chloride 101, Carbon Dioxide 26, Anion Gap 10.5, BUN 6 L, Creatinine 0.50 L, Estimated Creat Clear 235, Estimated GFR 150, Est GFR ( Amer) 182, Glucose 89, Calcium 8.4, Total Bilirubin 0.8, AST 31, ALT 14, Alkaline Phosphatase 73, Total Protein 6.8, Albumin 3.6, Globulin 3.2, Albumin/Globulin Ratio 1.1, SARS-CoV-2 (PCR) Not detected, Influenza A Untype (PCR) Detected A, Influenza Type B (PCR) Not detected 10/16/23 20:24 10/16/23 20:24 Orders (Tests/Meds): ED MEDICATIONS Discontinued Medications Generic Name Dose Route Start Last Admin Trade Name Freq PRN Reason Stop Dose Admin Lactated Ringer's 1,000 mls @ 999 mls/hr 10/16/23 20:52 10/16/23 20:59 Lactated Ringer's 1000 Ml Bag IV 10/16/23 21:52 999 mls/hr .Q1H1M ONE Administration Promethazine HCl 25 mg 10/16/23 20:52 10/16/23 21:02 Promethazine Hcl 25mg/Ml 1ml Vial IV 10/16/23 20:53 25 mg ONCE ONE Administration Sodium Chloride 25 ml 10/16/23 20:52 Sodium Chloride 0.9% 25ml Bag IV 10/16/23 20:53 ONCE ONE ORDERS Category Date Time Status Complete Blood Count Auto Diff Stat Lab 10/16/23 20:24 Completed Comprehensive Metabolic Panel Stat Lab 10/16/23 20:24 Completed Rapid PCR Covid and Flu A/B Stat Lab 10/16/23 20:24 Completed Urinalysis and Microscopic Stat Lab 10/16/23 20:12 Completed Urine Culture Stat Micro 10/16/23 20:12 Received Medical Decision Narrative: In summary patient is a 23-year-old female past medical history described above who presents emergency department for evaluation of headache, myalgias, vomiting in setting of 24 weeks . Patient is hemodynamically stable nontoxic-appearing upon arrival, afebrile, slightly tachycardic. Differential diagnosis includes viral syndrome, urinary tract infection, among others. Workup will be conducted with hematologic labs, viral swab, urinalysis. Initial inventions include Phenergan, crystalloid bolus. Workup reviewed by me, hematologic labs are nonactionable. Urinalysis interpreted by me and not consistent with infection. Patient is influenza A positive. Patient underwent p.o. trial and was successful at bedside. Given this patient is appropriate for discharge at this time will be discharged with a course of Phenergan and Tamiflu. Critical Care Critical Care Time Critical Care Time: No
[2023-10-16 22:30] VITALS: BP 125/75; PULSE 107; RESP 21; O2SAT 95
[2023-10-16 23:00] VITALS: BP 126/73; PULSE 101; RESP 22; O2SAT 99
[2023-10-16 23:20] VITALS: BP 126/73; PULSE 101; RESP 16; TEMP 36.9; O2SAT 99
== END 2023-10-16 23:21 | disposition home or self-care (01) ==
PROVIDERS: Emergency Provider Emergency Medicine; PCP Obstetrics & Gynecology
DX: O98.512 Other viral diseases complicating pregnancy, second trimester (principal); J10.2 Influenza due to other identified influenza virus with gastrointestinal manifestations; R51.9 Headache, unspecified; J10.89 Influenza due to other identified influenza virus with other manifestations; R11.10 Vomiting, unspecified; R42 Dizziness and giddiness; Z3A.24 24 weeks gestation of pregnancy
CPT/HCPCS: 80053; 81001; 85007; 85025; 87086; 87636; 93005; 96361; 96374; 99285

== ENCOUNTER 2023-12-01 11:50 | Emergency (ER) | payer MEDICAID, SELFPAY ==
[2023-12-01 12:05] VITALS: BP 140/77; PULSE 121; RESP 18; TEMP 36.9; O2SAT 96; BMI 35.3
--- NOTE | 2023-12-01 12:17 | EXP.UTC ---
Discharge Plan Disposition Patient Disposition: Home, Self-Care Condition: Good Referrals Follow up/Referrals: Buster Hammond MD [Primary Care Provider] - See instructions Activity Restrictions/Add. Instructions Additional Instructions/Restrictions: Drink plenty of fluids. Take tylenol pain or fever. Follow up with your regular doctor. GO TO THE ER FOR ANY WORSENING SYMPTOMS Clinical Impressions Clinical Impression: Acute viral syndrome Instructions Patient Instructions: DI for Viral Syndrome Discharge ED Provider: [place]achery Hooper [facility] [place] General Stated complaint: stuffy nose, cough, body aches Time Seen by Provider: 12/01/23 12:16 History of Present Illness Provider Complaint: She states that she has had fever, chills, malaise, and body aches for the past 1 day. Related Data Allergies Allergy/AdvReac Type Severity Reaction Status Date / Time No Known Allergies Allergy Verified 12/01/23 12:37 [facility] Disclaimer: The information contained in this section may have been updated after the patient was seen, as this information can be updated by other users. Medical History (Updated 12/01/23 @ 12:49 by Zachery Hooper APRN) Depression Anxiety Surgical History History of cholecystectomy History of appendectomy Social History Smoking Status: Never smoker alcohol intake: never substance use type: denies use current occupational status: other Travel in the last 8 weeks: None household members: none housing: other ROS Obtained: Yes All systems reviewed & no additional complaints except as documented Constitutional Constitutional: Reports chills and Reports fever(s) Eyes Eyes: Denies eye discharge ENT Ears, Nose, Mouth, and Throat: Reports as per HPI Cardiovascular Cardiovascular: Denies chest pain Respiratory Respiratory: Denies chest congestion and Reports cough Gastrointestinal Gastrointestingal: Reports nausea; Denies abdominal pain, constipation, cramping, diarrhea or vomiting Musculoskeletal Musculoskeletal: Denies arthralgias Integumentary/Breasts Skin/Breast: Denies rash Neurologic Neurologic: Denies paresthesias Physical Exam General General appearance: alert and in no apparent distress Eye Eye exam: Present normal appearance, PERRL and EOMI ENT ENT exam: Present mucous membranes moist and normal external ear exam Expanded ENT Exam External ear exam: Present normal external inspection TM/Canal exam: Bilateral TM: erythema and bulging Nose exam: Absent sinus tenderness Nasal speculum exam: Bilateral: normal Mouth exam: Present normal external inspection; Absent drooling Teeth exam: Present normal inspection Throat exam: Present tonsillar erythema and tonsillomegaly Neck Neck exam: Present normal inspection, full ROM and trachea midline; Absent tenderness, lymphadenopathy or thyromegaly Chest Chest inspection: Present normal inspection and symmetric chest wall rise; Absent tenderness or rash Respiratory Respiratory exam: Present normal lung sounds bilaterally; Absent respiratory distress, wheezes, stridor or accessory muscle use Cardiovascular Cardiovascular exam: Present regular rate, normal rhythm and normal heart sounds Abdominal Exam Abdominal exam: Present soft; Absent distention, tenderness, guarding, rebound or rigidity Extremities Exam Extremities exam: Present normal inspection, full ROM and normal capillary refill; Absent tenderness or calf tenderness Back Exam Back exam: Present normal inspection and full ROM; Absent tenderness Neurological Exam Neurological exam: Present alert and oriented X3 Psychiatric Psychiatric exam: Present normal affect and normal mood Skin Skin exam: Present warm, dry, intact and normal color Lymphatic Lymphatic Findings: no adenopathy Medical Decision Making Medical Records Medical records reviewed: No I reviewed the patient's medical records. Rafa Inquiry Pt receiving controlled substance: No Lab Data Lab results reviewed: Yes I reviewed the patient's lab results.
[2023-12-01 12:41] LABS: UTC Influenza A Antigen Negative (Negative); UTC Strep Screen (Rapid) Negative (Negative)
[2023-12-01 12:42] LABS: UTC Influenza B Antigen Negative (Negative)
[2023-12-01 13:02] VITALS: BP 140/77; PULSE 121; RESP 18; TEMP 36.9; O2SAT 96
[2023-12-01 13:08] LABS: Coronavirus 19, PCR Not Detected (NotDetected); Influenza A, PCR Not Detected (NotDetected); Influenza B, PCR Not Detected (NotDetected)
== END 2023-12-01 13:02 | disposition home or self-care (01) ==
PROVIDERS: Emergency Provider Nurse Practitioner Family; PCP Obstetrics & Gynecology
DX: R05.9 Cough, unspecified (principal); R50.9 Fever, unspecified; R53.81 Other malaise; B34.9 Viral infection, unspecified
CPT/HCPCS: 87636; 87804; 87880; 99212; 99213; G0463

== ENCOUNTER 2023-12-28 18:17 | Outpatient (CLI) | payer MEDICAID, SELFPAY | END 2023-12-28 23:59 | LOC: LAB.DROPOF 18:18 | PROVIDERS: PCP Student in an Organized Health Care Education/Training Program; Visit Provider Student in an Organized Health Care Education/Training Program | DX: R68.89 Other general symptoms and signs (principal); U07.1 COVID-19; R50.9 Fever, unspecified; R05.8 Other specified cough; R51.9 Headache, unspecified | CPT/HCPCS: 87635 ==

== ENCOUNTER 2024-01-02 14:12 | Outpatient (CLI) | payer MEDICAID, SELFPAY ==
[2024-01-02 14:30] VITALS: BMI 35.0; BMI 35.6
[2024-01-02 14:45] LABS: Microscopic, Urine URINE MICROSCOPIC (MICROSCOPIC)
[2024-01-02 14:48] LABS: Appearance,Urine CLEAR (Clear); Bilirubin,Urine Negative (Negative); Blood, Urine Negative (Negative); Color,Urine YELLOW (Yellow); Glucose,Urine (UA) Negative (Negative); Ketones,Urine Negative (Negative); Leukocyte Esterase,Urine Negative (Negative); Nitrate,Urine Negative (Negative); Protein,Urine Negative (Negative); Specific Gravity, Urine 1.015 (1.005-1.030); Urobilinogen,Urine 0.2 EU/dl (0.2)
[2024-01-02 14:59] LABS: Benzodiazepines Screen,Urine Negative ng/ml (<200)
[2024-01-02 15:00] LABS: Amphetamine/Metha Screen,Urine Negative ng/ml (<1000)
[2024-01-02 15:01] LABS: Barbiturates Screen,Urine Negative ng/ml (<200); Methadone Screen,Urine Negative ng/ml (<300)
[2024-01-02 15:02] LABS: Cannabinoid Screen,Urine Negative ng/ml (<50)
[2024-01-02 15:03] LABS: Cocaine Screen,Urine Negative ng/ml (<300); Phencyclidine Screen,Urine Negative ng/ml (<25)
[2024-01-02 15:04] LABS: Opiate Screen,Urine Negative ng/ml (<300)
[2024-01-02 15:08] LABS: Bacteria,Urine 1+ /lpf
== END 2024-01-02 15:35 | disposition home or self-care (01) ==
LOC: OBOUT 14:14 → OB 14:15
PROVIDERS: PCP Obstetrics & Gynecology; Visit Provider Obstetrics & Gynecology
DX: Z3A.35 35 weeks gestation of pregnancy; O47.03 False labor before 37 completed weeks of gestation, third trimester
CPT/HCPCS: 80307; 81001; G0463

== ENCOUNTER 2024-01-05 01:09 | Emergency (ER) | payer MEDICAID, SELFPAY ==
--- NOTE | 2024-01-05 01:16 | HMH.EDGENADL ---
Discharge Plan Disposition Patient Disposition: Home, Self-Care Condition: Good Prescriptions Prescriptions: No Action pjuiowhqjosqinm-escgqctlo-NL [Bromfed DM] 2-30-10 mg/5 mL syrup 5 ml PO Q4-6H PRN (Reason: cold symptoms) Qty: 118 0RF Referrals Follow up/Referrals: Buster Hammond MD [Primary Care Provider] - See instructions Activity Restrictions/Add. Instructions Additional Instructions/Restrictions: Please follow-up with your primary care provider. Please return to the emergency department if you develop any new or worsening symptoms or become concerned for your health. Please continue using sitz bath's and xygx-wkb-htfscvr medications as needed. Clinical Impressions Clinical Impression: Hemorrhoids during , Acute hemorrhoid Discharge ED Provider: Abdoulaye Schneider Adult HPI General Chief complaint: PAIN Stated complaint: thrombose hemorrhoid, 35 wks antepartum Time Seen by Provider: 01/05/24 01:16 History of Present Illness HPI narrative: 23-year-old female with history of hemorrhoids, currently 35 weeks presents with anal pain and concern for thrombosed hemorrhoid. Reports that she has had this issue in the past and had it excised. She had been constipated for approximate last week and developed the pain thereafter. She had a bowel movement yesterday but the pain is continued. She reports it feels similar to when she had a thrombosed hemorrhoid in the past. She denies any vaginal bleeding, vaginal discharge, abdominal pain, urinary symptoms or any other related symptoms. Reports that she has been using Preparation H at home without symptomatic improvement. Related Data Previous Rx's Medication Instructions Recorded ozarfinjidchaby-jgjssudoiqwhkek-YC 5 ml PO Q4-6H PRN cold symptoms 12/28/23 2 mg-30 mg-10 mg/5 mL oral syrup #118 mL (Bromfed DM) Allergies Allergy/AdvReac Type Severity Reaction Status Date / Time No Known Allergies Allergy Verified 12/28/23 13:33 [facility] Disclaimer: The information contained in this section may have been updated after the patient was seen, as this information can be updated by other users. Medical History Depression Anxiety Surgical History History of cholecystectomy History of appendectomy Social History Smoking Status: Never smoker alcohol intake: never substance use type: denies use current occupational status: employed Travel in the last 8 weeks: None household members: none housing: other ROS Obtained: Yes All systems reviewed & no additional complaints except as documented Physical Exam General General appearance: alert and in no apparent distress Head Head exam: atraumatic and normocephalic Eye Eye exam: Present normal appearance, PERRL and EOMI ENT ENT exam: Present normal oropharynx and normal external ear exam Neck Neck exam: Present normal inspection and full ROM Chest Chest inspection: Present normal inspection and symmetric chest wall rise; Absent tenderness Respiratory Respiratory exam: Present normal lung sounds bilaterally; Absent respiratory distress Cardiovascular Cardiovascular exam: Present regular rate and normal rhythm Abdominal Exam Abdominal exam: Present soft; Absent distention, tenderness or guarding Rectal Exam Rectal exam: Present deferred Extremities Exam Extremities exam: Present normal inspection; Absent edema or joint swelling Back Exam Back exam: Present normal inspection; Absent tenderness Neurological Exam Neurological exam: Present alert and oriented X3; Absent motor sensory deficit Psychiatric Psychiatric exam: Present normal affect and normal mood Skin Skin exam: Present warm, dry and normal color Lymphatic Lymphatic Findings: no adenopathy Medical Decision Making Medical Records Medical records reviewed: Yes I reviewed the patient's medical records. Rafa Inquiry Pt receiving controlled substance: No Rafa was queried for this patient: No Vital Signs: 01/05/24 01:18 01/05/24 01:39 Temperature 98.1 F 98.1 F Temperature Source Oral Pulse Rate 97 H Pulse Rate [Left] 100 H Respiratory Rate 16 16 Blood Pressure 114/81 Blood Pressure [Right Arm] 149/83 H Blood Pressure Mean [Right Arm] 105 Blood Pressure Source [Right Arm] Automatic Cuff Blood Pressure Position [Right Arm] Sitting 02 Sat by Pulse Oximetry 97 Lab Data Lab results reviewed: Yes I reviewed the patient's lab results. Orders (Tests/Meds): ED MEDICATIONS Discontinued Medications Generic Name Dose Route Start Last Admin Trade Name Freq PRN Reason Stop Dose Admin Lidocaine HCl 15 ml 01/05/24 01:31 01/05/24 01:33 Lidocaine 2% Viscous Swati 15ml Udc PO 01/05/24 01:32 15 ml ONCE ONE Administration Medical Decision Narrative: 23-year-old female, 35 weeks , history of prior hemorrhoids presents with concern for painful hemorrhoid. History was obtained interactive discussion with patient. On arrival, patient is [afebrile, hemodynamically stable, satting appropriately, alert, oriented x4, GCS 15], moving all extremities spontaneously. Full physical exam performed and significant for gravid abdomen, exam deferred. Differential includes but is not limited to internal hemorrhoid, external hemorrhoid, thrombosed hemorrhoid, constipation. Patient's history and reported exam is consistent with a hemorrhoid, possibly thrombosed. Given she is 35 weeks , I feel that conservative management is the appropriate approach at this time. I discussed with patient increasing fiber, sitz bath's, topical ointments etc. We gave her topical lidocaine for application tonight. Patient was discharged in stable condition. Return precautions given. Procedures Risk/Benefits of Procedure(s) Were Explained: Yes Critical Care Critical Care Time Critical Care Time: No
[2024-01-05 01:18] VITALS: BP 149/83; PULSE 100; RESP 16; TEMP 36.7; O2SAT 97; BMI 35.6
[2024-01-05] MEDS: LIDOCAINE 2% VISCOUS SOL 15ML UDC 15 ML PO (01:33)
[2024-01-05 01:39] VITALS: BP 114/81; PULSE 97; RESP 16; TEMP 36.7
== END 2024-01-05 01:47 | disposition home or self-care (01) ==
PROVIDERS: Emergency Provider Emergency Medicine; PCP Obstetrics & Gynecology
DX: O22.43 Hemorrhoids in pregnancy, third trimester (principal); Z3A.35 35 weeks gestation of pregnancy
CPT/HCPCS: 99283

== ENCOUNTER 2024-02-02 01:34 | Emergency (ER) | payer MEDICAID, SELFPAY ==
[2024-02-02] VITALS (7 sets, daily range): BP systolic 120–154; BP diastolic 51–91; PULSE 62–103; RESP 16–20; TEMP 36.7; O2SAT 98–100; BMI 34.3
--- NOTE | 2024-02-02 01:45 | CT_ITS ---
PROCEDURE INFORMATION: Exam: CT Abdomen And Pelvis Without Contrast Exam date and time: 02/02/2024 1:55 AM Age: 24 years old Clinical indication: Abdominal pain; Flank; Left; Additional info: Severe left flank pain, recent vaginal delivery TECHNIQUE: Imaging protocol: Computed tomography of the abdomen and pelvis without contrast. Radiation optimization: All CT scans at this facility use at least one of these dose optimization techniques: automated exposure control; mA and/or kV adjustment per patient size (includes targeted exams where dose is matched to clinical indication); or iterative reconstruction. COMPARISON: CT ABDOMEN PELVIS W CON 12/12/2022 10:28 PM FINDINGS: Liver: Normal. No mass. Gallbladder and bile ducts: Normal. No calcified stones. No ductal dilation. Pancreas: Normal. No ductal dilation. Spleen: Normal. No splenomegaly. Adrenal glands: Normal. No mass. Kidneys and ureters: There is a 6 mm stone in the distal left ureter with moderate left-sided hydroureter, hydronephrosis and perinephric edema. Stomach and bowel: Unremarkable. No obstruction. No mucosal thickening. Appendix: No evidence of appendicitis. Intraperitoneal space: Unremarkable. No free air. No significant fluid collection. Vasculature: Unremarkable. No abdominal aortic aneurysm. Lymph nodes: Unremarkable. No enlarged lymph nodes. Urinary bladder: Unremarkable as visualized. Reproductive: Prominent size uterus with mildly distended endometrium likely containing blood products. Bones/joints: Unremarkable. No acute fracture. Soft tissues: Unremarkable. IMPRESSION: 1. 6 mm stone in the distal left ureter with moderate left-sided hydroureter, hydronephrosis and perinephric edema. 2. Prominent size uterus with mildly distended endometrium likely containing blood products.
--- NOTE | 2024-02-02 01:46 | HMH.EDGENADL ---
Discharge Plan Disposition Patient Disposition: Home, Self-Care Condition: Good Prescriptions Prescriptions: New oxycodone 5 mg tablet 5 mg PO Q8H PRN (Reason: pain) Qty: 12 0RF ketorolac 10 mg tablet 10 mg PO Q8H PRN (Reason: pain) 1 Days Qty: 20 0RF ondansetron 4 mg tablet,disintegrating 4 mg PO Q8H PRN (Reason: nausea and vomiting) 4 Days Qty: 12 0RF tamsulosin [Flomax] 0.4 mg capsule 0.4 mg PO HS Qty: 7 0RF No Action gjwsjysnvyephnr-fcicbtkxw-DY [Bromfed DM] 2-30-10 mg/5 mL syrup 5 ml PO Q4-6H PRN (Reason: cold symptoms) Qty: 118 0RF Referrals Follow up/Referrals: Curtis Cordoba MD [Staff Physician] - See instructions Provider,MD Brett [Primary Care Provider] - See instructions Activity Restrictions/Add. Instructions Additional Instructions/Restrictions: You were evaluated in the emergency department today. At this time, you were diagnosed with a kidney stone on the left. Your stone is 6 mm. It may or may not pass on its own. We are prescribing you medications to treat your pain, including oxycodone, which is a narcotic pain medication. Do not drive or operate heavy machinery while taking narcotic pain medications. We are also prescribing you Toradol, which works similarly to ibuprofen, so do not take ibuprofen while taking this. You may take Tylenol every 4 hours in addition to these medications. I have prescribed you Zofran to take as needed for nausea and vomiting, as well as Flomax to help expel the stone. I recommend very close follow-up with urology in case you need procedure to help remove the stone, such as stenting or lithotripsy. I have provided you with information for Dr. Cordoba, who is a local urologist, or you may seek evaluation wherever you prefer. If you experience fever greater than 100.4 ?F, significant worsening in pain, intractable nausea and vomiting, or other new concerns, please return to the emergency department right away. Clinical Impressions Clinical Impression: Ureterolithiasis Instructions Patient Instructions: DI for Kidney Stones Discharge ED Provider: Mai Cruz General Adult HPI General Chief complaint: PAIN Stated complaint: severe back pain Time Seen by Provider: 02/02/24 01:42 History of Present Illness HPI narrative: This patient is a 24-year-old female with recent vaginal delivery on 01/30/2024 presenting to the emergency department for evaluation with concern for severe left flank pain. Patient states that the left leg pain started several hours ago. She notes she has taken Tylenol and ibuprofen as well as use IcyHot at home, however nothing is making the pain better. She states that the severe throbbing pain that is not positional and does not change with any movements. She also notes that she has had some dysuria. She notes that her vaginal delivery was uncomplicated with the exception of her uterus and not being firm enough, but she states that that resolved with massage and that she was told that it was fine to go home. Since going home, she has had no significant increase in vaginal discharge, bleeding, or other concerns. No foul-smelling discharge, fevers, chills, vomiting, or other concerns. No changes in bowel movements. No chest pain, shortness of breath, or other issues. She is not currently breast-feeding. Related Data Previous Rx's Medication Instructions Recorded zofguzxpjgcliod-teotypzaqfpemhj-RZ 5 ml PO Q4-6H PRN cold symptoms 12/28/23 2 mg-30 mg-10 mg/5 mL oral syrup #118 mL (Bromfed DM) ketorolac 10 mg tablet 10 mg PO Q8H PRN pain 1 day #20 02/02/24 tabs ondansetron 4 mg disintegrating 4 mg PO Q8H PRN nausea and 02/02/24 tablet vomiting 4 days #12 tabs oxycodone 5 mg tablet 5 mg PO Q8H PRN pain #12 tabs 02/02/24 tamsulosin 0.4 mg capsule (Flomax) 0.4 mg PO HS #7 caps 02/02/24 Allergies Allergy/AdvReac Type Severity Reaction Status Date / Time No Known Allergies Allergy Verified 12/28/23 13:33 [facility] Disclaimer: The information contained in this section may have been updated after the patient was seen, as this information can be updated by other users. Medical History Depression Anxiety Surgical History History of cholecystectomy History of appendectomy Social History Smoking Status: Never smoker alcohol intake: never substance use type: denies use current occupational status: employed Travel in the last 8 weeks: None household members: none housing: other ROS Obtained: Yes All systems reviewed & no additional complaints except as documented Physical Exam General General appearance: alert and anxious Comment: Very uncomfortable appearing. Head Head exam: atraumatic and normocephalic Eye Eye exam: Present normal appearance, PERRL and EOMI ENT ENT exam: Present normal exam, normal oropharynx, mucous membranes moist and normal external ear exam Neck Neck exam: Present normal inspection, full ROM and trachea midline; Absent tenderness Chest Chest inspection: Present normal inspection and symmetric chest wall rise; Absent tenderness Respiratory Respiratory exam: Present normal lung sounds bilaterally; Absent respiratory distress, wheezes, stridor or accessory muscle use Cardiovascular Cardiovascular exam: Present normal rhythm and tachycardia Abdominal Exam Abdominal exam: Present soft; Absent distention, tenderness or guarding Extremities Exam Extremities exam: Present normal inspection, full ROM and normal capillary refill; Absent tenderness or edema Back Exam Back exam: Present full ROM and CVA tenderness (L); Absent paraspinal tenderness or vertebral tenderness Neurological Exam Neurological exam: Present alert, oriented X3, CN II-XII intact and normal gait; Absent motor sensory deficit Psychiatric Psychiatric exam: Present anxious Skin Skin exam: Present warm and dry Medical Decision Making Medical Records Medical records reviewed: Yes I reviewed the patient's medical records. Rafa Inquiry Pt receiving controlled substance: Yes Rafa was queried for this patient: Yes Risks and benefits of using a controlled substance: were discussed with pt by me Vital Signs: 02/02/24 01:35 02/02/24 03:01 02/02/24 03:31 Temperature 98.1 F Temperature Source Oral Pulse Rate 79 76 Pulse Rate [Right Brachial] 103 H Respiratory Rate 20 Blood Pressure 120/51 L 154/91 H Blood Pressure [Right Arm] 142/84 H Blood Pressure Mean 80 104 Blood Pressure Mean [Right Arm] 103 02 Sat by Pulse Oximetry 100 98 100 Oxygen Delivery Method Room Air 02/02/24 04:00 02/02/24 05:14 02/02/24 05:30 Temperature Temperature Source Pulse Rate 76 65 67 Pulse Rate [Right Brachial] Respiratory Rate Blood Pressure 139/82 143/79 H 148/86 H Blood Pressure [Right Arm] Blood Pressure Mean 97 101 103 Blood Pressure Mean [Right Arm] 02 Sat by Pulse Oximetry 100 99 98 Oxygen Delivery Method Room Air Room Air Lab Data Lab results reviewed: Yes I reviewed the patient's lab results. Lab Results 02/02/24 02:15: WBC 7.7, RBC 3.29 L, Hgb 9.3 L, Hct 29.0 L, MCV 88.3, MCH 28.2, MCHC 32.0, RDW 14.7, Plt Count 262, MPV 10.5 H, Neut % (Auto) 70.0, Lymph % (Auto) 22.0, Bremer % (Auto) 5.7, Eos % (Auto) 1.8, Baso % (Auto) 0.6, Neut # (Auto) 5.4, Lymph # (Auto) 1.7, Bremer # (Auto) 0.4, Eos # (Auto) 0.1, Baso # (Auto) 0.1, Sodium 136, Potassium 3.5, Chloride 105, Carbon Dioxide 27, Anion Gap 7.5, BUN 9, Creatinine 0.50 L, Estimated Creat Clear 244, Estimated GFR 149, Est GFR ( Amer) 180, Glucose 93, Calcium 9.2, Total Bilirubin 0.3, AST 27, ALT 16, Alkaline Phosphatase 133 H, Total Protein 6.5, Albumin 3.3 L, Globulin 3.2, Albumin/Globulin Ratio 1.0 L 02/02/24 02:50: Urine Color Yellow, Urine Appearance Sl cloudy, Urine pH 6.5, Ur Specific Folcroft 1.020, Urine Protein Negative, Urine Glucose (UA) Negative, Urine Ketones Negative, Urine Blood 3+, Urine Nitrate Negative, Urine Bilirubin Negative, Urine Urobilinogen 0.2, Ur Leukocyte Esterase 1+ A, Urine RBC 20-50, Urine WBC 5-10, Urine Bacteria 1+ 02/02/24 02:15 02/02/24 02:15 Orders (Tests/Meds): ED MEDICATIONS Discontinued Medications Generic Name Dose Route Start Last Admin Trade Name Freq PRN Reason Stop Dose Admin Acetaminophen 1,000 mg 02/02/24 04:37 02/02/24 04:51 Acetaminophen 500mg Tab PO 02/02/24 04:38 1,000 mg ONCE ONE Administration Lactated Ringer's 1,000 mls @ 999 mls/hr 02/02/24 01:43 02/02/24 02:07 Lactated Ringer's 1000 Ml Bag IV 02/02/24 02:43 999 mls/hr .Q1H1M ONE Administration Lactated Ringer's 1,000 mls @ 999 mls/hr 02/02/24 04:37 02/02/24 04:51 Lactated Ringer's 1000 Ml Bag IV 02/02/24 05:37 999 mls/hr .Q1H1M ONE Administration Ketorolac Tromethamine 15 mg 02/02/24 01:43 02/02/24 02:07 Ketorolac 30mg/Ml Vial IV 02/02/24 01:44 15 mg ONCE ONE Administration Ketorolac Tromethamine 15 mg 02/02/24 04:37 02/02/24 04:50 Ketorolac 30mg/Ml Vial IV 02/02/24 04:38 15 mg ONCE ONE Administration Morphine Sulfate 4 mg 02/02/24 01:43 Morphine 4mg/Ml Syringe IV 02/02/24 01:44 ONCE ONE Ondansetron HCl 4 mg 02/02/24 01:43 02/02/24 02:07 Ondansetron 4mg/2ml Vial IV 02/02/24 01:44 4 mg ONCE ONE Administration Oxycodone HCl 10 mg 02/02/24 05:23 02/02/24 05:31 Oxycodone 5mg Immediate Release Tablet PO 02/02/24 05:24 10 mg ONCE ONE Administration Tamsulosin HCl 0.4 mg 02/02/24 04:38 02/02/24 04:51 Tamsulosin 0.4mg Capsule PO 02/02/24 04:39 0.4 mg ONCE ONE Administration ORDERS Category Date Time Status CT abdomen pelvis wo con Stat Cat Scan 02/02/24 01:45 Completed Complete Blood Count Auto Diff Stat Lab 02/02/24 02:15 Completed Comprehensive Metabolic Panel Stat Lab 02/02/24 02:15 Completed UA [Urinalysis and Microscopic] Stat Lab 02/02/24 02:50 Completed Urine Culture(cathed specimen) Stat Micro 02/02/24 02:50 Received Medical Decision Narrative: In summary, this patient is a 24-year-old female presenting to the Emergency Department for evaluation of severe left flank pain as well as dysuria. She did have a recent vaginal delivery approximately 4 days ago. Differential diagnoses considered include but are not limited to ureterolithiasis, pyelonephritis, colitis, constipation, musculoskeletal pain. Ruling out the most morbid conditions drove assessment. On exam, the patient is very uncomfortable appearing with left-sided CVA tenderness. Otherwise, abdominal exam is benign with no focal tenderness. Patient does not have any significant change in vaginal discharge, fevers, or other concern to suggest that this is related to her recent vaginal delivery, however this does increase the patient's risk for morbidity. Workup included CBC, CMP, urinalysis, urine culture, and CT abdomen pelvis without IV contrast. Given that the patient is currently having vaginal bleeding, advised that it would be best to obtain a catheterized urine specimen. Patient was given a bolus of IV fluids as well as IV Toradol, morphine, and Zofran for symptomatic improvement. I independently interpreted CT scan prior to the radiologist read and noted L distal ureterolithiasis. Please see their read for final interpretation. They note stone is 6mm. Labs were obtained that demonstrated no significant leukocytosis and normal creatinine. Patient did not consent to catheterized urine specimen, as she did not want to experience the discomfort. Given this, we are unable to obtain a sterile urine specimen given her significant vaginal bleeding after delivery. Urine does have leukocytes, but it is nitrate negative. She is afebrile with normal vital signs. At this time, feel that there is a very low likelihood of infected stone, though I cannot definitively exclude without a sterile urine specimen. The fact that the urine is nitrate negative, she is afebrile, and she has no significant leukocytosis are all reassuring. She is feeling a lot better on reassessment after administration of Toradol above. She declines need for morphine. I had a very long discussion with her regarding these findings and the fact that I could not definitively exclude infected stone without the sterile urine specimen, and I did explain to her that infected stones are reason for emergent urologic evaluation as they are high risk for sepsis. I also advised to her that I am unsure if this stone will pass on its own given its size, however it is distal. She expressed understanding and agreement. We do not have urology here. After being offered transfer for urology evaluation, she noted she would prefer trying to go home to see if she can pass the stone on her own. Given this, she was given a second bolus of IV fluids as well as oral Flomax, IV Toradol, oral oxycodone, and oral Tylenol for further symptomatic improvement. If she still would like to go home, will plan to proceed with patient directed discharge and close follow-up outpatient. On reassessment, patient states the pain has improved and is now just a dull ache. I advised to her again that I would be happy to transfer her for urology evaluation, however she advised that she would rather try going home. Given this, she was discharged home with very strict return precautions, prescription for oxycodone, Zofran, Toradol, and Flomax, and instructions for follow-up with urology. She was discharged after all questions were answered. A ride came to get her so that she did not drive while under the influence of narcotic pain medication. Critical Care Critical Care Time Critical Care Time: No
[2024-02-02] MEDS: ONDANSETRON 4MG/2ML VIAL 4 MG IV (02:07)
[2024-02-02] MEDS: KETOROLAC 30MG/ML VIAL 15 MG IV ×2 (02:07→04:50)
[2024-02-02] MEDS: LACTATED RINGERS 1000ML 1,000 ML 999 ML IV ×2 (02:07→04:51)
[2024-02-02 02:26] LABS: Basophils # 0.1 K/mm3 (0-0.2); Basophils % 0.6 % (0.1-2.0); Eosinophils # 0.1 K/mm3 (0.0-0.4); Eosinophils % 1.8 % (0.1-12.0); Hemoglobin 9.3 g/dL (12.2-16.2); Lymphocytes # 1.7 K/mm3 (0.7-4.5); Mean Corpuscular Hemoglobin 28.2 pg (27.0-31.2); Mean Corpuscular Volume 88.3 fl (81-99); Mean Platelet Volume 10.5 fl (7.4-10.4); Monocytes # 0.4 K/mm3 (0.1-1.0); Monocytes % 5.7 % (1.7-9.3); Neutrophils # 5.4 K/mm3 (1.8-7.8); Platelet Count 262 K/mm3 (142-424); Red Blood Count 3.29 M/mm3 (4.20-5.40); Red Cell Distribution Width 14.7 % (11.5-17.5); White Blood Count 7.7 K/mm3 (4.8-10.8)
[2024-02-02 02:30] LABS: Chloride 105 mmol/L (98-107)
[2024-02-02 02:31] LABS: Potassium 3.5 mmoL/L (3.5-5.1); Sodium 136 mmol/L (136-145)
[2024-02-02 02:33] LABS: Alanine Aminotransferase 16 U/L (12-78); Alkaline Phosphatase 133 U/L (38-126); Aspartate Amino Transferase 27 U/L (14-36); Bilirubin,Total 0.3 mg/dl (0.2-1.3); Blood Urea Nitrogen 9 mg/dl (7-17); Creatinine Clearance Estimated 244 mL/min (50-200); Estimated Glomerular Filt Rate 149 ml/min (>60); GFR (African American) 180 ML/MIN (>60)
[2024-02-02 02:34] LABS: Albumin Level 3.3 g/dl (3.5-5.0); Anion Gap 7.5 mEq/L (5-15); Calcium 9.2 mg/dl (8.4-10.2); Carbon Dioxide 27 mmol/L (22.0-30.0); Globulin 3.2 g/dL (1.3-3.2); Glucose 93 mg/dl (74-100); Total Protein,Serum 6.5 g/dl (6.3-8.2)
[2024-02-02 02:57] LABS: Appearance,Urine SL CLOUDY (Clear); Bilirubin,Urine Negative (Negative); Blood, Urine 3+ (Negative); Color,Urine YELLOW (Yellow); Glucose,Urine (UA) Negative (Negative); Ketones,Urine Negative (Negative); Leukocyte Esterase,Urine 1+ (Negative); Microscopic, Urine URINE MICROSCOPIC (MICROSCOPIC); Nitrate,Urine Negative (Negative); PH,Urine 6.5 (5.0-8.5); Protein,Urine Negative (Negative); Urobilinogen,Urine 0.2 EU/dl (0.2)
[2024-02-02 03:09] LABS: Bacteria,Urine 1+ /lpf; RBC,Urine 20-50 #/hpf (0-3)
--- NOTE | 2024-02-02 04:05 | PC.NURSE ---
called radiology to check on update on reads
[2024-02-02] MEDS: ACETAMINOPHEN 500MG TAB 1000 MG PO (04:51)
[2024-02-02] MEDS: TAMSULOSIN 0.4MG CAPSULE 0.400000000000000022 MG PO (04:51)
[2024-02-02] MEDS: OXYCODONE 5MG IMMEDIATE RELEASE TABLET 10 MG PO (05:31)
== END 2024-02-02 06:50 | disposition home or self-care (01) ==
PROVIDERS: Emergency Provider Emergency Medicine
DX: O99.893 Other specified diseases and conditions complicating puerperium (principal); N13.0 Hydronephrosis with ureteropelvic junction obstruction; N13.4 Hydroureter; R10.32 Left lower quadrant pain; M54.59 Other low back pain; R30.0 Dysuria
CPT/HCPCS: 74176; 80053; 81001; 85025; 87086; 96361; 96374; 96375; 96376; 99285; J2405

== ENCOUNTER 2024-02-11 13:03 | Emergency (ER) | payer MEDICAID, SELFPAY ==
[2024-02-11 13:05] VITALS: BP 137/84; PULSE 77; RESP 20; TEMP 36.9; O2SAT 97; BMI 34.3
[2024-02-11 13:31] VITALS: BMI 34.3
[2024-02-11 13:36] LABS: Appearance,Urine CLEAR (Clear); Bilirubin,Urine Negative (Negative); Blood, Urine TRACE-I (Negative); Color,Urine YELLOW (Yellow); Glucose,Urine (UA) Negative (Negative); Ketones,Urine Negative (Negative); Leukocyte Esterase,Urine Negative (Negative); Microscopic, Urine URINE MICROSCOPIC (MICROSCOPIC); Nitrate,Urine Negative (Negative); Protein,Urine Negative (Negative); Specific Gravity, Urine <= 1.005 (1.005-1.030); Urobilinogen,Urine 0.2 EU/dl (0.2)
[2024-02-11 13:41] LABS: Chloride 104 mmol/L (98-107); Sodium 139 mmol/L (136-145)
[2024-02-11 13:43] LABS: Blood Urea Nitrogen 12 mg/dl (7-17); Creatinine Clearance Estimated 153 mL/min (50-200); Estimated Glomerular Filt Rate 87 ml/min (>60); GFR (African American) 105 ML/MIN (>60)
[2024-02-11 13:44] LABS: Alanine Aminotransferase 22 U/L (12-78); Albumin Level 4.1 g/dl (3.5-5.0); Albumin/Globulin Ratio 1.1 (1.1-1.8); Alkaline Phosphatase 101 U/L (38-126); Aspartate Amino Transferase 30 U/L (14-36); Bilirubin,Total 0.5 mg/dl (0.2-1.3); Calcium 9.6 mg/dl (8.4-10.2); Carbon Dioxide 26 mmol/L (22.0-30.0); Globulin 3.9 g/dL (1.3-3.2); Glucose 95 mg/dl (74-100)
[2024-02-11 13:55] LABS: Bacteria,Urine Trace /lpf; Squamous Epithelial Cell,Urine Occasional #/hpf (0-5); WBC,Urine Occasional #/hpf (0-3)
[2024-02-11 13:56] LABS: Basophils % 0.3 % (0.1-2.0); Eosinophils # 0.1 K/mm3 (0.0-0.4); Eosinophils % 1.8 % (0.1-12.0); Hematocrit 34.8 % (37.0-47.0); Hemoglobin 11.2 g/dL (12.2-16.2); Lymphocytes # 1.6 K/mm3 (0.7-4.5); Lymphocytes % 24.5 % (10-50); Mean Corpuscular HGB Conc 32.2 g/dL (31.8-35.4); Mean Corpuscular Hemoglobin 28.1 pg (27.0-31.2); Mean Corpuscular Volume 87.1 fl (81-99); Mean Platelet Volume 9.2 fl (7.4-10.4); Monocytes # 0.3 K/mm3 (0.1-1.0); Monocytes % 4.6 % (1.7-9.3); Neutrophils # 4.6 K/mm3 (1.8-7.8); Neutrophils % 68.8 % (37.0-80.0); Platelet Count 386 K/mm3 (142-424); Red Blood Count 3.99 M/mm3 (4.20-5.40); Red Cell Distribution Width 14.3 % (11.5-17.5); White Blood Count 6.6 K/mm3 (4.8-10.8)
[2024-02-11 14:07] VITALS: BP 114/59; PULSE 67; RESP 22; O2SAT 97
--- NOTE | 2024-02-11 14:11 | PC.NURSE ---
RED[facility] AT BEDSIDE
--- NOTE | 2024-02-11 14:20 | ED_ITS ---
<Statement entered by Jevon Carrasco MD - 02/12/24 07:14> I was consulted by the SAM, and we discussed the complexity of the problems being addressed. I approved the treatment and management plan for this patient's care in the emergency department, thus performing a substantive portion of the medical decision making. Jevon Carrasco MD, DEVORAH, FACEP Discharge Plan Disposition Patient Disposition: Home, Self-Care Condition: Good Prescriptions Prescriptions: New ondansetron 4 mg tablet,disintegrating 4 mg PO Q8H PRN (Reason: nausea and vomiting) 4 Days Qty: 12 0RF tamsulosin 0.4 mg capsule 0.4 mg PO DAILY Qty: 10 0RF oxycodone 5 mg tablet 5 mg PO Q8H PRN (Reason: pain (scale score 7-10)) Qty: 12 0RF No Action ujzcmigiexubbik-gnezkipgh-LB [Bromfed DM] 2-30-10 mg/5 mL syrup 5 ml PO Q4-6H PRN (Reason: cold symptoms) Qty: 118 0RF oxycodone 5 mg tablet 5 mg PO Q8H PRN (Reason: pain) Qty: 12 0RF ketorolac 10 mg tablet 10 mg PO Q8H PRN (Reason: pain) 1 Days Qty: 20 0RF ondansetron 4 mg tablet,disintegrating 4 mg PO Q8H PRN (Reason: nausea and vomiting) 4 Days Qty: 12 0RF tamsulosin [Flomax] 0.4 mg capsule 0.4 mg PO HS Qty: 7 0RF Referrals Follow up/Referrals: Tatum Steinberg PA [Primary Care Provider] - See instructions Curtis Cordoba MD [Staff Physician] - See instructions Activity Restrictions/Add. Instructions Additional Instructions/Restrictions: I referred you to Dr. Cordoba urology. Please return to the ER for any worsening nausea vomiting inability to tolerate oral intake fever chills as needed. Clinical Impressions Clinical Impression: Ureterolithiasis Instructions Patient Instructions: DI for Acute Abdominal Pain Discharge ED Provider: Jevon Carrasco General Adult HPI General Chief complaint: Abdominal Pain Stated complaint: back pain frequent urination Time Seen by Provider: 02/11/24 14:08 Mode of Arrival: Ambulatory Source of Information: Patient Limitations: No Limitations Description of Symptoms (Recalled from ER Triage Doc. by RN): pt is here today for left flank pain that radiates into groin, pt was told a few weeks ago at this facility that she has a kidney stone on that side about 6mm. pt took a toradol pill at home at 1230 before coming to ER History of Present Illness HPI narrative: Patient presents for evaluation of left flank pain. Patient presents with 3- week history of being diagnosed with a kidney stone on the left that was 6 mm. Patient does not believe that she ever passed the stone. Patient states that her pain however had abated until the last couple of days and the flank pain has returned. Patient states that is in the left flank radiates down to her groin. Patient took Toradol before arrival. Patient denies dysuria chest pain shortness of breath fever chills hemoptysis hematochezia melena vomiting or diarrhea but does endorse nausea when the pain is bad. Related Data Previous Rx's Medication Instructions Recorded efvxjfmdalwbrib-uewjvagqliuifmo-RO 5 ml PO Q4-6H PRN cold symptoms 12/28/23 2 mg-30 mg-10 mg/5 mL oral syrup #118 mL (Bromfed DM) ketorolac 10 mg tablet 10 mg PO Q8H PRN pain 1 day #20 02/02/24 tabs ondansetron 4 mg disintegrating 4 mg PO Q8H PRN nausea and 02/02/24 tablet vomiting 4 days #12 tabs oxycodone 5 mg tablet 5 mg PO Q8H PRN pain #12 tabs 02/02/24 tamsulosin 0.4 mg capsule (Flomax) 0.4 mg PO HS #7 caps 02/02/24 ondansetron 4 mg disintegrating 4 mg PO Q8H PRN nausea and 02/11/24 tablet vomiting 4 days #12 tabs oxycodone 5 mg tablet 5 mg PO Q8H PRN pain (scale score 02/11/24 7-10) #12 tabs tamsulosin 0.4 mg capsule 0.4 mg PO DAILY kidney stone #10 02/11/24 caps Allergies Allergy/AdvReac Type Severity Reaction Status Date / Time No Known Allergies Allergy Verified 12/28/23 13:33 PFSH PFS Disclaimer: The information contained in this section may have been updated after the patient was seen, as this information can be updated by other users. Medical History Depression Anxiety Surgical History History of cholecystectomy History of appendectomy Social History Smoking Status: Never smoker alcohol intake: never substance use type: denies use current occupational status: employed Travel in the last 8 weeks: None household members: none housing: other ROS Obtained: Yes Systems reviewed as appropriate & no additional complaints except as documented Physical Exam General General appearance: alert and in no apparent distress Respiratory Respiratory exam: Present normal lung sounds bilaterally Cardiovascular Cardiovascular exam: Present regular rate and normal rhythm Abdominal Exam Abdominal exam: Present soft, tenderness and normal bowel sounds; Absent guarding, rebound or rigidity Back Exam Back exam: Present normal inspection, full ROM and CVA tenderness (L) Neurological Exam Neurological exam: Present alert and oriented X3 Medical Decision Making Medical Records Medical records reviewed: Yes I reviewed the patient's medical records. Rafa Inquiry Pt receiving controlled substance: No Vital Signs: 02/11/24 13:05 02/11/24 14:07 02/11/24 14:30 Temperature 98.4 F Temperature Source Oral Pulse Rate 67 64 Pulse Rate [Left Radial] 77 Respiratory Rate 20 22 20 Blood Pressure 114/59 L 117/69 Blood Pressure [Right Arm] 137/84 Blood Pressure Mean [Right Arm] 101 Blood Pressure Position Sitting Sitting 02 Sat by Pulse Oximetry 97 97 96 Oxygen Delivery Method Room Air 02/11/24 15:00 02/11/24 15:32 Temperature Temperature Source Pulse Rate 60 61 Pulse Rate [Left Radial] Respiratory Rate 20 20 Blood Pressure 117/74 117/80 Blood Pressure [Right Arm] Blood Pressure Mean [Right Arm] Blood Pressure Position Sitting Sitting 02 Sat by Pulse Oximetry 97 97 Oxygen Delivery Method Room Air Room Air Lab Data Lab results reviewed: Yes I reviewed the patient's lab results. Lab Results 02/11/24 13:29: WBC 6.6, RBC 3.99 L, Hgb 11.2 L, Hct 34.8 L, MCV 87.1, MCH 28.1, MCHC 32.2, RDW 14.3, Plt Count 386, MPV 9.2, Neut % (Auto) 68.8, Lymph % (Auto) 24.5, [place] % (Auto) 4.6, Eos % (Auto) 1.8, Baso % (Auto) 0.3, Neut # (Auto) 4.6, Lymph # (Auto) 1.6, [place] # (Auto) 0.3, Eos # (Auto) 0.1, Baso # (Auto) 0.0, Sodium 139, Potassium 4.0, Chloride 104, Carbon Dioxide 26, Anion Gap 13.0, BUN 12, Creatinine 0.80, Estimated Creat Clear 153, Estimated GFR 87, Est GFR ( Amer) 105, Glucose 95, Calcium 9.6, Total Bilirubin 0.5, AST 30, ALT 22, Alkaline Phosphatase 101, Total Protein 8.0, Albumin 4.1, Globulin 3.9 H, Albumin/Globulin Ratio 1.1, Urine Color Yellow, Urine Appearance Clear, Urine pH 6.0, Ur Specific [place] <= 1.005, Urine Protein Negative, Urine Glucose (UA) Negative, Urine Ketones Negative, Urine Blood Trace-i, Urine Nitrate Negative, Urine Bilirubin Negative, Urine Urobilinogen 0.2, Ur Leukocyte Esterase Negative, Urine RBC None, Urine WBC Occasional, Ur Squamous Epith Cells Occasional, Urine Bacteria Trace, Urine HCG, Qual Negative 02/11/24 13:29 02/11/24 13:29 Orders (Tests/Meds): ED MEDICATIONS Discontinued Medications Generic Name Dose Route Start Last Admin Trade Name Freq PRN Reason Stop Dose Admin Acetaminophen 1,000 mg 02/11/24 14:21 02/11/24 14:39 Acetaminophen 1,000mg/100ml Vial IV 02/11/24 14:22 1,000 mg ONCE ONE Administration Lactated Ringer's 1,000 mls @ 999 mls/hr 02/11/24 14:21 02/11/24 14:39 Lactated Ringer's 1000 Ml Bag IV 02/11/24 15:21 999 mls/hr .Q1H1M ONE Administration Iopamidol 75 ml 02/11/24 14:55 02/11/24 14:57 Iopamidol-370 (76%);100ml Bottle IV 02/11/24 14:56 75 ml ONCE ONE Administration Ketorolac Tromethamine 15 mg 02/11/24 14:21 02/11/24 14:39 Ketorolac 30mg/Ml Vial IV 02/11/24 14:22 15 mg ONCE ONE Administration Sodium Chloride 10 ml 02/11/24 14:55 02/11/24 14:57 Sodium Chloride 0.9% 10ml Syr (Rad Only) IV 02/11/24 14:56 10 ml ONCE ONE Administration ORDERS Category Date Time Status CT abdomen pelvis w con Stat Cat Scan 02/11/24 14:21 Completed Complete Blood Count Auto Diff Stat Lab 02/11/24 13:29 Completed Comprehensive Metabolic Panel Stat Lab 02/11/24 13:29 Completed UA [Urinalysis and Microscopic] Stat Lab 02/11/24 13:29 Completed Urine , HCG Qual. Stat Lab 02/11/24 13:29 Completed Medical Decision Narrative: In summary patient is a 24-year-old female who presents to the emergency department for evaluation of left flank pain. Patient is hemodynamically stable upon arrival, afebrile. Physical exam is remarkable for left flank tenderness to percussion and mild diffuse left-sided abdominal pain on palpation. Differential diagnosis includes complicated urinary tract infection, ureterolithiasis, diverticulitis, bowel obstruction, pyelonephritis etc. Initial workup will be conducted with hematologic labs CT scan abdomen pelvis. Initial interventions include fluid bolus Toradol Tylenol. Initial workup reviewed by me shows that her hematologic labs are nonactionable urinalysis is bland and my informal review of her CT scan of the abdomen pelvis shows left hydroureteronephrosis with an obstructing stone at the proximal location of the UVJ. Upon repeat evaluation patient did have acceptable resolution of her moderate discomfort. Given this patient is appropriate for discharge with referral to urology and a prescription for pain medications. Patient already has Toradol which I recommend she continue. Will also call in a prescription for tamsulosin. Critical Care Critical Care Time Critical Care Time: No
--- NOTE | 2024-02-11 14:21 | CT_ITS ---
PROCEDURE INFORMATION: Exam: CT Abdomen And Pelvis With Contrast Exam date and time: 02/11/2024 2:57 PM Age: 24 years old Clinical indication: Abdominal pain; Flank; Left; Additional info: Left flank pain TECHNIQUE: Imaging protocol: Computed tomography of the abdomen and pelvis with contrast. Radiation optimization: All CT scans at this facility use at least one of these dose optimization techniques: automated exposure control; mA and/or kV adjustment per patient size (includes targeted exams where dose is matched to clinical indication); or iterative reconstruction. Contrast material: ISOVUE; Contrast volume: 75 ml; Contrast route: IV; COMPARISON: CT ABDOMEN PELVIS WO CON 02/02/2024 1:55 AM FINDINGS: Lungs: Lung bases are clear as visualized. Heart: Base of heart is unremarkable as visualized. Liver: Normal. No mass. Gallbladder and bile ducts: Status post cholecystectomy. Pancreas: Normal. No ductal dilation. Spleen: Nonspecific heterogeneous enhancement of the spleen. Adrenal glands: Normal. No mass. Kidneys and ureters: Left moderate hydronephrosis. Punctate nonobstructive left nephroliths in the lower posterior calyx. Slight left delayed contrast enhancement of the renal cortex. Left moderate to severe ureterectasis. At the left ureterovesicular junction there is a 4 mm calcified stone. Again demonstrated is left perinephric edema. Stomach and bowel: Unremarkable. No obstruction. No mucosal thickening. Appendix: No evidence of appendicitis. Intraperitoneal space: Unremarkable. No free air. No significant fluid collection. Vasculature: Unremarkable. No abdominal aortic aneurysm. Lymph nodes: Unremarkable. No enlarged lymph nodes. Urinary bladder: Unremarkable as visualized. Reproductive: Residual changes of the uterus. Bones/joints: Unremarkable. No acute fracture. Soft tissues: Unremarkable. IMPRESSION: Obstructing left distal renal stone which is now present at the left ureterovesicular junction. Superimposed infection cannot be ruled out. Further details as above.
[2024-02-11 14:30] VITALS: BP 117/69; PULSE 64; RESP 20; O2SAT 96
[2024-02-11] MEDS: LACTATED RINGERS 1000ML 1,000 ML 999 ML IV (14:39)
[2024-02-11] MEDS: ACETAMINOPHEN 1,000MG/100ML VIAL 1000 MG IV (14:39)
[2024-02-11] MEDS: KETOROLAC 30MG/ML VIAL 15 MG IV (14:39)
[2024-02-11 14:44] LABS: Urine Pregnancy, HCG Qual. Negative (Negative)
--- NOTE | 2024-02-11 14:53 | PC.NURSE ---
PT to CT by WC at this time
[2024-02-11] MEDS: IOPAMIDOL-370 (76%);100ML BOTTLE 75 ML IV (14:57)
[2024-02-11] MEDS: SODIUM CHLORIDE 0.9% 10ML SYR (RAD ONLY) 10 ML IV (14:57)
[2024-02-11 15:00] VITALS: BP 117/74; PULSE 60; RESP 20; O2SAT 97
--- NOTE | 2024-02-11 15:00 | PC.NURSE ---
PT RETURNED FROM CT
[2024-02-11 15:32] VITALS: BP 117/80; PULSE 61; RESP 20; O2SAT 97
[2024-02-11 16:14] VITALS: BP 133/72; PULSE 56; RESP 20; TEMP 37.1; O2SAT 98
== END 2024-02-11 16:16 | disposition home or self-care (01) ==
PROVIDERS: Physician Assistant; Emergency Provider Student in an Organized Health Care Education/Training Program; PCP Physician Assistant
DX: N20.1 Calculus of ureter (principal); M54.59 Other low back pain; R10.32 Left lower quadrant pain
CPT/HCPCS: 74177; 80053; 81001; 81025; 85025; 96361; 96374; 96375; 99284; J0131; Q9967

== ENCOUNTER 2024-05-13 08:49 | Emergency (ER) | payer MEDICAID, SELFPAY ==
[2024-05-13 08:55] VITALS: BP 136/68; PULSE 77; RESP 18; TEMP 36.7; O2SAT 96; BMI 34.7
--- NOTE | 2024-05-13 09:00 | EXP.UTC ---
Discharge Plan Disposition Patient Disposition: Home, Self-Care Condition: Good Prescriptions Prescriptions: New azithromycin [Zithromax] 250 mg tablet 250 mg PO UD DOSE PK Qty: 6 0RF Rx Instructions: Take two (2) tablets today, then one (1) tablet days #2 thru #5 yrkuhibcqpwvcsy-scdqaprte-DB [Bromfed DM] 2-30-10 mg/5 mL Syrup 5 ml PO Q6H PRN (Reason: Cough) Qty: 240 0RF Referrals Follow up/Referrals: Tatum Steinberg PA [Primary Care Provider] - See instructions Activity Restrictions/Add. Instructions Additional Instructions/Restrictions: Drink plenty of fluids. Take tylenol or ibuprofen for pain or fever. Take the medications as directed. Follow up with your regular doctor. GO TO THE ER FOR ANY WORSENING SYMPTOMS Clinical Impressions Clinical Impression: Bronchitis, Acute viral syndrome Stand Alone Forms Stand Alone Forms: Work/School Release Instructions Patient Instructions: Acute Bronchitis, DI for Viral Syndrome Print Language Print Language: [place] Discharge ED Provider: Zachery Hooper [facility] General Stated complaint: headache, congestion, cough Time Seen by Provider: 05/13/24 09:00 Related Data Previous Rx's ?Medication ?Instructions ?Recorded azithromycin 250 mg tablet 250 mg PO UD DOSE PK #6 tabs 05/13/24 (Zithromax) zvpgiqluvcmmpyb-dtfpiffokebmcba-KB 5 ml PO Q6H PRN Cough #240 mL 05/13/24 2 mg-30 mg-10 mg/5 mL oral syrup (Bromfed DM) Allergies Allergy/AdvReac Type Severity Reaction Status Date / Time No Known Allergies Allergy Verified 12/28/23 13:33 [facility] Disclaimer: The information contained in this section may have been updated after the patient was seen, as this information can be updated by other users. Medical History Depression Anxiety Surgical History History of cholecystectomy History of appendectomy Social History Smoking Status: Never smoker alcohol intake: never substance use type: denies use current occupational status: employed Travel in the last 8 weeks: None household members: none housing: other ROS Obtained: Yes All systems reviewed & no additional complaints except as documented Constitutional Constitutional: Reports chills and Reports fever(s) Eyes Eyes: Denies eye discharge ENT Ears, Nose, Mouth, and Throat: Reports as per HPI Cardiovascular Cardiovascular: Denies chest pain Respiratory Respiratory: Denies chest congestion and Reports cough Gastrointestinal Gastrointestingal: Reports nausea; Denies abdominal pain, constipation, cramping, diarrhea or vomiting Musculoskeletal Musculoskeletal: Denies arthralgias Integumentary/Breasts Skin/Breast: Denies rash Neurologic Neurologic: Denies paresthesias Physical Exam General General appearance: alert and in no apparent distress Head Head exam: atraumatic, normocephalic and normal inspection Eye Eye exam: Present normal appearance, PERRL and EOMI ENT ENT exam: Present mucous membranes moist and normal external ear exam Expanded ENT Exam TM/Canal exam: Bilateral TM: erythema and bulging Nose exam: Absent sinus tenderness Mouth exam: Present normal external inspection; Absent drooling Teeth exam: Present normal inspection Throat exam: Present tonsillar erythema, tonsillomegaly and tonsillar exudate Neck Neck exam: Present normal inspection, full ROM and trachea midline; Absent tenderness, meningismus or lymphadenopathy Chest Chest inspection: Present normal inspection and symmetric chest wall rise; Absent tenderness Respiratory Respiratory exam: Present normal lung sounds bilaterally; Absent respiratory distress, wheezes, stridor or accessory muscle use Cardiovascular Cardiovascular exam: Present regular rate and normal rhythm; Absent systolic murmur or diastolic murmur Abdominal Exam Abdominal exam: Present soft and normal bowel sounds; Absent distention, tenderness, guarding, rebound or rigidity Extremities Exam Extremities exam: Present normal inspection and normal capillary refill; Absent calf tenderness Back Exam Back exam: Present normal inspection and full ROM; Absent tenderness, CVA tenderness (R) or CVA tenderness (L) Neurological Exam Neurological exam: Present alert, oriented X3 and CN II-XII intact Psychiatric Psychiatric exam: Present normal affect and normal mood Skin Skin exam: Present warm, dry, intact and normal color Medical Decision Making Medical Records Medical records reviewed: No I reviewed the patient's medical records. Rafa Inquiry Pt receiving controlled substance: No Lab Data Lab results reviewed: Yes I reviewed the patient's lab results.
[2024-05-13 09:13] LABS: UTC Strep Screen (Rapid) Negative (Negative)
[2024-05-13 09:57] VITALS: BP 136/68; PULSE 77; RESP 18; TEMP 36.7; O2SAT 96
== END 2024-05-13 09:59 | disposition home or self-care (01) ==
PROVIDERS: Emergency Provider Nurse Practitioner Family; PCP Physician Assistant
DX: J20.9 Acute bronchitis, unspecified (principal); R51.9 Headache, unspecified; R09.81 Nasal congestion; R05.9 Cough, unspecified
CPT/HCPCS: 87635; 87880; 99212; 99214; G0463

== ENCOUNTER 2024-07-08 13:01 | Emergency (ER) | payer MEDICAID, SELFPAY ==
[2024-07-08 13:10] VITALS: BP 155/76; PULSE 99; RESP 16; TEMP 37.2; O2SAT 99; BMI 35.9
--- NOTE | 2024-07-08 13:24 | EXP.UTC ---
Discharge Plan Disposition Patient Disposition: Home, Self-Care Condition: Good Prescriptions Prescriptions: New prednisone 20 mg tablet 20 mg PO BID 3 Days Qty: 6 0RF amoxicillin 875 mg tablet 875 mg PO Q12H Qty: 20 0RF iocxopvinylfycm-pkphygsxc-KQ [Bromfed DM] 2-30-10 mg/5 mL Syrup 5 ml PO Q6H PRN (Reason: Cough) Qty: 240 0RF ondansetron 4 mg Tablet,Disintegrating 4 mg PO Q8H PRN (Reason: Nausea) Qty: 12 0RF Referrals Follow up/Referrals: Tatum Steinberg PA [Primary Care Provider] - See instructions Activity Restrictions/Add. Instructions Additional Instructions/Restrictions: Drink plenty of fluids. Take tylenol or ibuprofen for pain or fever. Take the medications as directed. Follow up with your regular doctor. GO TO THE ER FOR ANY WORSENING SYMPTOMS Clinical Impressions Clinical Impression: Pharyngitis, Acute viral syndrome Stand Alone Forms Stand Alone Forms: Work/School Release Instructions Patient Instructions: Sore Throat, DI for Pharyngitis/Tonsillopharyngitis -- Adult Print Language Print Language: Syriac Discharge ED Provider: Zachery Hooper [facility] General Stated complaint: cough, conges, S/T, pain in L ear Mode of Arrival: Ambulatory Source of Information: Patient Limitations: No Limitations Time Seen by Provider: 07/08/24 13:24 Description of Symptoms (Recalled from Triage Doc. by RN): PATIENT C/O COUGH, SORE THROAT, LEFT EAR PAIN, AND NAUSEA THAT STARTED THIS MORNING HEENT Symptoms (Recalled from RN notes): Yes Resp Symptoms (Recalled from RN notes): Yes Skin Symptoms (Recalled from RN notes): No MS Symptoms (Recalled from RN notes): No Functional Status (Recalled from RN notes): WNL Related Data Previous Rx's ?Medication ?Instructions ?Recorded amoxicillin 875 mg tablet 875 mg PO Q12H #20 tabs 07/08/24 locadoqauiikxkz-spmrsijpkpnlmch-RM 5 ml PO Q6H PRN Cough #240 mL 07/08/24 2 mg-30 mg-10 mg/5 mL oral syrup (Bromfed DM) ondansetron 4 mg disintegrating 4 mg PO Q8H PRN Nausea #12 tabs 07/08/24 tablet prednisone 20 mg tablet 20 mg PO BID 3 days #6 tabs 07/08/24 Allergies Allergy/AdvReac Type Severity Reaction Status Date / Time No Known Allergies Allergy Verified 12/28/23 13:33 Worker's Comp Is this a Worker's Comp case?: No [facility] Disclaimer: The information contained in this section may have been updated after the patient was seen, as this information can be updated by other users. Medical History (Updated 07/08/24 @ 13:39 by Zachery Hooper APRN) History of gastroesophageal reflux (GERD) Urinary tract infection Kidney stone Depression Anxiety Surgical History History of cholecystectomy History of appendectomy Social History Smoking Status: Never smoker alcohol intake: never substance use type: denies use current occupational status: employed Travel in the last 8 weeks: None household members: none housing: other ROS Obtained: Yes All systems reviewed & no additional complaints except as documented Constitutional Constitutional: Reports chills and Reports fever(s) Eyes Eyes: Denies eye discharge ENT Ears, Nose, Mouth, and Throat: Reports as per HPI Cardiovascular Cardiovascular: Denies chest pain Respiratory Respiratory: Denies chest congestion and Reports cough Gastrointestinal Gastrointestingal: Reports nausea; Denies abdominal pain, constipation, cramping, diarrhea or vomiting Musculoskeletal Musculoskeletal: Denies arthralgias Integumentary/Breasts Skin/Breast: Denies rash Neurologic Neurologic: Denies paresthesias Physical Exam General General appearance: alert and in no apparent distress Head Head exam: atraumatic, normocephalic and normal inspection Eye Eye exam: Present normal appearance, PERRL and EOMI ENT ENT exam: Present mucous membranes moist and normal external ear exam Expanded ENT Exam TM/Canal exam: Bilateral TM: erythema and bulging Nose exam: Absent sinus tenderness Mouth exam: Present normal external inspection; Absent drooling Teeth exam: Present normal inspection Throat exam: Present tonsillar erythema, tonsillomegaly and tonsillar exudate Neck Neck exam: Present normal inspection, full ROM and trachea midline; Absent tenderness, meningismus or lymphadenopathy Chest Chest inspection: Present normal inspection and symmetric chest wall rise; Absent tenderness Respiratory Respiratory exam: Present normal lung sounds bilaterally; Absent respiratory distress, wheezes, stridor or accessory muscle use Cardiovascular Cardiovascular exam: Present regular rate and normal rhythm; Absent systolic murmur or diastolic murmur Abdominal Exam Abdominal exam: Present soft and normal bowel sounds; Absent distention, tenderness, guarding, rebound or rigidity Extremities Exam Extremities exam: Present normal inspection and normal capillary refill; Absent calf tenderness Back Exam Back exam: Present normal inspection and full ROM; Absent tenderness, CVA tenderness (R) or CVA tenderness (L) Neurological Exam Neurological exam: Present alert, oriented X3 and CN II-XII intact Psychiatric Psychiatric exam: Present normal affect and normal mood Skin Skin exam: Present warm, dry, intact and normal color Medical Decision Making Medical Records Medical records reviewed: No I reviewed the patient's medical records. Screening: Per USPSTF and CDC recommendations, given the prevalence of disease in our region, it is our hospital?s policy to screen for HIV and viral Hepatitis for all patients aged 18 and over and those with ongoing risk factors. Rafa Inquiry Pt receiving controlled substance: No Vital Signs: 07/08/24 13:10 Temperature 98.9 F Temperature Source Oral Pulse Rate [Left Brachial] 99 H Respiratory Rate 16 Blood Pressure [Left Arm] 155/76 H Blood Pressure Mean [Left Arm] 102 Blood Pressure Source [Left Arm] Automatic Cuff Blood Pressure Position [Left Arm] Sitting 02 Sat by Pulse Oximetry 99 Oxygen Delivery Method Room Air Lab Data Lab results reviewed: Yes I reviewed the patient's lab results.
[2024-07-08 13:27] LABS: UTC Strep Screen (Rapid) Negative (Negative)
[2024-07-08 13:40] VITALS: BP 155/76; PULSE 99; RESP 16; TEMP 37.2; O2SAT 99
[2024-07-08 13:49] LABS: Coronavirus 19, PCR Not Detected (NotDetected); Influenza A, PCR Not Detected (NotDetected); Influenza B, PCR Not Detected (NotDetected)
== END 2024-07-08 13:44 | disposition home or self-care (01) ==
PROVIDERS: Emergency Provider Nurse Practitioner Family; PCP Physician Assistant
DX: N39.0 Urinary tract infection, site not specified (principal)
CPT/HCPCS: 87636; 87880; 99213; G0381

== ENCOUNTER 2024-08-16 09:13 | Emergency (ER) | payer MEDICAID, SELFPAY ==
[2024-08-16] VITALS (8 sets, daily range): BP systolic 98–164; BP diastolic 45–93; PULSE 55–79; RESP 16–19; TEMP 36.5–36.7; O2SAT 96–99; BMI 35.2
[2024-08-16 09:29] LABS: MANUAL DIFFERENTIAL MANUAL DIFFERENTIAL (MANUAL DIFF)
[2024-08-16 09:29] LABS: Microscopic, Urine URINE MICROSCOPIC (MICROSCOPIC)
--- NOTE | 2024-08-16 09:39 | PC.NURSE ---
Dr. Carrasco at [facility] for pt eval
[2024-08-16 09:44] LABS: Albumin Level 4.4 g/dl (3.5-5.0); Chloride 108 mmol/L (98-107); Potassium 4.4 mmoL/L (3.5-5.1); Sodium 141 mmol/L (136-145)
--- NOTE | 2024-08-16 09:45 | CT_ITS ---
PROCEDURE INFORMATION: Exam: CT Abdomen And Pelvis With Contrast Exam date and time: 08/16/2024 10:20 AM Age: 24 years old Clinical indication: Abdominal pain; Additional info: Llq abd pain, hematuria TECHNIQUE: Imaging protocol: Computed tomography of the abdomen and pelvis with contrast. Radiation optimization: All CT scans at this facility use at least one of these dose optimization techniques: automated exposure control; mA and/or kV adjustment per patient size (includes targeted exams where dose is matched to clinical indication); or iterative reconstruction. Contrast material: ISOVUE; Contrast volume: 75 ml; Contrast route: IV; COMPARISON: CT ABDOMEN PELVIS W CON 02/11/2024 2:57 PM FINDINGS: Lungs: Lung bases are unremarkable. Liver: No focal hepatic lesions. Gallbladder and biliary ducts: There has been a cholecystectomy. Pancreas: No peripancreatic fluid stranding. No main pancreatic ductal dilation. Spleen: Normal. No splenomegaly. Adrenal glands: The adrenal glands are normal. Kidneys and ureters: Nephrograms are symmetric. No nephrolithiasis or hydroureteronephrosis on either side. No solid lesions Stomach and bowel: No bowel wall thickening or distention. Appendix: There has been an appendectomy. Intraperitoneal space: There is no evidence of free intraperitoneal or pelvic fluid. Vasculature: Aorta is nonaneurysmal. Scattered pelvic phleboliths noted Lymph nodes: Unremarkable. No enlarged lymph nodes. Urinary bladder: Urinary bladder is unremarkable. Reproductive: Unremarkable as visualized. Bones/joints: No acute osseous abnormality. Soft tissues: Unremarkable. IMPRESSION: No acute abnormality in the abdomen or pelvis
[2024-08-16 09:46] LABS: Appearance,Urine CLEAR (Clear); Bilirubin,Urine Negative (Negative); Blood, Urine 2+ (Negative); Color,Urine YELLOW (Yellow); Glucose,Urine (UA) Negative (Negative); Ketones,Urine Negative (Negative); Leukocyte Esterase,Urine Negative (Negative); Nitrate,Urine Negative (Negative); Protein,Urine TRACE (Negative); Specific Gravity, Urine 1.025 (1.005-1.030); Urobilinogen,Urine 0.2 EU/dl (0.2)
[2024-08-16 09:47] LABS: Alanine Aminotransferase 24 U/L (12-78); Albumin/Globulin Ratio 1.2 (1.1-1.8); Alkaline Phosphatase 64 U/L (38-126); Anion Gap 14.4 mEq/L (5-15); Aspartate Amino Transferase 33 U/L (14-36); Bilirubin,Total 0.7 mg/dl (0.2-1.3); Blood Urea Nitrogen 10 mg/dl (7-17); Carbon Dioxide 23 mmol/L (22.0-30.0); Creatinine Clearance Estimated 179 mL/min (50-200); Estimated Glomerular Filt Rate 101 ml/min (>60); GFR (African American) 122 ML/MIN (>60); Globulin 3.6 g/dL (1.3-3.2)
[2024-08-16 09:48] LABS: Calcium 9.4 mg/dl (8.4-10.2); Glucose 97 mg/dl (74-100)
--- NOTE | 2024-08-16 09:48 | HMH.EDGENADL ---
Discharge Plan Disposition Patient Disposition: Home, Self-Care Prescriptions Prescriptions: New nitrofurantoin monohyd/m-cryst 100 mg capsule 100 mg PO BID 5 Days Qty: 10 0RF Rx Instructions: must administer with a meal/food No Action norethindrone-e.estradiol-iron [Loestrin Fe 10/14 (28-Day)] 1 mg-20 mcg (21)/75 mg (7) tablet 1 tab PO DAILY Qty: 84 4RF Referrals Follow up/Referrals: Krystina Daniels APRN [Primary Care Provider] - See instructions Activity Restrictions/Add. Instructions Additional Instructions/Restrictions: Other than blood in your urine no other definitive emergent medical condition identified on your CAT scan or your lab work including your urinalysis. Specifically no definitive evidence of urinary tract infection however given the fact that we do not have a definitive cause of the blood in your urine we will trial a course of antibiotics to see if that will resolve your symptoms. I recommend that you follow-up with your primary care doctor or your [facility] doctor to ensure resolution. If you continue to have blood in your urine that is undifferentiated I further recommend that you follow-up with a urologist. Clinical Impressions Clinical Impression: Abdominal pain, LLQ, Hematuria Instructions Patient Instructions: DI for Urinary Tract Infection (UTI), DI for Urinary Tract Infection in Children Print Language Print Language: Maldivian Discharge ED Provider: Jevon Carrasco General Adult HPI General Chief complaint: Urogenital-Female Stated complaint: nausea, pelvic and back pain Time Seen by Provider: 08/16/24 09:38 Mode of Arrival: Family Vehicle Source of Information: Patient and Medical Record Limitations: No Limitations Description of Symptoms (Recalled from ER Triage Doc. by RN): Pt c/o pelvic pain, L back pain, urinary urgency, and gross hematuria. She also resport nausea wo vomiting that began this morning. Denies any burning with urination. She has a hx of UTI and a kidney stone this past January. Denies any fever, chills, or body aches. She took Tylenol @ 0730. History of Present Illness HPI narrative: Patient is a 24-year-old female presenting today with left lower quadrant abdominal pain and hematuria over the last several days. Does have a history of UTI and kidney stone in the past. Denies any fevers chills etc. Related Data Previous Rx's ?Medication ?Instructions ?Recorded norethindrone 1 mg-ethinyl 1 tab PO DAILY #84 tabs 07/25/24 estradiol 20 mcg (21)-iron 75 mg (7) tablet (Loestrin Fe 10/14 (28-Day)) nitrofurantoin 100 mg PO BID 5 days #10 caps 08/16/24 monohydrate/macrocrystals 100 mg capsule Allergies Allergy/AdvReac Type Severity Reaction Status Date / Time No Known Allergies Allergy Verified 07/25/24 13:57 [facility] Disclaimer: The information contained in this section may have been updated after the patient was seen, as this information can be updated by other users. Medical History History of gastroesophageal reflux (GERD) Urinary tract infection Kidney stone Depression Anxiety Surgical History History of cholecystectomy History of appendectomy Social History Smoking Status: Former smoker alcohol intake: never substance use type: denies use current occupational status: employed household members: none housing: other Other Medical History Have you received the Flu Vaccine for this season: Yes Have you received the Pneumonia Vaccine: Yes ROS Obtained: Yes All systems reviewed & no additional complaints except as documented Physical Exam General General appearance: alert and in no apparent distress Respiratory Respiratory exam: Present normal lung sounds bilaterally Cardiovascular Cardiovascular exam: Present regular rate Abdominal Exam Abdominal exam: Present tenderness (Left lower quadrant tenderness to palpation no rebound or guarding) Neurological Exam Neurological exam: Present alert and oriented X3 Medical Decision Making Medical Records Screening: Per USPSTF and CDC recommendations, given the prevalence of disease in our region, it is our hospital?s policy to screen for HIV and viral Hepatitis for all patients aged 18 and over and those with ongoing risk factors. Rafa Inquiry Pt receiving controlled substance: No Vital Signs: 08/16/24 09:14 08/16/24 09:20 08/16/24 09:31 Temperature 97.7 F Temperature Source Oral Pulse Rate 71 67 Pulse Rate [Right] 79 Respiratory Rate 19 Blood Pressure 164/93 H 98/62 L Blood Pressure [Right Arm] 164/93 H Blood Pressure Mean 118 76 Blood Pressure Mean [Right Arm] 116 Blood Pressure Source [Right Arm] Automatic Cuff 02 Sat by Pulse Oximetry 98 96 96 Oxygen Delivery Method Room Air Room Air 08/16/24 10:01 08/16/24 10:36 08/16/24 11:01 Temperature Temperature Source Pulse Rate 69 60 55 L Pulse Rate [Right] Respiratory Rate Blood Pressure 110/45 L 115/61 104/50 L Blood Pressure [Right Arm] Blood Pressure Mean 66 74 68 Blood Pressure Mean [Right Arm] Blood Pressure Source [Right Arm] 02 Sat by Pulse Oximetry 98 97 99 Oxygen Delivery Method Room Air Room Air Room Air Lab Data Lab results reviewed: Yes I reviewed the patient's lab results. Lab Results 08/16/24 09:18: Urine Color Yellow, Urine Appearance Clear, Urine pH 6.0, Ur Specific Pearl 1.025, Urine Protein Trace, Urine Glucose (UA) Negative, Urine Ketones Negative, Urine Blood 2+ A, Urine Nitrate Negative, Urine Bilirubin Negative, Urine Urobilinogen 0.2, Ur Leukocyte Esterase Negative, Urine RBC Occasional, Urine WBC None, Ur Squamous Epith Cells 10-20, Urine Bacteria None 08/16/24 09:22: WBC 8.4, RBC 4.65, Hgb 13.5, Hct 39.8, MCV 85.7, MCH 29.0, MCHC 33.8, RDW 14.4, Plt Count 351, MPV 8.3, Neut % (Auto) 71.6, Lymph % (Auto) 21.3, Mccormick % (Auto) 4.8, Eos % (Auto) 1.8, Baso % (Auto) 0.5, Neut # (Auto) 6.0, Lymph # (Auto) 1.8, Mccormick # (Auto) 0.4, Eos # (Auto) 0.2, Baso # (Auto) 0.0, Sodium 141, Potassium 4.4, Chloride 108 H, Carbon Dioxide 23, Anion Gap 14.4, BUN 10, Creatinine 0.70, Estimated Creat Clear 179, Estimated GFR 101, Est GFR ( Amer) 122, Glucose 97, Calcium 9.4, Total Bilirubin 0.7, AST 33, ALT 24, Alkaline Phosphatase 64, Total Protein 8.0, Albumin 4.4, Globulin 3.6 H, Albumin/Globulin Ratio 1.2, Serum HCG, Qual Negative 08/16/24 09:22 08/16/24 09:22 Orders (Tests/Meds): ED MEDICATIONS Discontinued Medications Generic Name Dose Route Start Last Admin Trade Name aMndie PRN Reason Stop Dose Admin Lactated Ringer's 1,000 mls @ 999 mls/hr 08/16/24 09:45 08/16/24 09:51 Lactated Ringer's 1000 Ml Bag IV 08/16/24 10:45 999 mls/hr .Q1H1M STEFAN Administration Iopamidol 75 ml 08/16/24 10:31 08/16/24 10:32 Iopamidol-370 (76%);100ml Bottle IV 08/16/24 10:32 75 ml ONCE ONE Administration Ketorolac Tromethamine 15 mg 08/16/24 09:45 08/16/24 09:51 Ketorolac 30mg/Ml Vial IV 08/16/24 09:46 15 mg ONCE ONE Administration Ondansetron HCl 4 mg 08/16/24 09:45 08/16/24 09:51 Ondansetron 4mg/2ml Vial IV 08/16/24 09:46 4 mg ONCE ONE Administration Sodium Chloride 10 ml 08/16/24 10:31 08/16/24 10:32 Sodium Chloride 0.9% 10ml Syr (Rad Only) IV 08/16/24 10:32 10 ml ONCE ONE Administration ORDERS Category Date Time Status CT abdomen pelvis w con Stat Cat Scan 08/16/24 09:45 Completed Complete Blood Count Man Dif Stat Lab 08/16/24 09:22 Results Comprehensive Metabolic Panel Stat Lab 08/16/24 09:22 Completed HIV (1&2) Antibody Rapid Stat Lab 08/16/24 09:22 Received Hep C Ab with Reflex to RNA Stat Lab 08/16/24 09:22 Received Serum [HCG Qualitative, Serum] Stat Lab 08/16/24 09:22 Completed Urinalysis and Microscopic Stat Lab 08/16/24 09:18 Completed Medical Decision Narrative: 24-year-old with above history and physical she does have some UTI type symptoms as well as some hematuria and left lower quadrant tenderness. Given the fact that she is tender unilaterally differential includes kidney stone, diverticulitis colitis, urinary tract infection etc. peer will get a contrasted CT scan for further evaluation management. IV fluids pain medicine nausea meds have been administered will reassess Reassessment 1130 patient feeling significantly better CT scan performed I personally interpreted which shows no acute abnormality. Urinalysis did have hematuria but no evidence definitively of urinary tract infection. There is diagnostic uncertainty in this particular case. It is possible she is having some hormone dysfunction with recent change of her control and that this is not actually urinary in origin. Other less likely explanations would be malignancies, radiolucent kidney stone etc. I have recommend that she follow-up with her [facility] doctor her primary care doctor to ensure resolution we will trial some antibiotics to make sure this is not a occult infection. Subsequently I told her to follow-up with a urologist if she is not improving Critical Care Critical Care Time Critical Care Time: No
[2024-08-16] MEDS: ONDANSETRON 4MG/2ML VIAL 4 MG IV (09:51)
[2024-08-16] MEDS: KETOROLAC 30MG/ML VIAL 15 MG IV (09:51)
[2024-08-16] MEDS: LACTATED RINGERS 1000ML 1,000 ML 999 ML IV (09:51)
[2024-08-16 09:54] LABS: Basophils % 0.5 % (0.1-2.0); Eosinophils # 0.2 K/mm3 (0.0-0.4); Eosinophils % 1.8 % (0.1-12.0); Hematocrit 39.8 % (37.0-47.0); Hemoglobin 13.5 g/dL (12.2-16.2); Lymphocytes # 1.8 K/mm3 (0.7-4.5); Lymphocytes % 21.3 % (10-50); Mean Corpuscular HGB Conc 33.8 g/dL (31.8-35.4); Mean Corpuscular Volume 85.7 fl (81-99); Mean Platelet Volume 8.3 fl (7.4-10.4); Monocytes # 0.4 K/mm3 (0.1-1.0); Monocytes % 4.8 % (1.7-9.3); Neutrophils % 71.6 % (37.0-80.0); Platelet Count 351 K/mm3 (142-424); Red Blood Count 4.65 M/mm3 (4.20-5.40); Red Cell Distribution Width 14.4 % (11.5-17.5); White Blood Count 8.4 K/mm3 (4.8-10.8)
[2024-08-16 10:06] LABS: HCG Qualitative, Serum Negative (Negative)
[2024-08-16 10:08] LABS: RBC,Urine Occasional #/hpf (0-3)
[2024-08-16] MEDS: SODIUM CHLORIDE 0.9% 10ML SYR (RAD ONLY) 10 ML IV (10:32)
[2024-08-16] MEDS: IOPAMIDOL-370 (76%);100ML BOTTLE 75 ML IV (10:32)
[2024-08-16 12:34] LABS: HIV (1&2) Antibody Rapid NONREACTIVE (NONREACTIVE)
[2024-08-16 12:43] LABS: Eosinophils % 2 % (0-3); Lymphocytes % 20 % (10-50); Monocytes % 6 % (2-9); Neutrophils % 72 % (42-76); Total Cells Counted 100
[2024-08-16 12:44] LABS: Platelet Estimate Normal; RBC Morphology Normal
[2024-08-17 07:14] LABS: HCV Ab Non Reactive (Non Reactive)
== END 2024-08-16 11:36 | disposition home or self-care (01) ==
PROVIDERS: Emergency Provider Student in an Organized Health Care Education/Training Program; PCP Nurse Practitioner Family
DX: R10.32 Left lower quadrant pain (principal); M54.50 Low back pain, unspecified; R39.15 Urgency of urination; R11.10 Vomiting, unspecified
CPT/HCPCS: 74177; 80053; 81001; 84703; 85007; 85014; 85018; 85048; 85049; 86803; 87389; 96361; 96374; 96375; 99285; J1885; J2405; J7120; Q9967

== ENCOUNTER 2024-09-09 11:12 | Outpatient (CLI) | payer MEDICAID, SELFPAY ==
--- NOTE | 2024-09-09 11:16 | XR_ITS ---
FINAL REPORT CLINICAL HISTORY: cough, fever COMPARISON: None FINDINGS: CHEST: No acute pulmonary density is evident. There is no evidence of effusion or other pleural disease. The mediastinum has a normal appearance. The cardiac silhouette is unremarkable. IMPRESSION: Unremarkable chest exam. Reviewed, Interpreted and Dictated by Radha Mane MD Transcribed by Yuliana Flores Authenticated and . [facility]
--- NOTE | 2024-09-09 11:16 | XR_ITS ---
FINAL REPORT TECHNIQUE: 5 views CLINICAL HISTORY: neck pain - fever COMPARISON: None FINDINGS: CERVICAL SPINE: There is no fracture present. There is no malalignment. There are no significant degenerative changes. IMPRESSION: No acute process. Reviewed, Interpreted and Dictated by Radha Mane MD Transcribed by Yuliana Flores Authenticated and [facility]
[2024-09-09 12:15] LABS: Basophils % 0.2 % (0.1-2.0); Eosinophils # 0.1 K/mm3 (0.0-0.4); Eosinophils % 0.9 % (0.1-12.0); Hemoglobin 13.4 g/dL (12.2-16.2); Lymphocytes # 1.5 K/mm3 (0.7-4.5); Mean Corpuscular HGB Conc 35.4 g/dL (31.8-35.4); Mean Corpuscular Hemoglobin 30.1 pg (27.0-31.2); Mean Corpuscular Volume 84.9 fl (81-99); Mean Platelet Volume 8.2 fl (7.4-10.4); Monocytes # 0.4 K/mm3 (0.1-1.0); Monocytes % 4.6 % (1.7-9.3); Neutrophils # 7.5 K/mm3 (1.8-7.8); Neutrophils % 78.3 % (37.0-80.0); Platelet Count 300 K/mm3 (142-424); Red Blood Count 4.47 M/mm3 (4.20-5.40); Red Cell Distribution Width 13.9 % (11.5-17.5); White Blood Count 9.5 K/mm3 (4.8-10.8)
[2024-09-09 12:34] LABS: Albumin Level 4.2 g/dl (3.5-5.0); Chloride 107 mmol/L (98-107); Potassium 4.2 mmoL/L (3.5-5.1); Sodium 133 mmol/L (136-145)
[2024-09-09 12:37] LABS: Alanine Aminotransferase 27 U/L (12-78); Albumin/Globulin Ratio 1.4 (1.1-1.8); Alkaline Phosphatase 79 U/L (38-126); Anion Gap 9.2 mEq/L (5-15); Aspartate Amino Transferase 31 U/L (14-36); Bilirubin,Total 0.6 mg/dl (0.2-1.3); Blood Urea Nitrogen 10 mg/dl (7-17); Calcium 9.3 mg/dl (8.4-10.2); Carbon Dioxide 21 mmol/L (22.0-30.0); Estimated Glomerular Filt Rate 101 ml/min (>60); GFR (African American) 122 ML/MIN (>60); Glucose 110 mg/dl (74-100); Total Protein,Serum 7.2 g/dl (6.3-8.2)
[2024-09-09 17:44] LABS: Adenovirus,PCR Not Detected (NotDetected); Bordetella Pertussis Not Detected (NotDetected); Chlamydophila Pneumoniae, PCR Not Detected (NotDetected); Coronavirus 19, PCR Not Detected (NotDetected); Coronavirus 229E Not Detected (NotDetected); Coronavirus NL63 Not Detected (NotDetected); Coronavirus OC43 Not Detected (NotDetected); Coronovirus HKU1,PCR Not Detected (NotDetected); Human Metapneumovirus Not Detected (NotDetected); Influenza A, PCR Not Detected (NotDetected); Influenza AH1, 2009 Not Detected (NotDetected); Influenza AH1, PCR Not Detected (NotDetected); Influenza AH3,PCR Not Detected (NotDetected); Influenza B, PCR Not Detected (NotDetected); Mycoplasma Pneumoniae, PCR Not Detected (NotDetected); Parainfluenza 1, PCR Not Detected (NotDetected); Parainfluenza 2, PCR Not Detected (NotDetected); Parainfluenza 3, PCR Not Detected (NotDetected); Parainfluenza 4, PCR Not Detected (NotDetected); Respiratory Syncytial Virus Not Detected (NotDetected); Rhinovirus/Enterovirus Not Detected (NotDetected)
== END 2024-09-09 23:59 | disposition home or self-care (01) ==
PROVIDERS: PCP Student in an Organized Health Care Education/Training Program; Visit Provider Student in an Organized Health Care Education/Training Program
DX: R05.9 Cough, unspecified (principal); R50.9 Fever, unspecified; M54.2 Cervicalgia
CPT/HCPCS: 36415; 71046; 72050; 80053; 85025; 87633

== ENCOUNTER 2024-10-02 13:43 | Emergency (ER) | payer MEDICAID, SELFPAY ==
[2024-10-02 13:50] VITALS: BP 141/84; PULSE 105; RESP 19; TEMP 37.3; O2SAT 95; BMI 36.2
--- NOTE | 2024-10-02 14:00 | EXP.UTC ---
Discharge Plan Disposition Patient Disposition: Home, Self-Care Condition: Good Prescriptions Prescriptions: New jhtxxgkbhktqqxo-rdualedhp-LY [Bromfed DM] 2-30-10 mg/5 mL syrup 10 ml PO Q6H PRN (Reason: cold symptoms) Qty: 200 0RF No Action norethindrone-e.estradiol-iron [Loestrin Fe 10/14 (28-Day)] 1 mg-20 mcg (21)/75 mg (7) tablet 1 tab PO DAILY Qty: 84 4RF Referrals Follow up/Referrals: Krystina Daniels APRN [Primary Care Provider] - See instructions Activity Restrictions/Add. Instructions Additional Instructions/Restrictions: *Monitor Temp, Over the counter Motrin or Tylenol as directed/as needed Tylenol every 4 hours and Motrin every 6 hours (as long as your family doctor has told you that you can take it) for fever or pain. and straight to ER if unable to lower temp less than 101.0 after medication given *Warm salt water gargles may help to soothe the throat *Throat Lozenges? *Warm fluids like tea with honey may help to soothe the throat? *Sleep elevated *Humidifier/Vaporizer *Bromfed may cause drowsiness. Know how it effects you (your child) before driving, caring for small child, or sending your child to school. Not other antihistamines/allergy medications while taking bromfed Your throat swab was sent for culture. Those results are typically sent to your primary care. Be sure to follow up in 2-3 days with your family doctor/primary care physician if no improvement so they can review those result and treat if necessary. If you don?t have a primary care doctor, I recommend you get one but in the mean time, you will have to return to a walk in clinic Follow up IMMEDIATELY for new or worsening symptoms or no Noticeable improvement over the next 48-72 hours. 911 for difficulty breathing or swallowing You were tested for today for Mini Panel which includes COVID19, Influenza A & B, Rhino Virus, and RSV your test result should be back in the next few hours and be available on the [facility] [employer] [facility] Portal if everything is negative follow up with your Family Doctor Clinical Impressions Clinical Impression: Viral syndrome Stand Alone Forms Stand Alone Forms: Work/School Release Instructions Patient Instructions: Sore Throat, Cough, DI for Viral Syndrome Print Language Print Language: Bulgarian Discharge ED Provider: Isabel Pal [facility] HPI General Stated complaint: fever, cough, stomach pain Mode of Arrival: Ambulatory Source of Information: Patient Limitations: No Limitations Time Seen by Provider: 10/02/24 14:00 Description of Symptoms (Recalled from Triage Doc. by RN): PATIENT C/O COUGH, FEVER, BODY ACHES, LUPQ PAIN, SORE THROAT AND CHEST CONGESTION THAT STARTED THIS MORNING HEENT Symptoms (Recalled from RN notes): Yes Resp Symptoms (Recalled from RN notes): Yes Skin Symptoms (Recalled from RN notes): No MS Symptoms (Recalled from RN notes): No Functional Status (Recalled from RN notes): WNL History of Present Illness Provider Complaint: Patient states that she was fine when she laid down last night but she woke up in the middle of the night with fever, chills, body aches, achy like pain in left upper abdomen that went away, cough, congestion and sore scratchy throat States that she took Ibuprofen and laid back down and woke up sweating like she may have broken a fever States she has continued to have cough, sore scratchy throat and body aches, and chills on and off so she came in to get checked Related Data Previous Rx's ?Medication ?Instructions ?Recorded norethindrone 1 mg-ethinyl 1 tab PO DAILY #84 tabs 07/25/24 estradiol 20 mcg (21)-iron 75 mg (7) tablet (Loestrin Fe 10/14 (28-Day)) otlfsrcushpnmub-vmateetwcvcobhx-TX 10 ml PO Q6H PRN cold symptoms 10/02/24 2 mg-30 mg-10 mg/5 mL oral syrup #200 mL (Bromfed DM) Allergies Allergy/AdvReac Type Severity Reaction Status Date / Time No Known Allergies Allergy Verified 09/09/24 10:02 Worker's Comp Is this a Worker's Comp case?: No [facility] Disclaimer: The information contained in this section may have been updated after the patient was seen, as this information can be updated by other users. Medical History History of gastroesophageal reflux (GERD) Urinary tract infection Kidney stone Depression Anxiety Surgical History History of cholecystectomy History of appendectomy Social History Smoking Status: Former smoker alcohol intake: never substance use type: denies use current occupational status: employed Travel in the last 8 weeks: None household members: none housing: other Have you lived/traveled outside [place] in past 30 days?: No Contact w/someone who lives/traveled outside [place] past 30 days?: No Exposure to someone with infectious disease in past 14 days?: No Do you have a fever (greater than 100.4 F or 38 C)?: Yes Have you tested positive for COVID-19: No Exposed to someone with COVID-19 in past 14 days?: No Do you have a sore throat?: No Do you have a cough?: Yes Do you have any weakness?: No Do you have any diarrhea?: No Are you experiencing any unusual bleeding?: No Do you have any muscle aches/pain?: Yes Do you have any abdominal pain?: No Are you experiencing loss of taste or smell?: No ROS Obtained: Yes All systems reviewed & no additional complaints except as documented and Yes Systems reviewed as appropriate & no additional complaints except as documented Constitutional Constitutional: Reports system reviewed and no additional complaints, except as documented, Reports as per HPI, Reports body ache, Reports chills, Reports fever(s) and Reports headache(s) ENT Ears, Nose, Mouth, and Throat: Reports system reviewed and no additional complaints, except as documented, Reports as per HPI, Reports headache(s) and Reports sore throat Cardiovascular Cardiovascular: Reports system reviewed and no additional complaints, except as documented and Reports as per HPI Respiratory Respiratory: Reports system reviewed and no additional complaints, except as documented, Reports as per HPI, Denies shortness of breath, Reports chest congestion and Reports cough Gastrointestinal Gastrointestingal: Reports system reviewed and no additional complaints, except as documented, as per HPI and abdominal pain (achy like pain at 3am but gone after ibuprofen and waking up no pain now); Denies cramping, nausea or vomiting Genitourinary Female Genitourinary: Reports system reviewed and no additional complaints, except as documented and Reports as per HPI Musculoskeletal Musculoskeletal: Reports system reviewed and no additional complaints, except as documented and Reports as per HPI Integumentary/Breasts Skin/Breast: Reports system reviewed and no additional complaints, except as documented and Reports as per HPI Neurologic Neurologic: Reports headache(s) Physical Exam General General appearance: alert and in no apparent distress ENT ENT exam: Present mucous membranes moist Expanded ENT Exam Nose exam: Absent sinus tenderness Throat exam: Present tonsillar erythema; Absent tonsillomegaly or tonsillar exudate Neck Neck exam: Present normal inspection and full ROM Chest Chest inspection: Present normal inspection and symmetric chest wall rise; Absent tenderness Respiratory Respiratory exam: Present normal lung sounds bilaterally; Absent respiratory distress or wheezes Cardiovascular Cardiovascular exam: Present regular rate, normal rhythm and tachycardia Abdominal Exam Abdominal exam: Present soft and normal bowel sounds; Absent distention or tenderness Neurological Exam Neurological exam: Present alert, oriented X3 and normal gait Medical Decision Making Medical Records Screening: Per USPSTF and CDC recommendations, given the prevalence of disease in our region, it is our hospital?s policy to screen for HIV and viral Hepatitis for all patients aged 18 and over and those with ongoing risk factors. Arfa Inquiry Pt receiving controlled substance: No Rafa was queried for this patient: No Vital Signs: 10/02/24 13:50 Temperature 99.2 F Temperature Source Oral Pulse Rate [Left Brachial] 105 H Respiratory Rate 19 Blood Pressure [Left Arm] 141/84 H Blood Pressure Mean [Left Arm] 103 Blood Pressure Source [Left Arm] Automatic Cuff Blood Pressure Position [Left Arm] Sitting 02 Sat by Pulse Oximetry 95 Oxygen Delivery Method Room Air Lab Data Lab results reviewed: Yes I reviewed the patient's lab results.
[2024-10-02 14:10] LABS: UTC Influenza A Antigen Negative (Negative)
[2024-10-02 14:11] LABS: UTC Influenza B Antigen Negative (Negative); UTC Strep Screen (Rapid) Negative (Negative)
[2024-10-02 14:24] LABS: UTC Pregnancy Test, Urine Negative (Negative)
[2024-10-02 14:29] VITALS: BP 141/84; PULSE 105; RESP 19; TEMP 37.3; O2SAT 95
[2024-10-02 14:35] LABS: Coronavirus 19, PCR Not Detected (NotDetected); Human Rhinovirus Not Detected (NotDetected); Influenza A, PCR Not Detected (NotDetected); Influenza B, PCR Not Detected (NotDetected); Respiratory Syncytial Virus Not Detected (NotDetected)
== END 2024-10-02 14:31 | disposition home or self-care (01) ==
PROVIDERS: Emergency Provider Nurse Practitioner; PCP Nurse Practitioner Family
DX: B34.9 Viral infection, unspecified (principal)
CPT/HCPCS: 81025; 87631; 87804; 87880; 99213; G0381

== ENCOUNTER 2024-12-19 16:57 | Emergency (ER) | payer MEDICAID, SELFPAY ==
[2024-12-19 17:01] VITALS: BP 172/82; PULSE 85; RESP 18; TEMP 36.6; O2SAT 100; BMI 37.0
[2024-12-19 18:11] LABS: Microscopic, Urine URINE MICROSCOPIC (MICROSCOPIC)
[2024-12-19 18:32] LABS: Basophils % 0.4 % (0.1-2.0); Eosinophils # 0.1 K/mm3 (0.0-0.4); Eosinophils % 1.2 % (0.1-12.0); Hematocrit 38.6 % (37.0-47.0); Hemoglobin 12.9 g/dL (12.2-16.2); Lymphocytes # 2.6 K/mm3 (0.7-4.5); Lymphocytes % 27.5 % (10-50); Mean Corpuscular HGB Conc 33.4 g/dL (31.8-35.4); Mean Corpuscular Hemoglobin 29.4 pg (27.0-31.2); Mean Corpuscular Volume 87.9 fl (81-99); Mean Platelet Volume 10.4 fl (7.4-10.4); Monocytes # 0.8 K/mm3 (0.1-1.0); Monocytes % 8.2 % (1.7-9.3); Neutrophils # 5.9 K/mm3 (1.8-7.8); Neutrophils % 62.5 % (37.0-80.0); Platelet Count 365 K/mm3 (142-424); Red Blood Count 4.39 M/mm3 (4.20-5.40); White Blood Count 9.5 K/mm3 (4.8-10.8)
[2024-12-19 18:46] LABS: Alanine Aminotransferase 35 U/L (12-78); Albumin Level 4.9 g/dl (3.5-5.0); Albumin/Globulin Ratio 1.5 (1.1-1.8); Alkaline Phosphatase 52 U/L (38-126); Anion Gap 15.2 mEq/L (5-15); Aspartate Amino Transferase 34 U/L (14-36); Bilirubin,Total 0.5 mg/dl (0.2-1.3); Blood Urea Nitrogen 7 mg/dl (7-17); Calcium 9.5 mg/dl (8.4-10.2); Carbon Dioxide 25 mmol/L (22.0-30.0); Chloride 103 mmol/L (98-107); Creatinine Clearance Estimated 264 mL/min (50-200); Estimated Glomerular Filt Rate 149 ml/min (>60); GFR (African American) 180 ML/MIN (>60); Globulin 3.3 g/dL (1.3-3.2); Glucose 95 mg/dl (74-100); Lipase 54 U/L (23-300); Potassium 4.2 mmoL/L (3.5-5.1); Sodium 139 mmol/L (136-145); Total Protein,Serum 8.2 g/dl (6.3-8.2)
[2024-12-19 18:50] LABS: Appearance,Urine CLEAR (Clear); Bilirubin,Urine Negative (Negative); Blood, Urine SMALL (Negative); Color,Urine YELLOW (Yellow); Glucose,Urine (UA) Negative (Negative); Ketones,Urine Negative (Negative); Leukocyte Esterase,Urine Negative (Negative); Nitrate,Urine Negative (Negative); PH,Urine 5.5 (5.0-8.5); Protein,Urine Negative (Negative); Specific Gravity, Urine >= 1.030 (1.005-1.030); Urobilinogen,Urine 0.2 EU/dl (0.2)
[2024-12-19 19:27] LABS: Urine Pregnancy, HCG Qual. Negative (Negative)
--- NOTE | 2024-12-19 19:47 | ED_ITS ---
Discharge Plan Disposition Patient Disposition: Home, Self-Care Prescriptions Prescriptions: No Action albuterol sulfate 90 mcg/actuation aerosol powdr breath activated 1 inh inhalation Q6H Qty: 1 2RF cetirizine [All Day Allergy (cetirizine)] 10 mg tablet 10 mg PO DAILY Qty: 30 0RF fluticasone propionate [Flonase Allergy Relief] 50 mcg/actuation spray,suspension 1 spray intranasal DAILY Qty: 16 0RF Rx Instructions: administer into each nostril Referrals Follow up/Referrals: Idalmis Benz APRN [Primary Care Provider] - See instructions Herber Johnson II, MD [Staff Physician] - See instructions Activity Restrictions/Add. Instructions Additional Instructions/Restrictions: Call your family doctor to establish care for this visit to the emergency department and schedule follow-up within 48 hours to ensure improvement. If you have any worsening of your condition or any other concerning signs or symptoms, return to the emergency department or your primary care doctor for further evaluation. Call Dr. Johnson office in order to set up appointment for a scope to further delineate cause of rectal bleeding Clinical Impressions Clinical Impression: Bright red rectal bleeding Instructions Patient Instructions: DI for Acute Abdominal Pain Print Language Print Language: Hungarian Discharge ED Provider: Karel Carbajal General Adult HPI General Chief complaint: Abdominal Pain Stated complaint: rectal bleeding , abdominal pain Time Seen by Provider: 12/19/24 18:29 Mode of Arrival: Ambulatory Source of Information: Patient Description of Symptoms (Recalled from ER Triage Doc. by RN): Pt presents for evaluation of abdominal pain that started this AM. Pt states she had a bowel movement and when she wiped she saw bright red blood with clots at 10am. Pt states 1 hour ago she went to the bathroom again, and even more bright red blood that also in the toilet water . Denies nausea/vomiting. History of Present Illness HPI narrative: Please note that above description of symptoms, in this electronic medical record under categorization of recalled from ER triage doctor by RN are reflective of an initial nursing assessment, however, is not reflective of my full history and physical exam that was personally taken and clarified. Consequentially, this preceding description of symptoms, which may include the patient's categorized chief complaint in the EMR, do not reflect my personal clinical impression, and the ultimate description of history of present illness and patient stated complaints should be deferred to this section of the note. Unless stated otherwise or congruent with this section of the note, additional signs, symptoms, or incongruence should be interpreted as inaccurate with my clinical impression. Related Data Previous Rx's ?Medication ?Instructions ?Recorded albuterol sulfate 90 mcg/actuation 1 inh inhalation Q6H #1 ea 10/28/24 breath activated powder inhaler cetirizine 10 mg tablet (All Day 10 mg PO DAILY #30 tabs 10/28/24 Allergy (cetirizine)) fluticasone propionate 50 1 spray intranasal DAILY #16 grams 10/28/24 mcg/actuation nasal spray,suspension (Flonase Allergy Relief) Allergies Allergy/AdvReac Type Severity Reaction Status Date / Time No Known Allergies Allergy Verified 12/10/24 15:58 [facility] Disclaimer: The information contained in this section may have been updated after the patient was seen, as this information can be updated by other users. Medical History Encounter for laboratory testing for COVID-19 virus Gallstones Abdominal pain Cellulitis Exposure to COVID-19 virus Sinusitis Vomiting Dental disorder Pyelonephritis Gastroenteritis Abdominal pain, vomiting, and diarrhea Strep throat Influenza A Acute viral syndrome Hemorrhoids during Acute hemorrhoid Ureterolithiasis Ureterolithiasis Bronchitis Acute viral syndrome Pharyngitis Acute viral syndrome Abdominal pain, LLQ Hematuria Viral syndrome History of gastroesophageal reflux (GERD) Urinary tract infection Kidney stone Depression Anxiety Surgical History History of cholecystectomy History of appendectomy Social History Smoking Status: Unknown if ever smoked alcohol intake: never substance use type: denies use current occupational status: employed Travel in the last 8 weeks: None household members: none housing: other Other Medical History Have you received the Flu Vaccine for this season: Yes Have you received the Pneumonia Vaccine: No ROS Obtained: Yes All systems reviewed & no additional complaints except as documented Physical Exam General General appearance: alert Head Head exam: atraumatic and normocephalic Eye Eye exam: Present normal appearance, PERRL and EOMI Neck Neck exam: Present normal inspection, full ROM and trachea midline Respiratory Respiratory exam: Absent respiratory distress, wheezes, stridor, accessory muscle use or prolonged expiratory phase Cardiovascular Cardiovascular exam: Present other (Pulses equal symmetric in upper and lower extremities) Abdominal Exam Abdominal exam: Present soft; Absent distention, tenderness, guarding, rebound, rigidity or pulsatile mass Extremities Exam Extremities exam: Absent edema Neurological Exam Neurological exam: Present alert, oriented X3 and CN II-XII intact; Absent motor sensory deficit Skin Skin exam: Present warm and dry; Absent diaphoresis or erythema Medical Decision Making Medical Records Medical records reviewed: Yes I reviewed the patient's medical records. Screening: Per USPSTF and CDC recommendations, given the prevalence of disease in our region, it is our hospital?s policy to screen for HIV and viral Hepatitis for all patients aged 18 and over and those with ongoing risk factors. Rafa Inquiry Pt receiving controlled substance: No Rafa was queried for this patient: No Vital Signs: 12/19/24 17:01 Temperature 98 F Temperature Source Temporal Artery Scan Pulse Rate [Right] 85 Respiratory Rate 18 Blood Pressure [Right Arm] 172/82 H Blood Pressure Mean [Right Arm] 112 Blood Pressure Source [Right Arm] Automatic Cuff Blood Pressure Position [Right Arm] Sitting 02 Sat by Pulse Oximetry 100 Oxygen Delivery Method Room Air Lab Data Lab Results 12/19/24 18:05: Urine Color Yellow, Urine Appearance Clear, Urine pH 5.5, Ur Specific [place] >= 1.030, Urine Protein Negative, Urine Glucose (UA) Negative, Urine Ketones Negative, Urine Blood Small, Urine Nitrate Negative, Urine Bilirubin Negative, Urine Urobilinogen 0.2, Ur Leukocyte Esterase Negative, Urine HCG, Qual Negative 12/19/24 18:16: WBC 9.5, RBC 4.39, Hgb 12.9, Hct 38.6, MCV 87.9, MCH 29.4, MCHC 33.4, RDW 13.0, Plt Count 365, MPV 10.4, Neut % (Auto) 62.5, Lymph % (Auto) 27.5, [place] % (Auto) 8.2, Eos % (Auto) 1.2, Baso % (Auto) 0.4, Neut # (Auto) 5.9, Lymph # (Auto) 2.6, [place] # (Auto) 0.8, Eos # (Auto) 0.1, Baso # (Auto) 0.0, Sodium 139, Potassium 4.2, Chloride 103, Carbon Dioxide 25, Anion Gap 15.2 H, BUN 7, Creatinine 0.50 L, Estimated Creat Clear 264, Estimated GFR 149, Est GFR ( Amer) 180, Glucose 95, Lactate 1.0, Calcium 9.5, Total Bilirubin 0.5, AST 34, ALT 35, Alkaline Phosphatase 52, Total Protein 8.2, Albumin 4.9, G lobulin 3.3 H, Albumin/Globulin Ratio 1.5, Lipase 54 12/19/24 18:16 12/19/24 18:16 Orders (Tests/Meds): ORDERS Category Date Time Status CRP [C-Reactive Protein] Stat Lab 12/19/24 18:16 Received Complete Blood Count Auto Diff Stat Lab 12/19/24 18:16 Completed Comprehensive Metabolic Panel Stat Lab 12/19/24 18:16 Completed ESR [Erythrocyte Sedimentation Rate] Stat Lab 12/19/24 18:16 Received Lactic Acid Stat Lab 12/19/24 18:16 Completed Lipase Stat Lab 12/19/24 18:16 Completed UA [Urinalysis and Microscopic] Stat Lab 12/19/24 18:05 Results Urine , HCG Qual. Stat Lab 12/19/24 18:05 Completed Medical Decision Narrative: Patient presenting with rectal bleeding. Patient states that today she woke up and had cramping abdominal pain that was mild. Had bowel movement that was large clots and blood. States that not currently having pain at rest. No urinary symptoms, no vaginal discharge or bleeding. States that she has hemorrhoids, this is different. No family history of IBD, but family history of IBS History was obtained via conversation with patient. On arrival, patient hemodynamically stable, alert, oriented x4, appropriate, GCS 15, moving all extremities spontaneously, pupils equal and reactive to light. Full physical exam performed and significant for clinically well-appearing female no acute distress. Abdomen is soft, nontender, nondistended on my exam. No overlying skin changes. Cardiopulmonary exam normal. Patient asymptomatic at present. Differential includes gastritis, gastroenteritis, infectious versus inflammatory colitis, diverticular bleed, malignancy, among others. Labs are ordered. I independently interpreted. Nonactionable CBC with hemoglobin 12.9. Patient's chemistry nonactionable, lactate negative, lipase negative, urinalysis without concern for UTI. I consider doing a CT of the abdomen and pelvis, but patient has benign exam, nontachycardic, hypertensive, no lab abnormalities consistent with significant bleed, so I feel this is on necessary at this time. Conversation had with patient regarding this, she is agreeable. She is also agreeable to outpatient gastroenterology follow-up. Given patient presentation, workup, history, this most likely represents idiopathic rectal bleeding. Because patient at baseline without signs or symptoms of clinical decompensation, deemed appropriate for discharge. Results were relayed to patient who voiced understanding and were agreeable to outpatient management and follow up. I discussed my clinical impression with patient and answered all questions. At this time, the evidence for any other entities in the differential is insufficient to warrant any further testing or ED observation. This was explained as well. Advisory was given that persistent or worsening symptoms require further evaluation. I confirmed the understanding of this discussion. Manager Reliability disclaimer Much of this encounter note is an electronic hotel services sales representative spoken language to printed text. Electronic hotel services sales representative of the spoken language may permit errors. Although I have reviewed the note, some errors may still exist. Critical Care Critical Care Time Critical Care Time: No
[2024-12-19 19:56] VITALS: BP 156/78; PULSE 82; RESP 17; TEMP 36.8; O2SAT 100
[2024-12-19 20:06] LABS: Erythrocyte Sedimentation Rate 21 mm/hr (0-20)
[2024-12-19 21:24] LABS: Bacteria,Urine 1+ /lpf
== END 2024-12-19 19:56 | disposition home or self-care (01) ==
PROVIDERS: Emergency Provider Emergency Medicine; PCP Family Medicine
DX: K62.5 Hemorrhage of anus and rectum (principal); R10.9 Unspecified abdominal pain
CPT/HCPCS: 80053; 81001; 81025; 83605; 83690; 85025; 85651; 86140; 99283

== ENCOUNTER 2024-12-20 10:29 | Emergency (ER) | payer MEDICAID, SELFPAY ==
[2024-12-20] VITALS (8 sets, daily range): BP systolic 112–149; BP diastolic 62–101; PULSE 61–100; RESP 16–78; TEMP 36.6–36.8; O2SAT 95–99; BMI 37.4
--- NOTE | 2024-12-20 10:41 | HMH.EDGENADL ---
Discharge Plan Disposition Patient Disposition: Home, Self-Care Prescriptions Prescriptions: New polyethylene glycol 3350 [Miralax] 17 gram/dose powder 17 g PO DAILY 7 Days Qty: 119 0RF naproxen sodium 550 mg tablet 550 mg PO BID Qty: 20 0RF acetaminophen [Tylenol Extra Strength] 500 mg tablet 500 mg PO Q6H Qty: 120 0RF ondansetron 4 mg tablet,disintegrating 4 mg PO Q8H 4 Days Qty: 12 0RF No Action albuterol sulfate 90 mcg/actuation aerosol powdr breath activated 1 inh inhalation Q6H Qty: 1 2RF cetirizine [All Day Allergy (cetirizine)] 10 mg tablet 10 mg PO DAILY Qty: 30 0RF fluticasone propionate [Flonase Allergy Relief] 50 mcg/actuation spray,suspension 1 spray intranasal DAILY Qty: 16 0RF Rx Instructions: administer into each nostril Referrals Follow up/Referrals: Idalmis Benz APRN [Primary Care Provider] - See instructions Activity Restrictions/Add. Instructions Additional Instructions/Restrictions: Follow-up with your apprentice painter hand. I would recommend getting your transvaginal ultrasound as scheduled on the first and then have a repeat ultrasound in 6 to 8 weeks. Bleeding is likely secondary to an external hemorrhoid. Take MiraLAX daily for goal of having 1 soft stool daily. Clinical Impressions Clinical Impression: Acute hemorrhoid, Ovarian cyst Instructions Patient Instructions: DI for Hemorrhoids Print Language Print Language: Uzbek Discharge ED Provider: Layne Gonzalez General Adult HPI General Chief complaint: Abdominal Pain Stated complaint: rectal bleeding, stomach pain, vomiting, nausea Time Seen by Provider: 12/20/24 10:41 Related Data Previous Rx's ?Medication ?Instructions ?Recorded albuterol sulfate 90 mcg/actuation 1 inh inhalation Q6H #1 ea 10/28/24 breath activated powder inhaler cetirizine 10 mg tablet (All Day 10 mg PO DAILY #30 tabs 10/28/24 Allergy (cetirizine)) fluticasone propionate 50 1 spray intranasal DAILY #16 grams 10/28/24 mcg/actuation nasal spray,suspension (Flonase Allergy Relief) acetaminophen 500 mg tablet 500 mg PO Q6H #120 tabs 12/20/24 (Tylenol Extra Strength) naproxen sodium 550 mg tablet 550 mg PO BID #20 tabs 12/20/24 ondansetron 4 mg disintegrating 4 mg PO Q8H 4 days #12 tabs 12/20/24 tablet polyethylene glycol 3350 17 17 g PO DAILY 7 days #119 grams 12/20/24 gram/dose oral powder (Miralax) Allergies Allergy/AdvReac Type Severity Reaction Status Date / Time No Known Allergies Allergy Verified 12/10/24 15:58 PFSH PFS Disclaimer: The information contained in this section may have been updated after the patient was seen, as this information can be updated by other users. Medical History Encounter for laboratory testing for COVID-19 virus Gallstones Abdominal pain Cellulitis Exposure to COVID-19 virus Sinusitis Vomiting Dental disorder Pyelonephritis Gastroenteritis Abdominal pain, vomiting, and diarrhea Strep throat Influenza A Acute viral syndrome Hemorrhoids during Acute hemorrhoid Ureterolithiasis Ureterolithiasis Bronchitis Acute viral syndrome Pharyngitis Acute viral syndrome Abdominal pain, LLQ Hematuria Viral syndrome History of gastroesophageal reflux (GERD) Urinary tract infection Kidney stone Depression Anxiety Surgical History History of cholecystectomy History of appendectomy Social History Smoking Status: Never smoker alcohol intake: never substance use type: denies use current occupational status: employed Travel in the last 8 weeks: None household members: none housing: other Have you lived/traveled outside [place] in past 30 days?: No Contact w/someone who lives/traveled outside [place] past 30 days?: No Exposure to someone with infectious disease in past 14 days?: No Do you have a fever (greater than 100.4 F or 38 C)?: No Have you tested positive for COVID-19: No Exposed to someone with COVID-19 in past 14 days?: No Do you have a sore throat?: No Do you have a cough?: No Do you have any weakness?: No Do you have any diarrhea?: No Are you experiencing any unusual bleeding?: Yes Do you have any muscle aches/pain?: No Do you have any abdominal pain?: Yes Are you experiencing loss of taste or smell?: No Other Medical History Have you received the Flu Vaccine for this season: Yes Have you received the Pneumonia Vaccine: No ROS Obtained: Yes All systems reviewed & no additional complaints except as documented Physical Exam General General appearance: alert and in no apparent distress Respiratory Respiratory exam: Present normal lung sounds bilaterally; Absent respiratory distress Cardiovascular Cardiovascular exam: Present regular rate and normal rhythm Abdominal Exam Abdominal exam: Present soft, tenderness (Left upper quadrant) and guarding (Left upper quadrant) Rectal Exam Rectal exam: Present hemorrhoids (External) Neurological Exam Neurological exam: Present alert and oriented X3 Medical Decision Making Medical Records Screening: Per USPSTF and CDC recommendations, given the prevalence of disease in our region, it is our hospital?s policy to screen for HIV and viral Hepatitis for all patients aged 18 and over and those with ongoing risk factors. Rafa Inquiry Pt receiving controlled substance: No Vital Signs: 12/20/24 10:39 12/20/24 11:07 12/20/24 11:30 Temperature 98.3 F Temperature Source Oral Pulse Rate 70 61 Pulse Rate [Left Radial] 100 H Respiratory Rate 78 H Blood Pressure 149/99 H 130/76 Blood Pressure [Right Arm] 145/101 H Blood Pressure Mean Blood Pressure Mean [Right Arm] 115 Blood Pressure Source Blood Pressure Source [Right Arm] Automatic Cuff Blood Pressure Position [Right Arm] Sitting 02 Sat by Pulse Oximetry 98 97 99 Oxygen Delivery Method Room Air 12/20/24 12:31 12/20/24 13:00 12/20/24 13:30 Temperature Temperature Source Pulse Rate 72 68 74 Pulse Rate [Left Radial] Respiratory Rate Blood Pressure 112/62 118/68 117/70 Blood Pressure [Right Arm] Blood Pressure Mean 82 Blood Pressure Mean [Right Arm] Blood Pressure Source Blood Pressure Source [Right Arm] Blood Pressure Position [Right Arm] 02 Sat by Pulse Oximetry 95 98 99 Oxygen Delivery Method 12/20/24 14:32 12/20/24 14:37 Temperature 98.0 F 98 F Temperature Source Oral Pulse Rate 70 69 Pulse Rate [Left Radial] Respiratory Rate 16 18 Blood Pressure 116/72 124/78 Blood Pressure [Right Arm] Blood Pressure Mean Blood Pressure Mean [Right Arm] Blood Pressure Source Automatic Cuff Blood Pressure Source [Right Arm] Blood Pressure Position [Right Arm] 02 Sat by Pulse Oximetry Oxygen Delivery Method Room Air Room Air Lab Data Lab Results 12/20/24 11:00: WBC 7.4, RBC 4.52, Hgb 12.9, Hct 39.6, MCV 87.6, MCH 28.5, MCHC 32.6, RDW 13.1, Plt Count 370, MPV 10.3, Neut % (Auto) 62.3, Lymph % (Auto) 27.8, [place] % (Auto) 8.4, Eos % (Auto) 0.9, Baso % (Auto) 0.3, Neut # (Auto) 4.6, Lymph # (Auto) 2.1, [place] # (Auto) 0.6, Eos # (Auto) 0.1, Baso # (Auto) 0.0, ESR 22 H, Sodium 140, Potassium 4.0, Chloride 106, Carbon Dioxide 24, Anion Gap 14.0, BUN 7, Creatinine 0.60, Estimated Creat Clear 222, Estimated GFR 121, Est GFR ( Amer) 146, Glucose 93, Calcium 9.8, Total Bilirubin 0.7, AST 31, ALT 36, Alkaline Phosphatase 76, C-Reactive Protein 5.6 H, Total Protein 8.1, Albumin 4.8, Globulin 3.3 H, Albumin/Globulin Ratio 1.5, Lipase 65, Serum HCG, Qual Negative, Blood Type A Positive, Antibody Screen Negative 12/20/24 12:25: Urine Color Yellow, Urine Appearance Clear, Urine pH 7.0, Ur Specific [place] 1.025, Urine Protein Negative, Urine Glucose (UA) Negative, Urine Ketones Negative, Urine Blood Trace-i, Urine Nitrate Negative, Urine Bilirubin Negative, Urine Urobilinogen 0.2, Ur Leukocyte Esterase Trace, Urine RBC Occasional, Urine WBC 5-10, Ur Squamous Epith Cells 20-50, Urine Bacteria 1+, Urine Mucus 1+ 12/20/24 11:00 12/20/24 11:00 Orders (Tests/Meds): ED MEDICATIONS Discontinued Medications Generic Name Dose Route Start Last Admin Trade Name Freq PRN Reason Stop Dose Admin Lactated Ringer's 1,000 mls @ 999 mls/hr 12/20/24 10:51 12/20/24 11:01 Lactated Ringer's 1000 Ml Bag IV 12/20/24 11:51 999 mls/hr .Q1H1M ONE Administration Iopamidol 75 ml 12/20/24 12:08 12/20/24 12:09 Iopamidol-370 (76%);100ml Bottle IV 12/20/24 12:09 75 ml ONCE ONE Administration Ketorolac Tromethamine 15 mg 12/20/24 10:51 12/20/24 11:01 Ketorolac 30mg/Ml Vial IV 12/20/24 10:52 15 mg ONCE ONE Administration Ondansetron HCl 4 mg 12/20/24 10:51 12/20/24 11:01 Ondansetron 4mg/2ml Vial IV 12/20/24 10:52 4 mg ONCE ONE Administration Sodium Chloride 10 ml 12/20/24 12:08 12/20/24 12:09 Sodium Chloride 0.9% 10ml Syr (Rad Only) IV 12/20/24 12:09 10 ml ONCE ONE Administration ORDERS Category Date Time Status Type and Screen Stat BBK 12/20/24 11:[address] abdomen pelvis w con Stat Cat Scan 12/20/24 10:51 Completed C-Reactive Protein Stat Lab 12/20/24 11:00 Completed Complete Blood Count Auto Diff Stat Lab 12/20/24 11:00 Completed Comprehensive Metabolic Panel Stat Lab 12/20/24 11:00 Completed Erythrocyte Sedimentation Rate Stat Lab 12/20/24 11:00 Completed HCG Qualitative, Serum Stat Lab 12/20/24 11:00 Completed Lipase Stat Lab 12/20/24 11:00 Completed Urinalysis and Microscopic Stat Lab 12/20/24 12:25 Completed Urine Chlam/Gono/Trich, LUCIO Stat Lab 12/20/24 12:25 Received Medical Decision Narrative: In summary, this 24-year-old female presents to the emergency department today with bright red blood per rectum abdominal pain. On initial evaluation patient is hemodynamically stable saturating properly on room air afebrile no acute distress. Differential diagnosis includes but is not limited to diverticulitis gastroenteritis internal or external hemorrhoid inflammatory bowel disease. Based on these concerns, I ordered CBC CMP ESR CRP CT abdomen pelvis with IV contrast type and screen qualitative . Patient received IV fluid bolus Toradol Zofran for treatment. Labs personally reviewed demonstrate minimal elevation in ESR and CRP, negative test. CT imaging personally interpreted demonstrate complex fluid in right lower quadrant per radiology concerned for ruptured ovarian cyst. Additional differential includes endometriosis ectopic tubo-ovarian abscess, malignancy. test negative less concern for ectopic . Patient notes that she has had some pain with sex and has been following up with her apprentice painter hand has a transvaginal ultrasound scheduled on 12/24. Added PCR Neisseria gonorrhea and Chlamydia testing. Patient has low concern for sexually transmitted disease as is monogamous with 1 male partner. Patient has also had no fevers or chills. Instructed that she will receive a phone call if this test is positive and then patient should return to the emergency department for further evaluation of possible tubo-ovarian abscess. Stressed importance of follow-up with her apprentice painter hand on 12/24 and also a repeat ultrasound in 8 to 10 weeks. Based on physical exam patient's bright red blood per rectum is most likely associated with external hemorrhoid. Patient amendable to discharge with multimodal pain control bowel regimen and outpatient follow-up with gynecology. Critical Care Critical Care Time Critical Care Time: No
--- NOTE | 2024-12-20 10:51 | CT_ITS ---
FINAL REPORT TECHNIQUE: After the administration of oral and intravenous contrast, axial images were obtained through the abdomen and pelvis by computed tomography. The study was performed with techniques to keep radiation dose as low as reasonably achievable, (ALARA). Individual dose reduction techniques using automated exposure control or adjustment of mA and/or kV according to the patient's size were employed. CLINICAL HISTORY: LLQ abdominal pain COMPARISON: 08/16/2024 FINDINGS: Abdomen: The lung bases are clear. There is mild fatty infiltration of the liver. The gallbladder is surgically absent. The spleen, pancreas, adrenals and kidneys appear unremarkable. The aorta is normal in caliber. There is no free fluid or adenopathy. Pelvis: There are postoperative changes at the base of the cecum and the appendix is not visualized consistent with appendectomy. The urinary bladder is decompressed. There is a complex fluid collection in the right adnexal region and an associated small density measuring 1.8 cm. This is best seen on images [id number] and is probably related to a recently ruptured ovarian cyst. There is no free fluid or adenopathy. IMPRESSION: Complex fluid in the right adnexal region is likely related to a recently ruptured ovarian cyst. Follow-up ultrasound in 6 weeks or 10 weeks is recommended. Reviewed, Interpreted and Dictated by Milo Jones MD Transcribed by Haritha Webb Authenticated and [facility]
[2024-12-20] MEDS: KETOROLAC 30MG/ML VIAL 15 MG IV (11:01)
[2024-12-20] MEDS: LACTATED RINGERS 1000ML 1,000 ML 999 ML IV (11:01)
[2024-12-20] MEDS: ONDANSETRON 4MG/2ML VIAL 4 MG IV (11:01)
[2024-12-20 11:18] LABS: Albumin Level 4.8 g/dl (3.5-5.0); Basophils % 0.3 % (0.1-2.0); Chloride 106 mmol/L (98-107); Eosinophils # 0.1 K/mm3 (0.0-0.4); Eosinophils % 0.9 % (0.1-12.0); Hematocrit 39.6 % (37.0-47.0); Hemoglobin 12.9 g/dL (12.2-16.2); Lymphocytes # 2.1 K/mm3 (0.7-4.5); Lymphocytes % 27.8 % (10-50); Mean Corpuscular HGB Conc 32.6 g/dL (31.8-35.4); Mean Corpuscular Hemoglobin 28.5 pg (27.0-31.2); Mean Corpuscular Volume 87.6 fl (81-99); Mean Platelet Volume 10.3 fl (7.4-10.4); Monocytes # 0.6 K/mm3 (0.1-1.0); Monocytes % 8.4 % (1.7-9.3); Neutrophils # 4.6 K/mm3 (1.8-7.8); Neutrophils % 62.3 % (37.0-80.0); Platelet Count 370 K/mm3 (142-424); Red Blood Count 4.52 M/mm3 (4.20-5.40); Red Cell Distribution Width 13.1 % (11.5-17.5); Sodium 140 mmol/L (136-145); White Blood Count 7.4 K/mm3 (4.8-10.8)
[2024-12-20 11:21] LABS: Alanine Aminotransferase 36 U/L (12-78); Albumin/Globulin Ratio 1.5 (1.1-1.8); Alkaline Phosphatase 76 U/L (38-126); Aspartate Amino Transferase 31 U/L (14-36); Bilirubin,Total 0.7 mg/dl (0.2-1.3); Blood Urea Nitrogen 7 mg/dl (7-17); Carbon Dioxide 24 mmol/L (22.0-30.0); Creatinine Clearance Estimated 222 mL/min (50-200); Estimated Glomerular Filt Rate 121 ml/min (>60); GFR (African American) 146 ML/MIN (>60); Globulin 3.3 g/dL (1.3-3.2); Lipase 65 U/L (23-300); Total Protein,Serum 8.1 g/dl (6.3-8.2)
[2024-12-20 11:22] LABS: Calcium 9.8 mg/dl (8.4-10.2); Glucose 93 mg/dl (74-100)
[2024-12-20 11:27] LABS: C-Reactive Protein 5.6 mg/L (0-4)
[2024-12-20 11:39] LABS: HCG Qualitative, Serum Negative (Negative)
[2024-12-20 12:02] LABS: Erythrocyte Sedimentation Rate 22 mm/hr (0-20)
--- NOTE | 2024-12-20 12:07 | PC.NURSE ---
Pt taken for scans
[2024-12-20] MEDS: SODIUM CHLORIDE 0.9% 10ML SYR (RAD ONLY) 10 ML IV (12:09)
[2024-12-20] MEDS: IOPAMIDOL-370 (76%);100ML BOTTLE 75 ML IV (12:09)
--- NOTE | 2024-12-20 12:14 | PC.NURSE ---
Pt back from scans
--- NOTE | 2024-12-20 12:29 | PC.NURSE ---
urine sample collected and sent to lab at this time
[2024-12-20 12:32] LABS: Microscopic, Urine URINE MICROSCOPIC (MICROSCOPIC)
[2024-12-20 12:35] LABS: Appearance,Urine CLEAR (Clear); Bilirubin,Urine Negative (Negative); Blood, Urine TRACE-I (Negative); Color,Urine YELLOW (Yellow); Glucose,Urine (UA) Negative (Negative); Ketones,Urine Negative (Negative); Leukocyte Esterase,Urine TRACE (Negative); Nitrate,Urine Negative (Negative); Protein,Urine Negative (Negative); Specific Gravity, Urine 1.025 (1.005-1.030); Urobilinogen,Urine 0.2 EU/dl (0.2)
[2024-12-20 12:49] LABS: Bacteria,Urine 1+ /lpf; Mucus,Urine 1+ /lpf; RBC,Urine Occasional #/hpf (0-3); Squamous Epithelial Cell,Urine 20-50 #/hpf (0-5)
[2024-12-21 19:34] LABS: Chlamydia trachomatis Negative (Negative); Neisseria gonorrhoeae Negative (Negative); Trichomonas vaginalis Negative (Negative)
== END 2024-12-20 14:35 | disposition home or self-care (01) ==
PROVIDERS: Emergency Provider Student in an Organized Health Care Education/Training Program; PCP Family Medicine
DX: N83.209 Unspecified ovarian cyst, unspecified side (principal); K64.9 Unspecified hemorrhoids; K62.5 Hemorrhage of anus and rectum; R10.84 Generalized abdominal pain
CPT/HCPCS: 74177; 80053; 81001; 83690; 84703; 85025; 85651; 86140; 86850; 87491; 87591; 87661; 96365; 96374; 96375; 99285; J1885; J2405; J7120; Q9967

== ENCOUNTER 2024-12-24 10:17 | Outpatient (CLI) | payer MEDICAID, SELFPAY ==
--- NOTE | 2024-12-24 10:30 | US_ITS ---
PROCEDURE: US TRANSVAGINAL CLINICAL INDICATION: pelvic pain/dyspareunia COMPARISON: CT CT ABDOMEN PELVIS WO CON from 02/02/[address] ABDOMEN PELVIS W CON from 02/11/[address] ABDOMEN PELVIS W CON from 08/16/[address] ABDOMEN PELVIS W CON from 12/20/2024 FINDINGS: Transvaginal sonographic images of the pelvis were obtained. UTERUS: 8.5cm x 6.1cmx 4.6 cm anteverted with a combined endometrial thickness of 9.5mm. LEFT OVARY: 2.4cmx1.8 cmx1.2cm with a volume of 2.8ml. RIGHT OVARY: 4.1cmx 2.9 cmx2.3cm with a volume of 14.2ml. There are multiple small peripheral follicles giving the ovary a polycystic appearance. Both ovaries are seen and appear normal. Doppler flow to both ovaries are seen. There is trace fluid in the cul-de-sac. IMPRESSION: 1. Anteverted uterus normal in shape and size. The endometrium measures 9.5 mm and appears normal. 2. Right ovary contains multiple small follicles giving it a polycystic appearance. The left ovary appears normal. 3. There is trace fluid in the cul-de-sac. Dictated by: Donny Menezes MD 12/24/2024 11:54 Donny Menezes MD in [place] 12/24/2024 11:54
== END 2024-12-24 23:59 | disposition home or self-care (01) ==
LOC: RAD 10:18
PROVIDERS: PCP Family Medicine; Visit Provider Obstetrics & Gynecology
DX: R10.2 Pelvic and perineal pain (principal)
CPT/HCPCS: 76830

== ENCOUNTER 2025-03-15 04:31 | Emergency (ER) | payer MEDICAID, SELFPAY ==
--- OUTSIDE RECORDS SUMMARY | 2025-02-12 10:00 | XMS_ITS | Encounter Summary ---
Author Organization Healthcare Address [address] [place] [address] Care Team Providers Care Catalogue Illustrator Name Role Phone Vishal Munson MD Primary Care Provider [phone] Reason for Visit * Reason Comments Polycystic Ovary Syndrome PCOS [facility]records requested Trouble losing weight, increased hair growth (shaving face daily), irregular periods that sometimes miss months, severe pain in pelvis during periods LMP approximately 01/09 Encounter Details Date Type Department Care Team (Late st Contact Info) Description 02/12/2025 10:00 AM EDT Office Visit Obstetrics & Gynecology [address] [place] [address] Iman Pena, DIAPHRAGM BUILDER, CN [address] [facility] [address] [place] [address] PCOS (polycystic ovarian syndrome) (Primary Dx); Weight gain; Abnormal facial hair Social History Tobacco Use Types Packs/Day Years Used Date Smoking Tobacco: Never Smokeless Tobacco: Never Alcohol Use Standard Drinks/Week Comments Never 0 (1 standard drink = 0.6 oz pur e alcohol) PHQ-2 Answer Date Recorded Patient Health Questionnaire-2 Score 0 02/12/2025 [place] Depression Scale Answer Date Recorded Last EPDS Total Score Not on file 03/25/2024 The thought of harming myself has occurred to me . Never 03/25/2024 PHQ-2A Answer Date Recorded Patient Health Questionnaire-2 Score 0 09/04/2023 Comments No Sex and Gender Information Value Date Recorded Sex Assigned at Not on file Legal Sex Female 6:42 PM EDT Gender Identity Not on file Sexual Orientation Not on file documented as of this encounter Last Filed Vital Signs Vital Sign Reading Time Taken Comments Blood Pressure 128/75 02/12/2025 10:11 AM EDT Pulse 71 02/12/2025 10:11 AM EDT Temperature - - Respiratory Rate - - Oxygen Saturation 99% 02/12/2025 10:11 AM EDT Inhaled Oxygen Concentration - - Weight 97.6 kg (215 lb 0.9 oz) 02/12/2025 10:11 AM EDT Height 160 cm (5' 3 ) 02/12/2025 10:11 AM EDT Body Mass Index 38.1 02/12/2025 10:11 AM EDT documented in this encounter Functional Status * Over the past 2 weeks, how often have you been bothered by any of the following problems? Question Answer Date of Assessment Author Little interest or pleasure in doing things Not at all 02/12/2025 10:12 AM EDT Alissa Phillips RN Feeling down, depressed, or hopeless Not at all 02/12/2025 10:12 AM EDT Alissa Phillips RN Patient Health Questionnaire-2 Score 0 02/12/2025 10:12 AM EDT Alissa Phillips RN documented as of this encounter Miscellaneous Notes * Progress Notes - Iman Pena, LALIT, SHAWN - 02/12/2025 10:00 AM EDT Gynecology Progress Note Chief Complaint Patient presents with Polycystic Ovary Syndrome PCOS Had US done a [facility]. --records requested Trouble losing weight, increased hair growth (shaving face daily), irregular periods that sometimesmiss months, severe pain in pelvis during periods LMP approximately 01/09 Alanna Velazco is a 25 yo ( x3) who presents with concerns for PCOS. She notes irregular menses - history of going more than a year. Most recently went 4 months. Facial hair growth - has to shave daily and can see it again before the end of the day. Acne in waves. Painful menses. She says she was seen in the ER for a ruptured ovarian cyst. She had US in [place] that she states was consistentwith PCOS. She reports all they did was tell her to lose weight and push control and she did not feel comfortable with that and presents for 2nd opinion. Review of Systems Constitutional: Trouble losing weight HENT: Facial hair growth (shaving face daily) Eyes: Negative. Respiratory: Negative. Cardiovascular: Negative. Gastrointestinal: Negative. Endocrine: Negative. Genitourinary: Positive for menstrual problem (irregular menses) and pelvic pain (pain during menses). Musculoskeletal: Negative. Skin: acne Allergic/Immunologic: Negative. Neurological: Negative. Hematological: Negative. Psychiatric/Behavioral: Negative. Objective Visit Vitals BP 128/75 Pulse 71 Physical Exam Constitutional: Appearance: Normal appearance. HENT: Head: Normocephalic. Right Ear: External ear normal. Left Ear: External ear normal. Cardiovascular: Rate and Rhythm: Normal rate. Pulmonary: Effort: Pulmonary effort is normal. Musculoskeletal: General: Normal range of motion. Neurological: General: No focal deficit present. Mental Status: She is alert and oriented to person, place, and time. Skin: General: Skin is warm and dry. Comments: Facial hair growth Psychiatric: Mood and Affect: Mood normal. Behavior: Behavior normal. Thought Content: Thought content normal. Judgment: Judgment normal. Vitals and nursing note reviewed. Labs: Imaging: Records requested. Assessment/Plan Assessment & Plan PCOS (polycystic ovarian syndrome) Orders: CBC; Future TSH; Future T4, free; Future ESTRADIOL, ADULT PREMENOPAUSAL, FEMALE; Future Follicle Stimulating Hormone, Serum; Future Hemoglobin A1c; Future Lipid Profile, Plasma; Future Vitamin D 1,25 Dihydroxy; Future Vitamin B12, Serum; Future Testosterone, Free and Total; Future Prolactin, Serum; Future Lipid panel; Future Weight gain Orders: CBC; Future TSH; Future T4, free; Future ESTRADIOL, ADULT PREMENOPAUSAL, FEMALE; Future Follicle Stimulating Hormone, Serum; Future Hemoglobin A1c; Future Lipid Profile, Plasma; Future Vitamin D 1,25 Dihydroxy; Future Vitamin B12, Serum; Future Testosterone, Free and Total; Future Prolactin, Serum; Future Lipid panel; Future Abnormal facial hair - Discussed PCOS including diagnostic criteria, increased risk for diabetes, importance of having menses or control such as IUD for endometrial protection. -Discussed weight loss can be helpful but very difficult with PCOS. Reviewed option for metformin given suspected insulin resistance or scheduling visit with [facility] to discuss further weight loss medication. She desires to consider. Will start with labs today - Discussed excess facial hair, intro to OCP vs spironolactone - discuss more next. - Reviewed options for control for cycle control. Discussed all options vs metformin vs weight loss vs watching and notifying clinic if > 3 months without menses, she has decided on doing a Mirena IUD. Discussed premedication with ibuprofen, what to expect for insertion and after, and importance of no intercourse x 2 weeks prior to insertion. She v/u. Offered placement today but declines. - Labs today, all questions answered. Fu for Mirena IUD insertion and discuss spironolactone. A total of 38 minutes was spent on this visit with at least more than 50% of the encounter spent incounseling and/or coordinating care including reviewing previous notes, counseling the patient on their identified issues as indicated in the note, discussing previous and/or ordered tests or imaging, prescribing/refilling medications, and documenting the findings in this note, as well as laying out a specific plan of action for this patient. documented in this encounter Plan of Treatment Not on file documented as of this encounter Goals Goal Patient Goal Type Associated Problems Recent Progress Patient-Stated? Author Delayed Delivery Care Plan CPM S22 PP LABOR (OBSTETRICS) No Open Scheduling, Background documented as of this encounter Procedures Procedure Name Priority Date/Time Associated Diagnosis Comments ALBUMIN, SERUM Routine 02/12/2025 10:47 AM EDT PCOS (polycystic ovarian syndrome) Weight gain TESTOSTERONE, FREE AND TOTAL (ORDERABLE) Routine 02/12/2025 10:47 AM EDT PCOS (polycystic ovarian syndrome) Weight gain TESTOSTERONE, FREE AND TOTAL Routine 02/12/2025 10:47 AM EDT PCOS (polycystic ovarian syndrome) Weight gain VITAMIN D, 1, 25-DIHYDROXY Routine 02/12/2025 10:47 AM EDT PCOS (polycystic ovarian syndrome) Weight gain PROLACTIN, SERUM Routine 02/12/2025 10:4 7 AM EDT PCOS (polycystic ovarian syndrome) Weight gain ESTRADIOL, ADULT PREMENOPAUSAL, FEMALE Routine 02/12/2025 10:47 AM EDT PCOS (polycystic ovarian syndrome) Weight gain CBC W/O DIFFERENTIAL Routine 02/12/2025 10:47 AM EDT PCOS (polycystic ovarian syndrome) Weight gain TSH Routine 02/12/2025 10:47 AM EDT PCOS (polycystic ovarian syndrome) Weight gain FREE T4, PLASMA Routine 02/12/2025 10:47 AM EDT PCOS (polycystic ovarian syndrome) Weight gain HEMOGLOBIN A1C Routine 02/12/2025 10:47 AM EDT PCOS (polycystic ovarian syndrome) Weight gain FOLLICLE STIMULATING HORMONE, SERUM Routine 02/12/2025 10:47 AM EDT PCOS (polycystic ovarian syndrome) Weight gain VITAMIN B12, SERUM Routine 02/12/2025 10 :47 AM EDT PCOS (polycystic ovarian syndrome) Weight gain LIPID PROFILE, PLASMA Routine 02/12/2025 10:47 AM EDT PCOS (polycystic ovarian syndrome) Weight gain documented in this encounter Results * Albumin, Serum (02/12/2025 10:47 AM EDT) Blood Venous blood specimen / Unknown Venipuncture / Unknown 02/12/2025 10:47 AM EDT 02/12/2025 1:55 PM EDT us Iman Pena APRN, CNM LAB BLOOD ORDERABLES Fi nal Result [facility] [address] [place] [address] * Testosterone, Free and Total (02/12/2025 10:47 AM EDT) Testosterone Total 43.6 ng/dL 02/15/2025 3:09 PM EDT [facility] Sex Hormone Binding Globulin 31.7 11.7 - 137.2 nmol/L 02/15/2025 3:09 PM EDT [facility] Free Testosterone - Calculated (pg/mL) 7.7 1.1 - 12.9 pg/mL 02/15/2025 3:09 PM EDT [facility] Free Testosterone (%) 1.8 % 02/15/2025 3:09 PM EDT [facility] ALBUMIN CALCULATED TOX 4.8 g/dL 02/15/2025 3:09 PM EDT [facility] Blood Venous blood specimen / Unknown Venipuncture / Unknown 02/12/2025 10:47 AM EDT 02/12/2025 1:55 PM EDT Narrative [facility] - 02/15/2025 3:09 PM EDT Method: o SHBG: Electrochemiluminescence immunoassay o Total Testosterone: LC-MS/MS o Free T: Calculation Free testosterone concentration is calculated using total testosterone (measured by mass spectrometry) and the binding constants between testosterone, sex hormone-binding globulin (SHBG) and albumin. This test was developed and its performance characteristics determined by [facility]. It has not been cleared or approved by the FDA. The laboratory is regulated under CLIA as qualified to perform high-complexity testing. This test is used for clinical purposes. Iman Pena APRN, CNM LAB BLOOD ORDERABLES nal Result [facility] [address] [place] [address] * Prolactin, Serum (02/12/2025 10:47 AM EDT) Prolactin, Serum 18.1 4.4 - 23.3 ng/mL 02/12/2025 3:12 PM EDT [facility] Blood Venous blood specimen / Unknown Venipuncture / Unknown 02/12/2025 10:47 AM EDT 02/12/2025 1:55 PM EDT Narrative [facility] - 02/12/2025 3:12 PM EDT Performed by [employer] electrochemiluminescent immunoassay which is traceable to the Prolactin 3rd IRP (WHO 84/500). Results obtained with different test methods or kits cannot be used interchangeably. Iman Pena APRN, CNM LAB BLOOD ORDERABLES Fi nal Result Performing Organization Address City/[facility]/ZIP Co de Phone Number [facility] [address] [place] [address] * Vitamin B12, Serum (02/12/2025 10:47 AM EDT) Vitamin B12, Serum 287 210 - 1,033 pg/mL 02/12/2025 2:57 PM EDT [facility] Blood Venous blood specimen / Unknown Venipuncture / Unknown 02/12/2025 10:47 AM EDT 02/12/2025 1:55 PM EDT Iman Pena APRN, CNM LAB BLOOD ORDERABLES Fi nal Result Performing Organization Address City/[facility]/ZIP Co de Phone Number [facility] [address] [place] [address] * Vitamin D 1,25 Dihydroxy (02/12/2025 10:47 AM EDT) VITAMIN D, 1, 25-DIHYDROXY 58.6 19.9 - 79.3 pg/mL 02/13/2025 4:57 AM EDT [facility] Blood Venous blood specimen / Unknown Venipuncture / Unknown 02/12/2025 10:47 AM EDT 02/12/2025 1:55 PM EDT Iman Pena APRN, CNM LAB BLOOD ORDERABLES Fi nal Result Performing Organization Address City/[facility]/ZIP Co de Phone Number [facility] [address] [place] [address] * (ABNORMAL) Lipid Profile, Plasma (02/12/2025 10:47 AM EDT) Cholesterol, Plasma 184 <200 mg/dL 02/12/2025 2:42 PM EDT [facility] Comment: Cholesterol Reference Range (age >17 years): Desirable <200 mg/dL Borderline 200 to 239 mg/dL Undesirable >239 mg/dL HDL 56 >=50 mg/dL 02/12/2025 2:42 PM EDT [facility] Comment: HDL Cholesterol Reference Ranges (age >17 years): Female, acceptable > or = 50 mg/dL Male, acceptable > or = 40 mg/dL Triglycerides, Plasma 85 <150 mg/dL 02/12/2025 2:42 PM EDT [facility] Comment: Triglyceride Reference Range (age >17 years): Desirable: <150 mg/dL Borderline high: 150 to 199 mg/dL High: 200 to 499 mg/dL Very high: >499 mg/dL Increased risk of pancreatitis: >1000 mg/dL Cholesterol/HDL Ratio 3 02/12/2025 2:42 PM EDT [facility] LDL, Calculated 112(H) <100 mg/dL 2:42 PM EDT [facility] Comment: LDL Cholesterol Reference Range (age >17 years): Optimal: <100 mg/dL Near or above optimal: 100 - 129 mg/dL Borderline high: 130 - 159 mg/dL High: 160 - 189 mg/dL Very high: >189 mg/dL LDL Cholesterol Reference Range (age <18 years): Desirable: <110 mg/dL Borderline: 110 - 129 mg/dL Undesirable: >130 mg/dL LDL Cholesterol is calculated using the Amezquita/NIH equation. Fasting greater than or equal to 12 hours? Unknown 02/12/2025 2:42 PM EDT [facility] Blood Venous blood specimen / Unknown Venipuncture / Unknown 02/12/2025 10:47 AM EDT 02/12/2025 1:55 PM EDT Iman Pena APRN, CNM LAB BLOOD ORDERABLES Fi nal Result [facility] [address] [place] [address] * Hemoglobin A1c (02/12/2025 10:47 AM EDT) Hemoglobin A1c 5.1 <5.7 % 02/12/2025 3:15 PM EDT [facility] Blood Venous blood specimen / Unknown Venipuncture / Unknown 02/12/2025 10:47 AM EDT 02/12/2025 1:55 PM EDT Narrative [facility] - 02/12/2025 3:15 PM EDT HA1C Interpretive Data: Diagnosis of Diabetes: Diabetic > or = 6.5% Pre-diabetic 5.7 to 6.4% Non-diabetic < or = 5.6% Glycemic Targets for Type I and Type II Diabetics: Non- Adults <7.0% Adults <6.0% Children and Adolescents <7.5% Source: [place] [employer]. Standards of medical care in diabetes,2017. Diabetes Care.2017:40 (suppl 1):S1-S135. us Iman Pena APRN, CNM LAB BLOOD ORDERABLES Fi nal Result [facility] [address] [place] [address] * Follicle Stimulating Hormone, Serum (02/12/2025 10:47 AM EDT) FSH 4.8 mIU/mL 02/12/2025 2:5 7 PM EDT [facility] Blood Venous blood specimen / Unknown Venipuncture / Unknown 02/12/2025 10:47 AM EDT 02/12/2025 1:55 PM EDT Narrative [facility] - 02/12/2025 2:57 PM EDT FSH Female Reference Ranges: Nate Stage 1: 0.6 - 8.4 mIU/mL Nate Stage 2: 0.6 - 8.9 mIU/mL Nate Stage 3: 0.5 - 8.9 mIU/mL Nate Stage 4-5: 0.7 - 9.3 mIU/mL Adult Female >17 years: Follicular: 3.5 - 12.5 mIU/mL Midcycle: 4.7 - 21.5 mIU/mL Luteal: 1.7 - 7.7 mIU/mL Postmenopause: 25.8 - 134.8 mIU/mL : low to undetectable Iman Pena APRN, CNM LAB BLOOD [place] [address] * ESTRADIOL, ADULT PREMENOPAUSAL, FEMALE (02/12/2025 10:47 AM EDT) Estradiol 166 pg/mL 02/12/2025 5:3 7 PM EDT [facility] Blood Venous blood specimen / Unknown Venipuncture / Unknown 02/12/2025 10:47 AM EDT 02/12/2025 1:[address] [facility] - 02/12/2025 5:37 PM EDT Females >17 Y (pg/mL): Follicular Phase 26 -233 Ovulatory Peak Phase 60 - 600 Luteal Phase 30 - 305 Post-Menopausal <138 Iman Pena APRN, SHAWN LAB BLOOD ORDERABLES Fi nal Result Performing Organization Address [facility] [place] [address] * T4, free (02/12/2025 10:47 AM EDT) Free T4, Plasma 1.0 0.8 - 1.7 ng/dL 02/12/2025 2:42 PM EDT [facility] Blood Venous blood specimen / Unknown Venipuncture / Unknown 02/12/2025 10:47 AM EDT 02/12/2025 1:55 PM EDT Narrative [facility] - 02/12/2025 2:42 PM EDT Free T4 Trimester Specific Ranges 1st Trimester 0.9 - 1.50 ng/dL 2nd Trimester 0.7 - 1.40 ng/dL 3rd Trimester 0.7 - 1.24 ng/dL Iman Pena APRN, CNM LAB BLOOD ORDERABLES Fi nal Result Performing Organization Address City/[facility]/ZIP Co de Phone Number [address] [place] [address] * (ABNORMAL) TSH (02/12/2025 10:47 AM EDT) Thyroid Stimulating Hormone, Plasma 0.37(L) 0.40 - 4.20 uIU/mL 02/12/2025 2:42 PM EDT [facility] Blood Venous blood specimen / Unknown Venipuncture / Unknown 02/12/2025 10:47 AM EDT 02/12/2025 1:55 PM EDT Narrative [facility] - 02/12/2025 2:42 PM EDT Trimester Specific Ranges TSH ( IU/mL) 1st Trimester 0.1 - 3.0 2nd Trimester 0.19 - 4.06 3rd Trimester 0.3 - 3.7 Iman Pena APRN, CNM LAB BLOOD ORDERABLES Fi nal Result [facility] [address] [place] [address] * CBC (02/12/2025 10:47 AM EDT) Pathologist [facility] WBC Count 7.00 3.70 - 10.30 10*3/uL LAB HEMATOLOGY METHOD 02/12/2025 2:18 PM EDT [facility] RBC Count 4.53 3.90 - 5.20 10*6/uL LAB HEMATOLOGY METHOD 02/12/2025 2:18 PM EDT [facility] HGB 13.1 11.2 - 15.7 g/dL LAB HEMATOLOGY METHOD 02/12/2025 2:18 PM EDT [facility] HCT 39.6 34.0 - 45.0 % LAB HEMATOLOGY METHOD 02/12/2025 2:18 PM EDT [facility] Platelet Count 352 155 - 369 10*3/uL LAB HEMATOLOGY METHOD 02/12/2025 2:18 PM EDT [facility] MCV 87 79 - 98 fL LAB HEMATOLOGY METHOD 02/12/2025 2:18 PM EDT [facility] MCH 28.9 26.0 - 32.0 pg LAB HEMATOLOGY METHOD 02/12/2025 2:18 PM EDT [facility] MCHC 33.1 30.7 - 35.5 g/dL LAB HEMATOLOGY METHOD 02/12/2025 2:18 PM EDT [facility] RDW 12.8 11.5 - 14.5 % LAB HEMATOLOGY METHOD 02/12/2025 2:18 PM EDT [facility] MPV 11.4 8.8 - 12.5 fL LAB HEMATOLOGY METHOD 02/12/2025 2:18 PM EDT [facility] nRBC 0.0 <=0.0 per 100 WBCs LAB HEMATOLOGY METHOD 02/12/2025 2:18 PM EDT [facility] Blood Venous blood specimen / Unknown Venipuncture / Unknown 02/12/2025 10:47 AM EDT 02/12/2025 1:55 PM EDT us Iman Pena APRN, SHAWN LAB BLOOD ORDERABLES Fi nal Result [facility] [address] [place] [address] documented in this encounter Visit Diagnoses Diagnosis PCOS (polycystic ovarian syndrome)- Primary Polycystic ovaries Weight gain Other symptoms concerning nutrition, metabolism, and development Abnormal facial hair documented in this encounter Additional Health Concerns Active Problems Noted Date Diagnosed Date CPM S22 PP LABOR (OBSTETRICS) 07/19/2023 Assessment Noted Time A fall risk assessment has been complete d for the patient 02/12/2025 10:12 AM EDT A Body Mass Index follow-up plan has been documented for the patient 02/13/2025 11:05 AM EDT documented as of this encounter Care Teams Catalogue Illustrator Relationship Specialty Start Date End Date Vishal Munson MD [address] [place] [id number] PCP - General 02/05/21 documented as of this encounter
--- OUTSIDE RECORDS SUMMARY | 2025-02-12 10:15 | XMS_ITS | Encounter Summary ---
Author Organization Healthcare Address [address] [place] [address] Care Team Providers Care Payroll Accounting Specialist Name Role Phone Vishal Munson MD Primary Care Provider [phone] Reason for Visit * Reason Comments Labs Labs with visit Encounter Details Date Type Department Care Team (Latest Contact Info) Description 02/12/2025 10:15 AM EDT Clinical Support Obstetrics & Gynecology [address] [place] [address] PCOS (polycystic ovarian syndrome) (Primary Dx) Social History Tobacco Use Types Packs/Day Years Used Date Smoking Tobacco: Never Smokeless Tobacco: Never Alcohol Use Standard Drinks/Week Comments Never 0 (1 standard drink = 0.6 oz pur e alcohol) PHQ-2 Answer Date Recorded Patient Health Questionnaire-2 Score 0 02/12/2025 [place] Depression Scale Answer Date Recorded Last EPDS [...] on file documented as of this encounter Functional Status * Over the [...] as of this encounter Miscellaneous Notes * Clinician Note - Rachel Argueta, RN - 02/12/2025 10:15 AM EDT Labs with visit documented in this encounter Plan of Treatment Not on file documented as of this encounter Goals Goal Patient Goal Type Associated Problems Recent Progress Patient-Stated? Author Delayed Delivery Care Plan CPM S22 PP LABOR (OBSTETRICS) No Open Scheduling, Background documented as of this encounter Visit Diagnoses Diagnosis PCOS (polycystic ovarian syndrome)- Primary Polycystic ovaries documented in this encounter Additional Health Concerns Active Problems Noted Date Diagnosed Date CPM S22 PP LABOR (OBSTETRICS) 07/19/2023 Assessment Noted Time A fall risk assessment has been complete d for the patient 02/12/2025 10:12 AM EDT A Body Mass Index follow-up plan has been documented for the patient 02/13/2025 11:05 AM EDT documented as of this encounter Care Teams Payroll Accounting Specialist Relationship Specialty Start Date End Date Vishal Munson MD [address] [place] [address] PCP - General 02/05/21 documented as of this encounter
[2025-03-15] VITALS (7 sets, daily range): BP systolic 109–167; BP diastolic 54–99; PULSE 57–89; RESP 16; TEMP 36.4–36.9; O2SAT 96–98; BMI 36.6
--- NOTE | 2025-03-15 04:36 | HMH.EDGENADL ---
Discharge Plan Disposition Patient Disposition: Home, Self-Care Prescriptions Prescriptions: New sulfamethoxazole-trimethoprim 800-160 mg tablet 1 tab PO BID 6 Days Qty: 12 0RF No Action albuterol sulfate 90 mcg/actuation aerosol powdr breath activated 1 inh inhalation Q6H Qty: 1 2RF cetirizine [All Day Allergy (cetirizine)] 10 mg tablet 10 mg PO DAILY Qty: 30 0RF fluticasone propionate [Flonase Allergy Relief] 50 mcg/actuation spray,suspension 1 spray intranasal DAILY Qty: 16 0RF Rx Instructions: administer into each nostril polyethylene glycol 3350 [Miralax] 17 gram/dose powder 17 g PO DAILY 7 Days Qty: 119 0RF naproxen sodium 550 mg tablet 550 mg PO BID Qty: 20 0RF acetaminophen [Tylenol Extra Strength] 500 mg tablet 500 mg PO Q6H Qty: 120 0RF ondansetron 4 mg tablet,disintegrating 4 mg PO Q8H 4 Days Qty: 12 0RF Referrals Follow up/Referrals: Idalmis Benz APRN [Primary Care Provider, Family Practice] - See instructions Activity Restrictions/Add. Instructions Additional Instructions/Restrictions: Please take antibiotics as prescribed for treatment of kidney infection. Please follow-up with your primary care provider. Please return to the emergency department if you develop any new or worsening symptoms or become concerned for your health. Clinical Impressions Clinical Impression: Pyelonephritis Print Language Print Language: Welsh Discharge ED Provider: Abdoulaye Schneider General Adult HPI General Chief complaint: PAIN Stated complaint: pain L side back Time Seen by Provider: 03/15/25 04:36 History of Present Illness HPI narrative: 25-year-old female with history of pyelonephritis, kidney stones, ovarian cyst presents for progressive urinary symptoms over the last 3 to 4 days, now with left-sided back pain. She reports the pain does not feel like when she has had kidney stones in the past, but it does feel like when she had a kidney infection in the past. She reports that she has had urinary pressure and urgency over the last few days. Denies any fevers. Related Data Previous Rx's ?Medication ?Instructions ?Recorded albuterol sulfate 90 mcg/actuation 1 inh inhalation Q6H #1 ea 10/28/24 breath activated powder inhaler cetirizine 10 mg tablet (All Day 10 mg PO DAILY #30 tabs 10/28/24 Allergy (cetirizine)) fluticasone propionate 50 1 spray intranasal DAILY #16 grams 10/28/24 mcg/actuation nasal spray,suspension (Flonase Allergy Relief) acetaminophen 500 mg tablet 500 mg PO Q6H #120 tabs 12/20/24 (Tylenol Extra Strength) naproxen sodium 550 mg tablet 550 mg PO BID #20 tabs 12/20/24 ondansetron 4 mg disintegrating 4 mg PO Q8H 4 days #12 tabs 12/20/24 tablet polyethylene glycol 3350 17 17 g PO DAILY 7 days #119 grams 12/20/24 gram/dose oral powder (Miralax) sulfamethoxazole 800 1 tab PO BID 6 days #12 tabs 03/15/25 mg-trimethoprim 160 mg tablet Allergies Allergy/AdvReac Type Severity Reaction Status Date / Time No Known Allergies Allergy Verified 12/10/24 15:58 [facility] Disclaimer: The information contained in this section may have been updated after the patient was seen, as this information can be updated by other users. Medical History Encounter for laboratory testing for COVID-19 virus Gallstones Abdominal pain Cellulitis Exposure to COVID-19 virus Sinusitis Vomiting Dental disorder Pyelonephritis Gastroenteritis Abdominal pain, vomiting, and diarrhea Strep throat Influenza A Acute viral syndrome Hemorrhoids during Acute hemorrhoid Ureterolithiasis Ureterolithiasis Bronchitis Acute viral syndrome Pharyngitis Acute viral syndrome Abdominal pain, LLQ Hematuria Viral syndrome History of gastroesophageal reflux (GERD) Urinary tract infection Kidney stone Depression Anxiety Surgical History History of cholecystectomy History of appendectomy Social History Smoking Status: Never smoker alcohol intake: never substance use type: denies use current occupational status: employed Travel in the last 8 weeks?: None household members: none housing: other Have you lived/traveled outside [place] in past 30 days?: No Contact w/someone who lives/traveled outside US past 30 days?: No Exposure to someone with infectious disease in past 14 days?: No Do you have a fever (greater than 100.4 F or 38 C)?: No Have you tested positive for COVID-19?: No Exposed to someone with COVID-19 in past 14 days?: No Do you have a sore throat?: No Do you have a cough?: No Do you have any weakness?: No Do you have any diarrhea?: No Are you experiencing any unusual bleeding?: No Do you have any muscle aches/pain?: No Do you have any abdominal pain?: No Are you experiencing loss of taste or smell?: No Other Medical History Have you received the Flu Vaccine for this season: Yes Have you received the Pneumonia Vaccine: No ROS Obtained: Yes All systems reviewed & no additional complaints except as documented Physical Exam General General appearance: alert and in no apparent distress Head Head exam: atraumatic and normocephalic Eye Eye exam: Present normal appearance, PERRL and EOMI ENT ENT exam: Present normal oropharynx and normal external ear exam Neck Neck exam: Present normal inspection and full ROM Chest Chest inspection: Present normal inspection and symmetric chest wall rise; Absent tenderness Respiratory Respiratory exam: Present normal lung sounds bilaterally; Absent respiratory distress Cardiovascular Cardiovascular exam: Present regular rate and normal rhythm Abdominal Exam Abdominal exam: Present soft; Absent distention, tenderness or guarding Extremities Exam Extremities exam: Present normal inspection; Absent edema or joint swelling Back Exam Back exam: Present normal inspection and CVA tenderness (L) Neurological Exam Neurological exam: Present alert and oriented X3; Absent motor sensory deficit Psychiatric Psychiatric exam: Present normal affect and normal mood Skin Skin exam: Present warm, dry and normal color Lymphatic Lymphatic Findings: no adenopathy Medical Decision Making Medical Records Medical records reviewed: Yes I reviewed the patient's medical records. Screening: Per USPSTF and CDC recommendations, given the prevalence of disease in our region, it is our hospital?s policy to screen for HIV and viral Hepatitis for all patients aged 18 and over and those with ongoing risk factors. Rafa Inquiry Pt receiving controlled substance: No Rafa was queried for this patient: No Vital Signs: 03/15/25 04:37 03/15/25 04:44 03/15/25 05:00 Temperature 98.5 F Temperature Source Oral Pulse Rate 74 69 Pulse Rate [Left] 89 Respiratory Rate 16 Blood Pressure 153/89 H 153/99 H Blood Pressure [Right Arm] 153/89 H Blood Pressure Mean 108 117 Blood Pressure Mean [Right Arm] 110 Blood Pressure Source [Right Arm] Automatic Cuff Blood Pressure Position Blood Pressure Position [Right Arm] Sitting 02 Sat by Pulse Oximetry 98 98 97 Oxygen Delivery Method Room Air 03/15/25 05:30 03/15/25 06:01 03/15/25 06:30 Temperature 97.6 F Temperature Source Pulse Rate 57 L 68 80 Pulse Rate [Left] Respiratory Rate 16 Blood Pressure 167/86 H 109/54 L 114/76 Blood Pressure [Right Arm] Blood Pressure Mean 113 79 88 Blood Pressure Mean [Right Arm] Blood Pressure Source [Right Arm] Blood Pressure Position Blood Pressure Position [Right Arm] 02 Sat by Pulse Oximetry 96 96 98 Oxygen Delivery Method 03/15/25 06:36 Temperature 97.6 F Temperature Source Oral Pulse Rate 80 Pulse Rate [Left] Respiratory Rate 16 Blood Pressure 114/76 Blood Pressure [Right Arm] Blood Pressure Mean Blood Pressure Mean [Right Arm] Blood Pressure Source [Right Arm] Blood Pressure Position Sitting Blood Pressure Position [Right Arm] 02 Sat by Pulse Oximetry Oxygen Delivery Method Room Air Lab Data Lab results reviewed: Yes I reviewed the patient's lab results. Lab Results 03/15/25 04:35: Urine Color Yellow, Urine Appearance Clear, Urine pH 6.0, Ur Specific [place] 1.025, Urine Protein Negative, Urine Glucose (UA) Negative, Urine Ketones Negative, Urine Blood 2+ A, Urine Nitrate Negative, Urine Bilirubin Negative, Urine Urobilinogen 0.2, Ur Leukocyte Esterase Negative, Urine RBC 5-10, Urine WBC 5-10, Ur Squamous Epith Cells 3-5, Urine Bacteria 1+, Urine HCG, Qual Negative 03/15/25 04:36: WBC 8.9, RBC 4.23, Hgb 12.6, Hct 37.5, MCV 88.7, MCH 29.8, MCHC 33.6, RDW 12.7, Plt Count 360, MPV 11.1 H, Neut % (Auto) 53.5, Lymph % (Auto) 34.8, [place] % (Auto) 9.7 H, Eos % (Auto) 1.6, Baso % (Auto) 0.2, Neut # (Auto) 4.8, Lymph # (Auto) 3.1, [place] # (Auto) 0.9, Eos # (Auto) 0.1, Baso # (Auto) 0.0, Sodium 137, Potassium 3.7, Chloride 100, Carbon Dioxide 28, Anion Gap 12.7, BUN 11, Creatinine 0.70, Estimated Creat Clear 184, Estimated GFR 100, Est GFR ( Amer) 121, Glucose 98, Calcium 10.0, Total Bilirubin 0.8, AST 28, ALT 20, Alkaline Phosphatase 71, Total Protein 8.0, Albumin 4.3, Globulin 3.7 H, Albumin/Globulin Ratio 1.2 03/15/25 04:36 03/15/25 04:36 Orders (Tests/Meds): ED MEDICATIONS Discontinued Medications Generic Name Dose Route Start Last Admin Trade Name Freq PRN Reason Stop Dose Admin Ceftriaxone Sodium 1 gm/ 50 mls @ 100 mls/hr 03/15/25 05:43 03/15/25 05:52 Sodium Chloride IV 03/15/25 06:12 100 mls/hr ONCE ONE Administration ORDERS Category Date Time Status CT abdomen pelvis wo con Stat Cat Scan 03/15/25 05:15 Completed CBC w/Auto Diff [Complete Blood Count Auto Diff] Stat Lab 03/15/25 04:36 Completed CMP [Comprehensive Metabolic Panel] Stat Lab 03/15/25 04:36 Completed UA [Urinalysis and Microscopic] Stat Lab 03/15/25 04:35 Completed Urine , HCG Qual. Stat Lab 03/15/25 04:35 Completed Medical Decision Narrative: 25-year-old female with history of kidney stone and pyelonephritis presents for several days of urinary pressure/urgency and 1 day of left-sided CVA pain. History was obtained via interactive discussion with patient. On arrival, patient is [afebrile, hemodynamically stable, satting appropriately, alert, oriented x4, GCS 15], moving all extremities spontaneously. Full physical exam performed and significant for left CVA tenderness. Differential includes but is not limited to pyelonephritis, obstructive ureterolithiasis, UTI, perinephric abscess. Workup initiated including CBC CMP UA test and CT abdomen pelvis Noncon to assess for possibility of infected stone and patient's history of kidney stone in the past.. On re-evaluation, patient [remains afebrile, HD stable.] Laboratory workup independently interpreted by me and significant for no significant leukocytosis, negative test, no significant electrolyte derangement, normal renal function. Urinalysis has 5-10 RBCs, 5-10 WBCs and 1+ bacteria. Imaging independently interpreted by me and significant for phleboliths but no definitive ureterolithiasis. See radiology read for full review of final results. Given patient history, exam and workup, patient's presentation most likely represents left-sided pyelonephritis. Patient was initiated on ceftriaxone and prescription for Bactrim for coverage of acute complicated urinary tract infection. Patient was discharged in stable condition with return precautions. I considered admission, but it was deemed necessary given patient is not systemically ill and is otherwise healthy.. Procedures Risk/Benefits of Procedure(s) Were Explained: Yes Critical Care Critical Care Time Critical Care Time: No
--- OUTSIDE RECORDS SUMMARY | 2025-03-15 04:41 | XMS_ITS | Encounter Summary ---
Author Organization Healthcare Address [address] [place] [address] Care Team Providers Care Residential Manager Name Role Phone Vishal Munson MD Primary Care Provider [phone] Encounter Details Date Type Department Care Team (Late st Contact Info) Description 02/13/2025 Telephone Obstetrics & Gynecology [address] [place] [address] Iman Pena, HIGH SCHOOL GUIDANCE COUNSELOR, CN [address] [facility] [address] [place] [address] Social History Tobacco Use Types Packs/Day Years Used Date Smoking Tobacco: Never Smokeless Tobacco: Never Alcohol Use Standard Drinks/Week Comments Never 0 (1 standard drink = 0.6 oz pur e alcohol) PHQ-2 Answer Date Recorded Patient Health Questionnaire-2 Score 0 02/12/2025 [place] Depression Scale Answer Date Recorded Last EPDS [...] on file documented as of this encounter Miscellaneous Notes * Telephone Encounter - Alissa Phillips RN - 02/13/2025 3:26 PM EDT RN messaging with pt via [employer] message. * Telephone Encounter - Lilly Chen - 02/13/2025 2:51 PM EDT Clinical Concern/Question Reason for Call: Pt contacted bariatric clinic and was told they would not accept her insurance, ptis wondering about other options. Please call. Best contact number: [phone] (mobile) Optimal time of day to reach caller: ANYTIME Additional comments/information from caller: Not Applicable Note: Please do not reply to this message. Follow-up communication and further actions as a result of this message need to be communicated with the patient directly, if the patient is not active onMyChart. If the patient is active on MyChart, they will receive notification of the communication/outcome via [employer]. documented in this encounter Plan of Treatment Not on file documented as of this encounter Goals Goal Patient Goal Type Associated Problems Recent Progress Patient-Stated? Author Delayed Delivery Care Plan CPM S[facility] (OBSTETRICS) No Open Scheduling, Background documented as of this encounter Visit Diagnoses Not on filedocumented in this encounter Additional Health Concerns Active Problems Noted Date Diagnosed Date CPM S[facility] (OBSTETRICS) 07/19/2023 Assessment Noted Time A fall risk assessment has been complete d for the patient 02/12/2025 10:12 AM EDT A Body Mass Index follow-up plan has been documented for the patient 02/13/2025 11:05 AM EDT documented as of this encounter Care Teams Residential Manager Relationship Specialty Start Date End Date Vishal Munson MD [address] [place] [id number] PCP - General 02/05/21 documented as of this encounter
--- OUTSIDE RECORDS SUMMARY | 2025-03-15 04:41 | XMS_ITS | Encounter Summary ---
Author Organization Healthcare Address [address] [place] [address] Care Team Providers Care Principal Strategist Name Role Phone Vishal Munson MD Primary Care Provider [phone] Encounter Details Date Type Department Care Team (Late st Contact Info) Description 02/18/2025 Results Follow-Up Obstetrics & Gynecology [address] [place] [address] Iman Pena, FOREST ECOLOGIST, CNM [address] [facility] [address] [place] [address] Social History Tobacco Use Types Packs/Day Years Used Date Smoking Tobacco: Never Smokeless Tobacco: Never Alcohol Use Standard Drinks/Week Comments Never 0 (1 standard drink = 0.6 oz pur e alcohol) PHQ-2 Answer Date Recorded Patient Health Questionnaire-2 Score 0 02/12/2025 [place] Depression Scale Answer Date Recorded Last EPDS [...] on file documented as of this encounter Plan of Treatment Not on [...] documented as of this encounter Care Teams Principal Strategist Relationship Specialty Start Date End Date Vishal Munson MD [address] [place] [address] PCP - General 02/05/21 documented as of this encounter
--- OUTSIDE RECORDS SUMMARY | 2025-03-15 04:41 | XMS_ITS | Encounter Summary ---
Author Organization Healthcare Address [address] [place] [address] Care Team Providers Care Cpht Name Role Phone Vishal Munson MD Primary Care Provider [phone] Encounter Details Date Type Department Care Team (Latest Contact Info) Description 02/12/2025 Travel Social History Tobacco Use Types Packs/Day Years Used Date Smoking Tobacco: Never Smokeless Tobacco: Never Alcohol Use Standard Drinks/Week Comments Never 0 (1 standard drink = 0.6 oz pur e alcohol) PHQ-2 Answer Date Recorded Patient Health Questionnaire-2 Score 0 02/12/2025 [place] Depression Scale Answer Date Recorded Last EPDS [...] Phillips RN documented as of this encounter Plan of [...] documented as of this encounter Care Teams Cpht Relationship Specialty Start Date End Date Vishal Munson MD [address] [place] [address] PCP - General 02/05/21 documented as of this encounter
--- OUTSIDE RECORDS SUMMARY | 2025-03-15 04:41 | XMS_ITS | Encounter Summary ---
Author Organization Healthcare Address [address] [place] [address] Care Team Providers Care Swat Team Member Name Role Phone Vishal Munson MD Primary Care Provider [phone] Encounter Details Date Type Department Care Team (Latest Contact Info) Description 02/13/2025 Travel Social History Tobacco Use Types Packs/Day Years Used Date Smoking Tobacco: Never Smokeless Tobacco: Never Alcohol Use Standard Drinks/Week Comments Never 0 (1 standard drink = 0.6 oz pur e alcohol) PHQ-2 Answer Date Recorded Patient Health Questionnaire-2 Score 0 02/12/2025 [place] Depression Scale Answer Date Recorded Last EPDS [...] documented as of this encounter Care Teams Swat Team Member Relationship Specialty Start Date End Date Vishal Munson MD [address] [id number] PCP - General 02/05/21 documented as of this encounter
--- OUTSIDE RECORDS SUMMARY | 2025-03-15 04:41 | XMS_ITS | Clinical Summary ---
Author Organization [facility] Address [address] [place] [address] Care Team Providers Care Supervisor Facepiece Line Name Role Phone Vishal Munson MD Primary Care Provider [phone] Allergies No known active allergies Medications metFORMIN (Glucophage) 500 MG tabletIndication s:PCOS (polycystic ovarian syndrome) Take 1 tablet by mouth 2 times a day with meals. 60 tablet 3 02/18/2025 Active Active Problems Problem Noted Date Diagnosed Date Supervision of other normal , antepartu m 11/07/2023 Microscopic hematuria 05/11/2020 Heart murmur 09/11/2017 Encounters Date Type Department Care Team Description 02/18/2025 Results Follow-Up Obstetrics & Gynecology [address] [place] [address] Iman Pena APRN, CNM 02/13/2025 Telephone Obstetrics & Gynecology [address] [place] [address] Iman Pena APRN, CNM 02/13/2025 Travel 02/12/2025 10:15 AM EDT Clinical Support Obstetrics & Gynecology [address] [place] [address] PCOS (polycystic ovarian syndrome) (Primary Dx) 02/12/2025 10:00 AM EDT Office Visit Obstetrics & Gynecology [address] [place] [address] Iman Pena APRN, CNM PCOS (polycystic ovarian syndrome) (Primary Dx); Weight gain; Abnormal facial hair 02/12/2025 Telephone Obstetrics & Gynecology [address] [facility] [place] [address] Iman Pena, SPICE GRINDER, CNM 02/12/2025 Travel from Last 3 Months Immunizations Immunization Administration Dates Next Due Influenza, injectable, quadr ivalent, preservative free 06/28/2023 Tdap 11/10/2023,,07/24/2020,2017 Social History Tobacco Use Types Packs/Day Years Used Date Smoking Tobacco: Never Smokeless Tobacco: Never Tobacco Cessation:Counseling Given: Not Answered Alcohol Use Standard Drinks/Week Comments Never 0 (1 standard drink = 0.6 oz pur e alcohol) PHQ-2 Answer Date Recorded Patient Health Questionnaire-2 Score 0 02/12/2025 [place] Depression Scale Answer Date Recorded Last EPDS [...] on file Sexual Orientation Not on file Last Filed Vital Signs Vital Sign Reading [...] Mass Index 38.1 02/12/2025 10:11 AM EDT Plan of Treatment Health Maintenance Due Date Last Done Comments [facility]-Infant/Child/Adol SDOH Screenings 1998 [facility]-Varicella Vaccines (1 of 2 - 13+ 2-dose series) 2011 HPV Vaccines (1 - 3-dose series) 2013 [facility]- SDOH Screenings 01/21/2016 [facility]-Adult SDOH Screenings 01/21/2016 [facility]-Hepatitis B Vaccines (1 of 3 - 19+ 3-dose series) 2017 [facility]-Pap Smear 2019 [id number] Vaccine (2 - season) 2024 03/27/2021 [facility]-Influenza Vaccine (Season Ended) 2025 06/28/2023 [facility]-Depression Screening 02/12/2026 02/12/2025 [facility]-DTaP,Tdap,and Td Vaccines (5 - Td or Tdap) 11/10/2033 11/10/2023, 07/24/2020, 07/24/2020, Additional history exists [facility]-Zoster Vaccines (1 of 2) 01/21/2048 [facility]-HIV Screening Completed 04/25/2024, , 11/14/2022, Additional history exists [facility]-Hepatitis C Screening Completed 2023, 06/28/2023, 11/14/2022, Additional history exists [facility]-Obesity Intervention Completed 025, 02/12/2025, 04/25/2024, Additional history exists [facility]-HIB Vaccines Aged Out No longer e ligible based on patient's age to complete this topic [facility]-Hepatitis A Vaccines Aged Out No longer eligible based on patient's age to complete this topic [facility]-IPV Vaccines Aged Out No longer e ligible based on patient's age to complete this topic [facility]-Pneumococcal Vaccine: Pediatrics (0 to 5 Years) and At-Risk Patients (6 to 49 Years) Aged Out No longer eligible based on patient's age to complete this topic [facility]-Rotavirus Vaccines Aged Out No lo nger eligible based on patient's age to complete this topic Goals Goal Patient Goal Type Associated Problems Recent Progress Patient-Stated? Author Delayed Delivery Care Plan CPM S22 PP LABOR (OBSTETRICS) No Open Scheduling, Background Procedures Procedure Name Priority Date/Time Associated Diagnosis [...] EDT PCOS (polycystic ovarian syndrome) Weight gain HEPATITIS C ANTIBODY W/REFLEX TO HCV QUANT PCR Routine 04/25/2024 3:37 PM EDT Screening examination for STD (sexually transmitted disease) HIV 1/2 ANTIBODY/ANTIGEN SCREEN WITH REFLEX TO HIV I/II DIFFERENTIATION Routine 04/25/2024 3:37 PM EDT Screening examination for STD (sexually transmitted disease) from Last 3 Months or Most Recently Relevant to Health Maintenance Results * Albumin, Serum (02/12/2025 10:47 AM EDT) Blood Venous blood specimen / Unknown Venipuncture / Unknown 02/12/2025 10:47 AM EDT 02/12/2025 1:55 PM EDT Iman Pena APRN, CNM LAB BLOOD ORDERABLES Fi nal Result [facility] [address] [place] [address] * Testosterone, Free and Total (02/12/2025 10:47 AM EDT) Testosterone Total 43.6 ng/dL 02/15/2025 3:09 PM EDT [facility] Sex Hormone Binding Globulin 31.7 11.7 - 137.2 nmol/L 02/15/2025 3:09 PM EDT [facility] Free Testosterone - Calculated (pg/mL) 7.7 1.1 - 12.9 pg/mL 02/15/2025 3:09 PM EDT [facility] Free Testosterone (%) 1.8 % 02/15/2025 3:09 PM EDT [facility] ALBUMIN CALCULATED TOX 4.8 g/dL 02/15/2025 3:09 PM EDT [facility] Blood Venous blood specimen / Unknown Venipuncture / Unknown 02/12/2025 10:47 AM EDT 02/12/2025 1:55 PM EDT Narrative [facility] - 02/15/2025 3:09 PM EDT Method: o SHBG: Electrochemiluminescence immunoassay o Total Testosterone: LC-MS/MS o Free T: Calculation Free testosterone concentration is calculated using total testosterone (measured by mass spectrometry) and the binding constants between testosterone, sex hormone-binding globulin (SHBG) and albumin. This test was developed and its performance characteristics determined by [facility]. It has not been cleared or approved by the FDA. The laboratory is regulated under CLIA as qualified to perform high-complexity testing. This test is used for clinical purposes. Iman Pena APRN, SHAWN LAB BLOOD ORDERABLES Fi nal Result Performing Organization Address City/[facility]/[place] [address] * Vitamin D 1,25 Dihydroxy (02/12/2025 10:47 AM EDT) VITAMIN D, 1, 25-DIHYDROXY 58.6 19.9 - 79.3 pg/mL 02/13/2025 4:57 AM EDT [facility] Blood Venous blood specimen / Unknown Venipuncture / Unknown 02/12/2025 10:47 AM EDT 02/12/2025 1:55 PM EDT Iamn Pena APRN, SHAWN LAB BLOOD ORDERABLES Fi nal Result Performing Organization Address [facility] [place] [address] * Prolactin, Serum (02/12/2025 10:47 AM EDT) Pathologist [facility] Prolactin, Serum 18.1 4.4 - 23.3 ng/mL 02/12/2025 3:12 PM EDT [facility] Blood Venous blood specimen / Unknown Venipuncture / Unknown 02/12/2025 10:47 AM EDT 02/12/2025 1:55 PM EDT Narrative [facility] - 02/12/2025 3:12 PM EDT Performed by [facility] electrochemiluminescent immunoassay which is traceable to the Prolactin 3rd IRP (WHO 84/500). Results obtained with different test methods or kits cannot be used interchangeably. Iman Pena APRN, SHAWN LAB BLOOD ORDERABLES Fi nal Result Performing Organization Address City/[facility] [place] [address] * ESTRADIOL, ADULT PREMENOPAUSAL, FEMALE (02/12/2025 10:47 AM EDT) Estradiol 166 pg/mL 02/12/2025 5:3 7 PM EDT [facility] Blood Venous blood specimen / Unknown Venipuncture / Unknown 02/12/2025 10:47 AM EDT 02/12/2025 1:55 PM EDT Narrative [facility] - 02/12/2025 5:37 PM EDT Females >17 Y (pg/mL): Follicular Phase 26 -233 Ovulatory Peak Phase 60 - 600 Luteal Phase 30 - 305 Post-Menopausal <138 us Iman Pena SPICE GRINDER, CNM LAB BLOOD ORDERABLES Fi nal Result [facility] [address] [place] [address] * CBC (02/12/2025 10:47 AM EDT) WBC Count 7.00 3.70 - 10.30 10*3/uL LAB HEMATOLOGY METHOD 02/12/2025 2:18 PM EDT [facility] RBC Count 4.53 3.90 - 5.20 10*6/uL LAB HEMATOLOGY METHOD 02/12/2025 2:18 PM EDT [facility] HGB 13.1 11.2 - 15.7 g/dL LAB HEMATOLOGY METHOD 02/12/2025 2:18 PM EDT [facility] HCT 39.6 34.0 - 45.0 % LAB HEMATOLOGY METHOD 02/12/2025 2:18 PM EDT [facility] Platelet Count 352 155 - 369 10*3/uL LAB HEMATOLOGY METHOD 02/12/2025 2:18 PM EDT [facility] MCV 87 79 - 98 fL LAB HEMATOLOGY METHOD 02/12/2025 2:18 PM EDT [facility] MCH 28.9 26.0 - 32.0 pg LAB HEMATOLOGY METHOD 02/12/2025 2:18 PM EDT [facility] MCHC 33.1 30.7 - 35.5 g/dL LAB HEMATOLOGY METHOD 02/12/2025 2:18 PM EDT [facility] RDW 12.8 11.5 - 14.5 % LAB HEMATOLOGY METHOD 02/12/2025 2:18 PM EDT [facility] MPV 11.4 8.8 - 12.5 fL LAB HEMATOLOGY METHOD 02/12/2025 2:18 PM EDT [facility] nRBC 0.0 <=0.0 per 100 WBCs LAB HEMATOLOGY METHOD 02/12/2025 2:18 PM EDT [facility] Blood Venous blood specimen / Unknown Venipuncture / Unknown 02/12/2025 10:47 AM EDT 02/12/2025 1:55 PM EDT Iman Pena APRN, SHAWN LAB BLOOD ORDERABLES Fi nal Result Performing Organization Address City/[facility] Co de Phone Number [facility] [address] [place] [address] * (ABNORMAL) TSH (02/12/2025 10:47 AM EDT) Thyroid Stimulating Hormone, Plasma 0.37(L) 0.40 - 4.20 uIU/mL 02/12/2025 2:42 PM EDT [facility] Blood Venous blood specimen / Unknown Venipuncture / Unknown 02/12/2025 10:47 AM EDT 02/12/2025 1:55 PM EDT Narrative [facility] - 02/12/2025 2:42 PM EDT Trimester Specific Ranges TSH ( IU/mL) 1st Trimester 0.1 - 3.0 2nd Trimester 0.19 - 4.06 3rd Trimester 0.3 - 3.7 Iman Pena APRN, SHAWN LAB BLOOD ORDERABLES Fi nal Result Performing Organization Address City/[facility]/ZIP Co de Phone Number [facility] [address] [place] [address] * T4, free (02/12/2025 10:47 AM EDT) Free T4, Plasma 1.0 0.8 - 1.7 ng/dL 02/12/2025 2:42 PM EDT [facility] Blood Venous blood specimen / Unknown Venipuncture / Unknown 02/12/2025 10:47 AM EDT 02/12/2025 1:55 PM EDT Narrative [facility] - 02/12/2025 2:42 PM EDT Free T4 Trimester Specific Ranges 1st Trimester 0.9 - 1.50 ng/dL 2nd Trimester 0.7 - 1.40 ng/dL 3rd Trimester 0.7 - 1.24 ng/dL Iman Pena APRN, SHAWN LAB BLOOD ORDERABLES Fi nal Result Performing Organization Address [facility]/ZIP Co de Phone Number [facility] [address] [place] [address] * Hemoglobin A1c (02/12/2025 10:47 AM EDT) Hemoglobin A1c 5.1 <5.7 % 02/12/2025 3:15 PM EDT [facility] Blood Venous blood specimen / Unknown Venipuncture / Unknown 02/12/2025 10:47 AM EDT 02/12/2025 1:55 PM EDT Narrative [facility] - 02/12/2025 3:15 PM EDT HA1C Interpretive Data: Diagnosis of Diabetes: Diabetic > or = 6.5% Pre-diabetic 5.7 to 6.4% Non-diabetic < or = 5.6% Glycemic Targets for Type I and Type II Diabetics: Non- Adults <7.0% Adults <6.0% Children and Adolescents <7.5% Source: [place] [employer]. Standards of medical care in diabetes,2017. Diabetes Care.2017:40 (suppl 1):S1-S135. Iman Pena APRN, CNM LAB BLOOD ORDERABLES Fi nal Result Performing Organization Address City/[facility]/[place] [address] * Follicle Stimulating Hormone, Serum (02/12/2025 10:47 AM EDT) FSH 4.8 mIU/mL 02/12/2025 2:5 7 PM EDT [facility] Blood Venous blood specimen / Unknown Venipuncture / Unknown 02/12/2025 10:47 AM EDT 02/12/2025 1:55 PM EDT Narrative [facility] - 02/12/2025 2:57 PM EDT FSH [...] ORDERABLES Fi nal Result Performing Organization Address City/[facility] Co de Phone Number [facility] [address] [place] [address] * Vitamin B12, Serum (02/12/2025 10:47 AM EDT) Pathologist [facility] Vitamin B12, Serum 287 210 - 1,033 pg/mL 02/12/2025 2:57 PM EDT [facility] Blood Venous blood specimen / Unknown Venipuncture / Unknown 02/12/2025 10:47 AM EDT 02/12/2025 1:55 PM EDT Iman Pena APRN, CNM LAB BLOOD ORDERABLES Fi nal Result Performing Organization Address City/[facility]/ZIP Co de Phone Number [facility] [address] [place] [address] * (ABNORMAL) Lipid Profile, Plasma (02/12/2025 10:47 AM EDT) Cholesterol, Plasma 184 <200 mg/dL 02/12/2025 2:42 PM EDT [facility] Comment: Cholesterol Reference Range (age >17 years): Desirable <200 mg/dL Borderline 200 to 239 mg/dL Undesirable >239 mg/dL HDL 56 >=50 mg/dL 02/12/2025 2:42 PM EDT [facility] Comment: HDL Cholesterol Reference Ranges (age >17 years): Female, acceptable > or = 50 mg/dL Male, acceptable > or = 40 mg/dL Triglycerides, Plasma 85 <150 mg/dL 02/12/2025 2:42 PM EDT [facility] Comment: Triglyceride Reference Range (age >17 years): Desirable: <150 mg/dL Borderline high: 150 to 199 mg/dL High: 200 to 499 mg/dL Very high: >499 mg/dL Increased risk of pancreatitis: >1000 mg/dL Cholesterol/HDL Ratio 3 02/12/2025 2:42 PM EDT [facility] LDL, Calculated 112(H) <100 mg/dL 2:42 PM EDT [facility] Comment: LDL Cholesterol Reference Range (age [...] 12 hours? Unknown 02/12/2025 2:42 PM EDT [facility] Blood Venous blood specimen / Unknown Venipuncture / Unknown 02/12/2025 10:47 AM EDT 02/12/2025 1:55 PM EDT us Iman Pena APRN, CNM LAB BLOOD ORDERABLES Fi nal Result [facility] [address] [place] [address] * HIV 1 & 2 Antibody/Antigen Screen (04/25/2024 3:37 PM EDT) Pathologist [facility] HIV 1 & 2 Antibody/Antigen Screen Non Reactive Non Reactive 04/25/2024 7:41 PM EDT [facility] Comment:Screening for HIV 1 & 2 antibodies, and P24 antigen is NONREACTIVE. No confirmatory testing is required. Blood Venous blood specimen / Unknown Venipuncture / Unknown 04/25/2024 3:37 PM EDT 04/25/2024 6:28 PM EDT Emma Fragoso APRN, BRIGITTE LAB BLOOD ORDERABLES Fi nal Result Performing Organization Address City/[facility]/ZIP Co de Phone Number [facility] [address] [place] [address] * Hepatitis C Antibody w/Reflex to HCV Quant PCR (04/25/2024 3:37 PM EDT) [facility] Hepatitis C Antibody Negative Negative 04/25/2024 6:57 PM EDT [facility] Blood Venous blood specimen / Unknown Venipuncture / Unknown 04/25/2024 3:37 PM EDT 04/25/2024 6:28 PM EDT Emma Fragoso APRN, BRIGITTE LAB BLOOD ORDERABLES Fi nal Result Performing Organization Address City/[facility] Co de Phone Number [facility] [address] [place] [address] from Last 3 Months or Most Recently Relevant to Health Maintenance Additional Health Concerns Active Problems Noted Date Diagnosed Date CPM S22 PP LABOR (OBSTETRICS) 07/19/2023 Insurance [facility] MEDICAID Care Teams Supervisor Facepiece Line Relationship Specialty Start Date End Date Vishal Munson MD [address] [place] [address] PCP - General 02/05/21
--- OUTSIDE RECORDS SUMMARY | 2025-03-15 04:41 | XMS_ITS | Encounter Summary ---
Author Organization Healthcare Address [address] [place] [address] Care Team Providers Care Court Magistrate Name Role Phone Vishal Munson MD Primary Care Provider [phone] Encounter Details Date Type Department Care Team (Late st Contact Info) Description 02/12/2025 Telephone Obstetrics & Gynecology [address] [place] [address] Iman Pena, JEWELRY MAKING INSTRUCTOR, CN [address] [facility] [address] [place] [address] Social History Tobacco Use Types Packs/Day Years Used Date Smoking Tobacco: Never Smokeless Tobacco: Never Alcohol Use Standard Drinks/Week Comments Never 0 (1 standard drink = 0.6 oz pur e alcohol) PHQ-2 Answer Date Recorded Patient Health Questionnaire-2 Score 0 02/12/2025 [place] Depression Scale Answer Date Recorded Last EPDS [...] all 02/12/2025 10:12 AM EDT Alissa Phillips , RN Patient Health Questionnaire-2 Score 0 02/12/2025 10:12 AM EDT Alissa Phillips, RN documented as of this encounter Miscellaneous Notes * Telephone Encounter - Nora Trevino - 02/12/2025 10:13 AM EDT [facility]- Rosette... FAXED MABLE to [phone] documented in this encounter Plan of Treatment [...] documented as of this encounter Care Teams Court Magistrate Relationship Specialty Start Date End Date Vishal Munson MD [address] [place] [address] PCP - General 02/05/21 documented as of this encounter
[2025-03-15 04:48] LABS: Microscopic, Urine URINE MICROSCOPIC (MICROSCOPIC)
[2025-03-15 05:05] LABS: Appearance,Urine CLEAR (Clear); Bilirubin,Urine Negative (Negative); Blood, Urine 2+ (Negative); Color,Urine YELLOW (Yellow); Glucose,Urine (UA) Negative (Negative); Ketones,Urine Negative (Negative); Leukocyte Esterase,Urine Negative (Negative); Nitrate,Urine Negative (Negative); Protein,Urine Negative (Negative); Specific Gravity, Urine 1.025 (1.005-1.030); Urobilinogen,Urine 0.2 EU/dl (0.2)
[2025-03-15 05:06] LABS: Urine Pregnancy, HCG Qual. Negative (Negative)
--- NOTE | 2025-03-15 05:15 | CT_ITS ---
PROCEDURE INFORMATION: Exam: CT Abdomen And Pelvis Without Contrast Exam date and time: 03/15/2025 5:37 AM Age: 25 years old Clinical indication: Abdominal pain; Flank; Left; Additional info: Left flank pain TECHNIQUE: Imaging protocol: Computed tomography of the abdomen and pelvis without contrast. Radiation optimization: All CT scans at this facility use at least one of these dose optimization techniques: automated exposure control; mA and/or kV adjustment per patient size (includes targeted exams where dose is matched to clinical indication); or iterative reconstruction. COMPARISON: CT ABDOMEN PELVIS W CON 12/20/2024 12:08 PM FINDINGS: Liver: Normal. No mass. Gallbladder and biliary ducts: Cholecystectomy. Pancreas: Normal. No ductal dilation. Spleen: Normal. No splenomegaly. Adrenal glands: Normal. No mass. Kidneys and ureters: No definite renal stone or obstruction is identified. Stomach and bowel: Unremarkable. No obstruction. No mucosal thickening. Appendix: No evidence of appendicitis. Intraperitoneal space: Unremarkable. No free air. No significant fluid collection. Vasculature: There are 2 small calcifications in the left pelvis however these have been seen on multiple prior examinations and likely represent phleboliths. Lymph nodes: Unremarkable. No enlarged lymph nodes. Urinary bladder: Unremarkable as visualized. Reproductive: Unremarkable as visualized. Bones/joints: Unremarkable. No acute fracture. Soft tissues: Unremarkable. IMPRESSION: 1. No definite stone or obstruction. No acute process otherwise identified. 2. Cholecystectomy.
[2025-03-15 05:17] LABS: Alanine Aminotransferase 20 U/L (12-78); Albumin Level 4.3 g/dl (3.5-5.0); Albumin/Globulin Ratio 1.2 (1.1-1.8); Alkaline Phosphatase 71 U/L (38-126); Anion Gap 12.7 mEq/L (5-15); Aspartate Amino Transferase 28 U/L (14-36); Bilirubin,Total 0.8 mg/dl (0.2-1.3); Blood Urea Nitrogen 11 mg/dl (7-17); Carbon Dioxide 28 mmol/L (22.0-30.0); Chloride 100 mmol/L (98-107); Creatinine Clearance Estimated 184 mL/min (50-200); Estimated Glomerular Filt Rate 100 ml/min (>60); GFR (African American) 121 ML/MIN (>60); Globulin 3.7 g/dL (1.3-3.2); Glucose 98 mg/dl (74-100); Potassium 3.7 mmoL/L (3.5-5.1); Sodium 137 mmol/L (136-145)
[2025-03-15 05:22] LABS: Basophils % 0.2 % (0.1-2.0); Eosinophils # 0.1 Kmm3 (0.0-0.4); Eosinophils % 1.6 % (0.1-12.0); Hematocrit 37.5 % (37.0-47.0); Hemoglobin 12.6 g/dL (12.2-16.2); Immature Granulocytes # 0.02 10^3uL; Immature Granulocytes % 0.2 %; Lymphocytes # 3.1 K/mm3 (0.7-4.5); Lymphocytes % 34.8 % (10-50); Mean Corpuscular HGB Conc 33.6 g/dL (31.8-35.4); Mean Corpuscular Hemoglobin 29.8 pg (27.0-31.2); Mean Corpuscular Volume 88.7 fl (81-99); Mean Platelet Volume 11.1 fl (7.4-10.4); Monocytes # 0.9 K/mm3 (0.1-1.0); Monocytes % 9.7 % (1.7-9.3); Neutrophils # 4.8 K/mm3 (1.8-7.8); Neutrophils % 53.5 % (37.0-80.0); Nucleated Red Blood Cells # 0 10^3/uL; Nucleated Red Blood Cells % 0 %; Platelet Count 360 K/mm3 (142-424); Red Blood Count 4.23 M/mm3 (4.20-5.40); Red Cell Distribution Width 12.7 % (11.5-17.5); White Blood Count 8.9 K/mm3 (4.8-10.8)
[2025-03-15 05:42] LABS: Bacteria,Urine 1+ /lpf
[2025-03-15] MEDS: CEFTRIAXONE 1 GM 1 GM in 0.9 % SODIUM CHLORIDE 50 ML IV (05:52)
== END 2025-03-15 06:37 | disposition home or self-care (01) ==
PROVIDERS: Emergency Provider Emergency Medicine; PCP Family Medicine
DX: N10 Acute pyelonephritis (principal); M54.59 Other low back pain; R39.15 Urgency of urination; Z87.442 Personal history of urinary calculi
CPT/HCPCS: 74176; 80053; 81001; 81025; 85025; 96365; 99284; J0696

== ENCOUNTER 2025-05-02 10:50 | Outpatient (CLI) | payer MEDICAID, SELFPAY ==
--- OUTSIDE RECORDS SUMMARY | 2025-05-05 11:01 | XMS_ITS | Encounter Summary ---
Author Organization Healthcare Address [address] [place] [address] Care Team Providers Care Human Resources Designate Name Role Phone Vishal Munson MD Primary Care Provider [phone] Encounter Details Date Type Department Care Team (Late st Contact Info) Description 02/13/2025 Telephone Obstetrics & Gynecology [address] [place] [address] Iman Pena, RETAIL POS SPECIALIST, CN [address] [facility] [address] [place] [address] Social History Tobacco Use Types Packs/Day Years Used Date Smoking Tobacco: Never Smokeless Tobacco: Never Alcohol Use Standard Drinks/Week Comments Never 0 (1 standard drink = 0.6 oz pur e alcohol) PHQ-2 Answer Date Recorded Patient Health Questionnaire-2 Score 0 02/12/2025 [place] Depression Scale Answer Date Recorded Last EPDS [...] PM EDT RN messaging with pt via [employer] message. * Telephone Encounter - Lilly Chen - 02/13/2025 2:51 PM EDT Clinical Concern/Question Reason for Call: Pt contacted bariatric clinic and was told they would not accept her insurance, ptis wondering about other options. Please call. Best contact number: [phone] (mobile) Optimal time of day to reach [...] will receive notification of the communication/outcome via [employer]. documented in this encounter Plan of Treatment [...] documented as of this encounter Care Teams Human Resources Designate Relationship Specialty Start Date End Date Vishal Munson MD [address] [place] [address] PCP - General 02/05/21 documented as of this encounter
--- OUTSIDE RECORDS SUMMARY | 2025-05-05 11:01 | XMS_ITS | Clinical Summary ---
Author Organization [facility] Address [address] [place] [address] Care Team Providers Care Folder And Notcher Name Role Phone Vishal Munson MD Primary Care Provider [phone] Allergies No known active allergies Medications metFORMIN [...] 02/18/2025 Results Follow-Up Obstetrics & Gynecology [address] [place] [address] Iman Pena APRN, CNM 02/13/2025 Telephone Obstetrics & Gynecology [address] [place] [address] Iman Pena APRN, CNM 02/13/2025 Travel 02/12/2025 10:15 AM EDT Clinical Support Obstetrics & Gynecology [address] [place] [address] PCOS (polycystic ovarian syndrome) (Primary Dx) 02/12/2025 10:00 AM EDT Office Visit Obstetrics & Gynecology [address] [place] [address] Iman Pena APRN, CNM PCOS (polycystic ovarian syndrome) (Primary Dx); Weight gain; Abnormal facial hair 02/12/2025 Telephone Obstetrics & Gynecology [address] [place] [address] Iman Pena, SOLE CONFORMING MACHINE OPERATOR, CNM 02/12/2025 Travel from Last 3 Months [...] Recorded Patient Health Questionnaire-2 Score 0 02/12/2025 Scheller Depression Scale Answer Date Recorded Last EPDS [...] of 2 - 13+ 2-dose series) 2011 [facility]- SDOH Screenings 01/21/2016 [facility]-Adult SDOH Screenings 01/21/2016 [facility]-Hepatitis B Vaccines (1 of 3 - 19+ 3-dose series) 2017 [facility]-Pap Smear 2019 [id number]-09 Vaccine (2 - season) 2024 03/27/2021 HPV Vaccines (1 - 3-dose SCDM series) 2025 [facility]-Influenza Vaccine (#1) 2025 06/28/2023 [facility]-Depression Screening 02/12/2026 02/12/2025 [facility]-DTaP,Tdap,and [...] CNM LAB BLOOD ORDERABLES Fi nal Result [facility] [address] [place] [address] * Testosterone, Free and Total (02/12/2025 10:47 AM EDT) Testosterone Total 43.6 ng/dL 02/15/2025 3:09 PM EDT [facility] Sex Hormone Binding Globulin 31.7 11.7 - 137.2 nmol/L 02/15/2025 3:09 PM EDT [facility] Free Testosterone - Calculated (pg/mL) 7.7 1.1 - 12.9 pg/mL 02/15/2025 3:09 PM EDT [facility] Free Testosterone (%) 1.8 % 02/15/2025 3:09 PM EDT [facility] ALBUMIN CALCULATED TOX 4.8 g/dL 02/15/2025 3:09 PM EDT [facility] Blood Venous blood specimen / Unknown Venipuncture / Unknown 02/12/2025 10:47 AM EDT 02/12/2025 1:55 PM EDT Narrative [facility] - 02/15/2025 3:09 PM EDT Method: o SHBG: Electrochemiluminescence immunoassay o Total Testosterone: LC-MS/MS o Free T: Calculation Free testosterone concentration is calculated using total testosterone (measured by mass spectrometry) and the binding constants between testosterone, sex hormone-binding globulin (SHBG) and albumin. This test was developed and its performance characteristics determined by [facility]. It has not been cleared or approved by the FDA. The laboratory is regulated under CLIA as qualified to perform high-complexity testing. This test is used for clinical purposes. Iman Pena APRN, SHAWN LAB BLOOD ORDERABLES Fi nal Result Performing Organization Address City/[facility]/[place] [address] * Vitamin D 1,25 Dihydroxy (02/12/2025 10:47 AM EDT) VITAMIN D, 1, 25-DIHYDROXY 58.6 19.9 - 79.3 pg/mL 02/13/2025 4:57 AM EDT [facility] Blood Venous blood specimen / Unknown Venipuncture / Unknown 02/12/2025 10:47 AM EDT 02/12/2025 1:55 PM EDT Iman Pena APRN, CANDY LAB BLOOD ORDERABLES Fi nal Result Performing Organization Address [facility] [place] [address] * Prolactin, Serum (02/12/2025 10:47 AM EDT) Prolactin, Serum 18.1 4.4 - 23.3 ng/mL 02/12/2025 3:12 PM EDT [facility] Blood Venous blood specimen / Unknown Venipuncture / Unknown 02/12/2025 10:47 AM EDT 02/12/2025 1:55 PM EDT Narrative [facility] - 02/12/2025 3:12 PM EDT Performed by Calvin electrochemiluminescent immunoassay which is traceable to the Prolactin 3rd IRP (WHO 84/500). Results obtained with different test methods or kits cannot be used interchangeably. Iman Pena APRN, CANDY LAB BLOOD ORDERABLES Fi nal Result Performing Organization Address City/[facility] [place] [address] * ESTRADIOL, ADULT PREMENOPAUSAL, FEMALE (02/12/2025 10:47 AM EDT) Estradiol 166 pg/mL 02/12/2025 5:3 7 PM EDT [facility] Blood Venous blood specimen / Unknown Venipuncture / Unknown 02/12/2025 10:47 AM EDT 02/12/2025 1:55 PM EDT Narrative [facility] - 02/12/2025 5:37 PM EDT Females >17 Y (pg/mL): Follicular Phase 26 -233 Ovulatory Peak Phase 60 - 600 Luteal Phase 30 - 305 Post-Menopausal <138 us Iman Pena SOLE CONFORMING MACHINE OPERATOR, CNM LAB BLOOD ORDERABLES Fi nal Result [facility] [address] [place] [address] * CBC (02/12/2025 10:47 AM EDT) WBC Count 7.00 3.70 - 10.30 10*3/uL LAB HEMATOLOGY METHOD 02/12/2025 2:18 PM EDT [facility] RBC Count 4.53 3.90 - 5.20 10*6/uL LAB HEMATOLOGY METHOD 02/12/2025 2:18 PM EDT [facility] HGB 13.1 11.2 - 15.7 g/dL LAB HEMATOLOGY METHOD 02/12/2025 2:18 PM EDT [facility] HCT 39.6 34.0 - 45.0 % LAB HEMATOLOGY METHOD 02/12/2025 2:18 PM EDT [facility] Platelet Count 352 155 - 369 10*3/uL LAB HEMATOLOGY METHOD 02/12/2025 2:18 PM EDT [facility] MCV 87 79 - 98 fL LAB HEMATOLOGY METHOD 02/12/2025 2:18 PM EDT [facility] MCH 28.9 26.0 - 32.0 pg LAB HEMATOLOGY METHOD 02/12/2025 2:18 PM EDT [facility] MCHC 33.1 30.7 - 35.5 g/dL LAB HEMATOLOGY METHOD 02/12/2025 2:18 PM EDT [facility] RDW 12.8 11.5 - 14.5 % LAB HEMATOLOGY METHOD 02/12/2025 2:18 PM EDT [facility] MPV 11.4 8.8 - 12.5 fL LAB HEMATOLOGY METHOD 02/12/2025 2:18 PM EDT [facility] nRBC 0.0 <=0.0 per 100 WBCs LAB HEMATOLOGY METHOD 02/12/2025 2:18 PM EDT [facility] Blood Venous blood specimen / Unknown Venipuncture / Unknown 02/12/2025 10:47 AM EDT 02/12/2025 1:55 PM EDT Iman Pena APRN, SHAWN LAB BLOOD ORDERABLES Fi nal Result Performing Organization Address City/[facility] Co de Phone Number [facility] [address] [place] [address] * (ABNORMAL) TSH (02/12/2025 10:47 AM EDT) Thyroid Stimulating Hormone, Plasma 0.37(L) 0.40 - 4.20 uIU/mL 02/12/2025 2:42 PM EDT [facility] Blood Venous blood specimen / Unknown Venipuncture / Unknown 02/12/2025 10:47 AM EDT 02/12/2025 1:55 PM EDT Narrative [facility] - 02/12/2025 2:42 PM EDT Trimester Specific Ranges TSH ( IU/mL) 1st Trimester 0.1 - 3.0 2nd Trimester 0.19 - 4.06 3rd Trimester 0.3 - 3.7 Iman Pena APRN, SHAWN LAB BLOOD ORDERABLES Fi nal Result Performing Organization Address City/[facility]/ZIP Co de Phone Number [facility] [address] [place] [address] * T4, free (02/12/2025 10:47 AM EDT) Free T4, Plasma 1.0 0.8 - 1.7 ng/dL 02/12/2025 2:42 PM EDT [facility] Blood Venous blood specimen / Unknown Venipuncture / Unknown 02/12/2025 10:47 AM EDT 02/12/2025 1:55 PM EDT Narrative [facility] - 02/12/2025 2:42 PM EDT Free T4 Trimester Specific Ranges 1st Trimester 0.9 - 1.50 ng/dL 2nd Trimester 0.7 - 1.40 ng/dL 3rd Trimester 0.7 - 1.24 ng/dL Iman Pena APRN, SHAWN LAB BLOOD ORDERABLES Fi nal Result Performing Organization Address [facility] de Phone Number [facility] [address] [place] [address] * Hemoglobin A1c (02/12/2025 10:47 AM EDT) Hemoglobin A1c 5.1 <5.7 % 02/12/2025 3:15 PM EDT [facility] Blood Venous blood specimen / Unknown Venipuncture / Unknown 02/12/2025 10:47 AM EDT 02/12/2025 1:55 PM EDT Narrative [facility] - 02/12/2025 3:15 PM EDT HA1C Interpretive Data: Diagnosis of Diabetes: Diabetic > or = 6.5% Pre-diabetic 5.7 to 6.4% Non-diabetic < or = 5.6% Glycemic Targets for Type I and Type II Diabetics: Non- Adults <7.0% Adults <6.0% Children and Adolescents <7.5% Source: [place] [employer]. Standards of medical care in diabetes,2017. Diabetes Care.2017:40 (suppl 1):S1-S135. Iman Pena APRN, CNM LAB BLOOD ORDERABLES Fi nal Result Performing Organization Address City/[facility]/ZIP Co de Phone Number [facility] [address] [place] [address] * Follicle Stimulating Hormone, Serum (02/12/2025 10:47 AM EDT) FSH 4.8 mIU/mL 02/12/2025 2:5 7 PM EDT [facility] Blood Venous blood specimen / Unknown Venipuncture / Unknown 02/12/2025 10:47 AM EDT 02/12/2025 1:55 PM EDT Narrative [facility] - 02/12/2025 2:57 PM EDT [...] ORDERABLES Fi nal Result Performing Organization Address [facility] Co de Phone Number [facility] [address] [place] [address] * Vitamin B12, Serum (02/12/2025 10:47 AM EDT) [facility] Vitamin B12, Serum 287 210 - 1,033 pg/mL 02/12/2025 2:57 PM EDT [facility] Blood Venous blood specimen / Unknown Venipuncture / Unknown 02/12/2025 10:47 AM EDT 02/12/2025 1:55 PM EDT Iman Pena APRN, CNM LAB BLOOD ORDERABLES Fi nal Result Performing Organization Address [facility]/ZIP Co de Phone Number [facility] [address] [place] [address] * (ABNORMAL) Lipid Profile, Plasma (02/12/2025 10:47 AM EDT) Cholesterol, Plasma 184 <200 mg/dL 02/12/2025 2:42 PM EDT [facility] Comment: Cholesterol Reference Range (age >17 years): Desirable <200 mg/dL Borderline 200 to 239 mg/dL Undesirable >239 mg/dL HDL 56 >=50 mg/dL 02/12/2025 2:42 PM EDT [facility] Comment: HDL Cholesterol Reference Ranges (age >17 years): Female, acceptable > or = 50 mg/dL Male, acceptable > or = 40 mg/dL Triglycerides, Plasma 85 <150 mg/dL 02/12/2025 2:42 PM EDT [facility] Comment: Triglyceride Reference Range (age >17 years): Desirable: <150 mg/dL Borderline high: 150 to 199 mg/dL High: 200 to 499 mg/dL Very high: >499 mg/dL Increased risk of pancreatitis: >1000 mg/dL Cholesterol/HDL Ratio 3 02/12/2025 2:42 PM EDT [facility] LDL, Calculated 112(H) <100 mg/dL 2:42 PM EDT [facility] Comment: LDL Cholesterol Reference Range [...] 12 hours? Unknown 02/12/2025 2:42 PM EDT [facility] Blood Venous blood specimen / Unknown Venipuncture / Unknown 02/12/2025 10:47 AM EDT 02/12/2025 1:55 PM EDT us Iman Pena APRN, CNM LAB BLOOD ORDERABLES Fi nal Result [facility] [address] [place] [address] * HIV 1 & 2 Antibody/Antigen Screen (04/25/2024 3:37 PM EDT) [facility] HIV 1 & 2 Antibody/Antigen Screen Non [...] ORDERABLES Fi nal Result Performing Organization Address City/[facility]/ZIP Co de Phone Number [facility] [address] [place] [address] * Hepatitis C Antibody w/Reflex to HCV Quant PCR (04/25/2024 3:37 PM EDT) [facility] Hepatitis C Antibody Negative Negative 04/25/2024 6:57 PM EDT [facility] Blood Venous blood specimen / Unknown Venipuncture / Unknown 04/25/2024 3:37 PM EDT 04/25/2024 6:28 PM EDT Emma Fragoso APRN, BRIGITTE LAB BLOOD ORDERABLES Fi nal Result Performing Organization Address City/[facility] Co de Phone Number [facility] [address] [place] [address] from Last 3 Months or Most Recently Relevant to Health Maintenance Additional Health Concerns Active Problems Noted Date Diagnosed Date CPM S22 PP LABOR (OBSTETRICS) 07/19/2023 Insurance [facility] MEDICAID Care Teams Folder And Notcher Relationship Specialty Start Date End Date Vishal Munson MD [address] [place] [address] PCP - General 02/05/21
== END 2025-05-02 23:59 | disposition home or self-care (01) ==
LOC: LAB.DROPOF 05-05 10:51
PROVIDERS: PCP Nurse Practitioner Family; Visit Provider Nurse Practitioner Family
DX: R35.0 Frequency of micturition (principal)
CPT/HCPCS: 87086; 87088; 87186